=== PATIENT | female | born 1975 | race Asian ===

== ENCOUNTER 2022-02-13 07:11 | Outpatient (REF) | payer OTHER, SELFPAY ==
--- NOTE | ~2022-02-13 | MR_ITS ---
EXAMINATION: MR ANGIOGRAPHY BRAIN WITHOUT CONTRAST MRI BRAIN WITHOUT CONTRAST CLINICAL INFORMATION: Positive family history of brain aneurysm. Evaluate for possible aneurysm or mass. COMPARISON: None MR BRAIN: TECHNIQUE: Multiplanar multisequence MR imaging of the brain was done without IV contrast. FINDINGS: Brain Volume: Within normal limits within the limitations of qualitative assessment. Structural: No malformations. Brain and Meninges: DWI sequence demonstrates no restricted diffusion to suggest acute or subacute cerebral ischemia. A few punctate FLAIR/T2 signal hyperintensities are noted within the subcortical white matter of both frontal lobes, which are nonspecific findings. Otherwise the brain is normal in morphology and signal intensity. Gradient refocused imaging demonstrates no evidence for abnormal magnetic susceptibility artifact to suggest hemorrhage, hemosiderin staining or abnormal mineralization. No extra-axial fluid collections, space-occupying process or mass effect are identified. Coe-white matter differentiation is well maintained. Ventricles and Subarachnoid Spaces: The ventricular system and subarachnoid spaces are within normal limits without hydrocephalus. Orbital Structures: Mildly elongated shape of the orbits, right more than left, noted. Correlate for any associated myopia to explain this. Otherwise grossly unremarkable appearance to the orbits within the limitations of the exam. Vascular: Signal voids are noted in the visualized major intracranial vessels. Osseous Structures, Sinuses/Mastoids, Extracranial Soft Tissues: There is marked nasal septal deviation to the left with a keke bullosa in the right middle turbinate and minor mucosal thickening in the ethmoid complex. Osseous marrow signal intensity appears grossly within normal limits. The visualized extra cranial soft tissue structures appear within normal limits. MR/MR angio head wo con IMPRESSION: 1. A few scattered punctate white matter T2 hyperintensities noted in the frontal lobes bilaterally are nonspecific findings, but can be associated with migraine-associated vasculopathy in the appropriate clinical setting. 2. Sinonasal and orbital findings as discussed above. 3. Otherwise normal noncontrast MRI of the brain. MR ANGIOGRAPHY BRAIN: TECHNIQUE: 3-D [id number] MR angiography of the intracranial circulation was done with multiplanar reformatted reconstructions. FINDINGS: Anterior Circulation: The intracranial internal carotid arteries are patent and normal in caliber with tortuosity of both carotid siphons, right more than left. On image 109 of series 3 and image 128 of the reconstructed coronal series 304, there is a 2 mm sessile outpouching of flow-related enhancement along the lateral wall of the cavernous portion of the right ICA, suggesting a small aneurysm, likely extradural in location. The A1 and A2 segments are patent and normal in caliber. The anterior communicating artery is diminutive but otherwise unremarkable. The M1 segments are patent and normal in caliber with smooth contours with normal-appearing MCA bifurcations and M2 branches bilaterally. There is normal arborization of the visualized A2 and M2 branches. Posterior Circulation: The intradural vertebral arteries are patent and normal in caliber and appear codominant. The left posteroinferior cerebellar artery is visualized and appears normal with visualization of both anteroinferior cerebellar arteries. The basilar artery is patent and normal in caliber with smooth contours and the superior cerebellar and posterior cerebral arteries are patent and normal in caliber. The posterior communicating arteries are not clearly visualized. IMPRESSION: 1. As described above, findings are suggestive of a possible sessile, 2 mm aneurysm arising from the lateral wall of the cavernous right ICA, with considerable tortuosity of the right carotid siphon. Follow-up as per clinical indications. 2. Otherwise unremarkable intracranial MRA.
== END 2022-02-13 07:12 | disposition home or self-care (01) ==
LOC: HO.MRI 07:11
PROVIDERS: PCP Physician Assistant; Visit Provider Physician Assistant
DX: R51.9 Headache, unspecified (principal); Z82.49 Family history of ischemic heart disease and other diseases of the circulatory system
CPT/HCPCS: 70544; 70551

== ENCOUNTER 2022-02-21 15:19 | Outpatient (REF) | payer OTHER, SELFPAY ==
[2022-02-21 15:36] LABS: MANUAL DIFF FLAG NO
[2022-02-21 16:06] LABS: Basophils Absolute Auto 0.1 X10*3/uL (0.0-0.2); Basophils Percent Auto 0.3 % (0-2); Eosinophils Absolute Auto 0.3 X10*3/uL (0.0-0.4); Hematocrit 43.6 % (37.0-47.0); Hemoglobin 15.3 g/dl (12.0-16.0); Imm Gran Abs Auto 0.12 X10*3/uL (0.00-0.03); Imm Gran Pct Auto 0.7 % (0.0-0.4); Lymphocytes Absolute Auto 3.1 X10*3/uL (1.2-4.9); Lymphocytes Percent Auto 18.6 % (20-40); Mean Corpuscular HGB Conc 35.1 g/dl (31.0-35.0); Mean Corpuscular Hemoglobin 31.8 pg (27.0-33.0); Mean Corpuscular Volume 90.6 fL (80.0-98.0); Monocytes Absolute Auto 1.1 X10*3/uL (0.1-1.2); Monocytes Percent Auto 6.8 % (2-11); Neutrophils Absolute Auto 11.9 x10*3/uL (2.0-8.3); Neutrophils Percent Auto 71.6 % (45-73); Platelet Count 368 X10*3/uL (160-400); Red Blood Count 4.81 X10*6/uL (4.20-5.50); Red Cell Distribution Width 11.7 % (11.0-16.0); White Blood Count 16.6 X10*3/uL (4.8-10.8)
[2022-02-21 16:32] LABS: Alanine Aminotransferase 68 U/L (0-31); Albumin Level 4.6 g/dL (3.5-5.0); Alkaline Phosphatase 77 U/L (39-117); Anion Gap 18 (12-20); Aspartate Amino Transferase 42 U/L (5-31); Bilirubin Total 0.6 mg/dL (0.0-1.0); Blood Urea Nitrogen 19 mg/dL (9-16); Calcium 10.3 mg/dL (8.4-10.2); Carbon Dioxide 25 mmol/L (22-29); Chloride 99 mmol/L (96-108); Cholesterol 245 mg/dL; Estimated Glomerular Filt Rate > 60; Glucose Random 96 mg/dL (60-115); HDL Cholesterol 50 mg/dL; Potassium 4.1 mmol/L (3.3-5.1); Sodium 138 mmol/L (135-145); Total Protein 8.3 g/dL (6.5-8.0); Triglycerides 443 mg/dL
[2022-02-21 16:55] LABS: TSH reflex Free T4 1.03 uIU/mL (0.32-4.0); Vitamin D 25-OH Total 24.9 ng/mL (>30)
[2022-02-22 16:02] LABS: Follicle Stimulating Hormone 4.8 mIU/mL; Lutenizing Hormone 4.8 mIU/mL
[2022-03-03 03:37] LABS: Estradiol Free 4.58 pg/mL; Estradiol, Ultrasensitive 293 pg/mL
[2022-03-15 11:02] LABS: Progesterone 0.8
== END 2022-02-21 15:20 | disposition home or self-care (01) ==
LOC: HO.LAB 15:19
PROVIDERS: PCP Physician Assistant; Visit Provider Physician Assistant
DX: Z00.00 Encounter for general adult medical examination without abnormal findings (principal); E55.9 Vitamin D deficiency, unspecified; E51.9 Thiamine deficiency, unspecified
CPT/HCPCS: 36415; 80053; 80061; 82306; 82670; 82681; 83001; 83002; 84144; 84443; 85025

== ENCOUNTER → 2022-03-29 16:07 | Outpatient (REF) | payer OTHER, SELFPAY | LOC: HO.SL 16:07 | PROVIDERS: Visit Provider Psychiatry & Neurology Neurology | DX: R06.83 Snoring (principal) | CPT/HCPCS: 95806 ==

== ENCOUNTER 2022-04-19 08:26 | Outpatient (REF) | payer OTHER, SELFPAY ==
--- NOTE | ~2022-04-19 | US_ITS ---
EXAMINATION: US ABDOMEN COMPLETE CLINICAL INFORMATION: Abnormal levels of serum enzymes. COMPARISON: Ultrasound abdomen complete 10/19/2014. TECHNIQUE: Real-time imaging of the abdominal viscera. FINDINGS: PANCREAS: Normal. ABDOMINAL AORTA: The proximal, mid, and distal segments are normal in caliber. INFERIOR VENA CAVA: Visualized portions are normal. LIVER: The liver is normal in size. The liver contour is normal. There is increased liver echogenicity. No focal hepatic lesion. There is no intrahepatic biliary duct dilatation seen. GALLBLADDER: There is mild wall thickness measuring 0.17 cm. The gallbladder is physiologically distended without evidence of stones, sludge, polyps, or pericholecystic fluid. COMMON BILE DUCT: Normal in caliber measuring 0.34 cm in diameter. RIGHT KIDNEY: Normal. No hydronephrosis. No renal calculi or focal parenchymal lesions. The kidney measures 11.2 cm in maximum dimension. LEFT KIDNEY: Normal. No hydronephrosis. No renal calculi or focal parenchymal lesions. The kidney measures 11.7 cm in maximum dimension. SPLEEN: Normal. The spleen measures 8.9 cm in maximum dimension. FREE FLUID: None. US/US abdomen complete IMPRESSION: 1. Diffuse echogenic liver without focal lesion. 2. The rest of the abdominal ultrasound is unremarkable.
[2022-04-19 11:28] LABS: INTERNATIONAL NORM RATIO 0.9 (0.9-1.1); Prothrombin Time 10.4 SEC (10.0-13.1)
[2022-04-19 11:49] LABS: Cholesterol 244 mg/dL; Gamma Glutamyl Transpeptidase 69 U/L (7-33); HDL Cholesterol 48 mg/dL; LDL Cholesterol Calculated 147 mg/dl; Triglycerides 249 mg/dL
[2022-04-19 12:07] LABS: HBS Num1 54.53 mIU/mL (0-7.99); HBc Num1 0.18 S/CO (0.00-0.79); HBsAGNum1 0.25 S/CO (0.00-0.99); Hepatitis B Core Antibody Nonreactive (Nonreactive); Hepatitis B Surface Antigen Negative (Negative); ~Hepatitis B Surface Antibody REACTIVE (Nonreactive); ~Hepatitis C Antibody Nonreactive (Nonreactive)
[2022-04-19 12:10] LABS: Estimated Average Glucose 111 mg/dL; Hemoglobin A1c % 5.5 %
[2022-04-19 12:30] LABS: Hepatitis A Antibody IgG Nonreactive (Nonreactive)
[2022-04-20 19:49] LABS: Alanine Aminotransferase 79 U/L (0-31); Albumin Level 4.3 g/dL (3.5-5.0); Alkaline Phosphatase 65 U/L (39-117); Aspartate Amino Transferase 55 U/L (5-31); Bilirubin Direct 0.2 mg/dL (0.0-0.5); Bilirubin Total 0.8 mg/dL (0.0-1.0); Ferritin 268 ng/mL (10-250); Iron 132 mcg/dL (30-160); Percent Iron Saturation 44 % (15-50); Total Iron Binding Capacity 297 mcg/dL (228-428); Total Protein 7.3 g/dL (6.5-8.0); Unsaturated Iron Binding 165 ug/dL
[2022-04-23 22:58] LABS: Immunoglobulin G 1292 mg/dL (600-1640)
[2022-04-24 09:33] LABS: Anti Nuclear Antibody Pattern Nuclear, Homogeneous; Anti Nuclear Antibody Screen POSITIVE (NEGATIVE)
[2022-04-25 14:33] LABS: Liver Kidney Microsomal Ab <=20.0 U (<=20.0)
[2022-04-26 11:03] LABS: Smooth Muscle Antibody <20 U (<20)
== END 2022-04-19 08:27 | disposition home or self-care (01) ==
LOC: HO.HMGCX 08:26
PROVIDERS: PCP Physician Assistant; Visit Provider Internal Medicine
DX: R74.8 Abnormal levels of other serum enzymes (principal)
CPT/HCPCS: 36415; 76700; 80061; 80076; 82728; 82784; 82977; 83036; 83540; 85610; 86015; 86038; 86039; 86376; 86704; 86706; 86708; 86803; 87340

== ENCOUNTER 2022-04-20 12:23 | Outpatient (REF) | payer OTHER, SELFPAY | END 2022-04-20 12:24 | disposition home or self-care (01) | LOC: HO.LAB 12:23 | PROVIDERS: Visit Provider Internal Medicine | DX: Z13.89 Encounter for screening for other disorder (principal) ==

== ENCOUNTER 2022-05-03 07:02 | Day surgery (SDC) | payer OTHER, SELFPAY ==
[2022-04-27 13:22] VITALS: BMI 33.1
--- NOTE | 2022-05-02 10:19 | P.CONAN_ITS ---
Documented by User: Merna Lim NP 05/02/22 10:21 HPI - Anesthesia Eval Consult details Narrative: 47yo F for Colonoscopy PMFSH Active Problems Active Problems: All Active Problems (Updated 03/23/22 @ 17:08 by Veronica Contreras MD) Rectal bleeding (Acute) Elevated liver enzymes (Acute) Hypersomnia (Acute) Snoring (Acute) Migraine (Acute) Chronic headaches (Acute) TMJ (temporomandibular joint disorder) (Acute) Cervicalgia (Acute) Hyperlipemia (Acute) Anxiety (Acute) Depression (Acute) Sleep problem (Acute) Asthma (Acute) Past Medical History Medical History Anxiety Asthma Cervicalgia Chronic headaches Depression Hyperlipemia Hypersomnia Migraine Sleep problem Snoring TMJ (temporomandibular joint disorder) Family History Family History Mother Aneurysm Hyperlipidemia Father Hyperlipidemia Skin cancer Atrial fibrillation Daughter Hyperlipidemia Son SVT (supraventricular tachycardia) Cexpm-Fyqwmmpdo-Yetpl (WPW) syndrome Surgical History Surgical History H/O: hysterectomy [place] teeth extracted Social History Social History Are you a primary personal carer to a significant other at home: No Do you presently have visiting nurse or other home services: No Alcohol intake: never Patient Tobacco Use Status: Never used Tobacco Use of substances other than those prescribed or required for medical reasons: No Are you DNR?: No Advance Directives: No Advance Directives Information Provided: Yes Advance Directives on File: No Recently lost weight without trying: No Eating poorly because of decreased appetite: No Nutrition Risks: No Nutritional Risk Poor oral hygiene: No (Intact teeth) Meds Allergies Allergy/AdvReac Type Severity Reaction Status Date / Time shellfish derived Allergy Mild Gastrointestinal Verified 05/03/22 07:14 Upset tree nut Allergy Anaphylaxis Verified 05/03/22 07:14 enviromental Allergy Mild Itchy Uncoded 04/27/22 13:21 Eyes, sneezing, wheezing peanuts Allergy Mild Anaphylaxis Uncoded 04/27/22 13:21 eggs Allergy Unknown Gastrointestinal Uncoded 04/27/22 13:21 Upset Home Medications Medication Instructions Recorded Confirmed Last Taken Type cetirizine 10 mg tablet (Zyrtec) 10 mg PO DAILY 03/21/22 04/27/22 Unknown History cholecalciferol (vitamin D3) 50 50 mcg PO DAILY 03/21/22 04/27/22 Unknown History mcg (2,000 unit) capsule dextroamphetamine-amphetamine 5 mg 1 tab PO BID 03/21/22 04/27/22 Unknown History tablet epinephrine 0.3 mg/0.3 mL IM DAILY PRN Allergic Reaction 03/21/22 03/21/22 Unknown History injection, auto-injector multivitamin with minerals-folic 1 tab PO DAILY 03/21/22 04/27/22 Unknown History acid 200 mcg chewable tablet (Women's Multivitamin Gummies) progesterone micronized 100 mg 100 mg PO QPM 03/21/22 04/27/22 Unknown History capsule triamcinolone acetonide 0.1 % 1 appl topical TID 03/21/22 04/27/22 Unknown History topical cream albuterol sulfate 90 mcg/actuation 1 inh inhalation QID PRN Wheezing 03/23/22 04/27/22 Unknown History aerosol inhaler amitriptyline 10 mg tablet 10 mg PO DAILY 03/23/22 04/27/22 Unknown History fluticasone propionate 44 2 puff inhalation BID 03/23/22 04/27/22 05/03/22 06:00 History mcg/actuation HFA aerosol inhaler (Flovent HFA) Exam Exam Date and Time: May 02, 2022 1019 Height,Weight and Vital Signs: Height 5 ft 3.5 in Weight 86.183 kg Pertinent Lab Results Pertinent Lab Results: Laboratory Tests 02/21/22 02/21/22 15:34 15:34 WBC 16.6 H Hgb 15.3 Hct 43.6 Plt Count 368 Sodium 138 Potassium 4.1 Chloride 99 Carbon Dioxide 25 BUN 19 H Creatinine 0.85 Assessment and Plan Assessment Anesthesia Assessment: Chart Reviewed Documented by User: Keeley Sun MD 05/03/22 07:45 PMFSH Past Medical History Medical History Anxiety Asthma Cervicalgia Chronic headaches Depression Hyperlipemia Hypersomnia Migraine Sleep problem Snoring TMJ (temporomandibular joint disorder) Functional capacity: independent ambulation Patient : No Family History Family History Mother Aneurysm Hyperlipidemia Father Hyperlipidemia Skin cancer Atrial fibrillation Daughter Hyperlipidemia Son SVT (supraventricular tachycardia) Biswh-Bvgdgcviq-Nwowj (WPW) syndrome Family history of problems with anesthesia: No Surgical History Surgical History H/O: hysterectomy [place] teeth extracted History of Problems with Anesthesia: No Social History Social History Are you a primary personal carer to a significant other at home: No Do you presently have visiting nurse or other home services: No Alcohol intake: never Patient Tobacco Use Status: Never used Tobacco Use of substances other than those prescribed or required for medical reasons: No Are you DNR?: No Advance Directives: No Advance Directives Information Provided: Yes Advance Directives on File: No Recently lost weight without trying: No Eating poorly because of decreased appetite: No Nutrition Risks: No Nutritional Risk Poor oral hygiene: No (Intact teeth) Meds Allergies Allergy/AdvReac Type Severity Reaction Status Date / Time shellfish derived Allergy Mild Gastrointestinal Verified 05/03/22 07:14 Upset tree nut Allergy Anaphylaxis Verified 05/03/22 07:14 enviromental Allergy Mild Itchy Uncoded 04/27/22 13:21 Eyes, sneezing, wheezing peanuts Allergy Mild Anaphylaxis Uncoded 04/27/22 13:21 eggs Allergy Unknown Gastrointestinal Uncoded 04/27/22 13:21 Upset Home Medications Medication Instructions Recorded Confirmed Last Taken Type cetirizine 10 mg tablet (Zyrtec) 10 mg PO DAILY 03/21/22 04/27/22 Unknown History cholecalciferol (vitamin D3) 50 50 mcg PO DAILY 03/21/22 04/27/22 Unknown History mcg (2,000 unit) capsule dextroamphetamine-amphetamine 5 mg 1 tab PO BID 03/21/22 04/27/22 Unknown History tablet epinephrine 0.3 mg/0.3 mL IM DAILY PRN Allergic Reaction 03/21/22 03/21/22 Unknown History injection, auto-injector multivitamin with minerals-folic 1 tab PO DAILY 03/21/22 04/27/22 Unknown History acid 200 mcg chewable tablet (Women's Multivitamin Gummies) progesterone micronized 100 mg 100 mg PO QPM 03/21/22 04/27/22 Unknown History capsule triamcinolone acetonide 0.1 % 1 appl topical TID 03/21/22 04/27/22 Unknown History topical cream albuterol sulfate 90 mcg/actuation 1 inh inhalation QID PRN Wheezing 03/23/22 04/27/22 Unknown History aerosol inhaler amitriptyline 10 mg tablet 10 mg PO DAILY 03/23/22 04/27/22 Unknown History fluticasone propionate 44 2 puff inhalation BID 03/23/22 04/27/22 05/03/22 06:00 History mcg/actuation HFA aerosol inhaler (Flovent HFA) Exam Airway Mallampati Class: II TM Dist: >3cm Neck ROM: Full Heart: RRR Lungs: CTA Assessment and Plan Final Anesthetic Review Family History of Problems with Anesthesia: No History of Problems with Anesthesia: No NPO: Yes ASA Class: II Final Preanesthetic Review: No Changes in Pt Med Stat, Meds/Allgs Chart Reviewed, Consent Obtained/Reviewed and Anes Risks/Benef Reviewed Patient Risk: Low Procedure Risk: Low Anesthetic Plan Anesthetic Plan: MAC: Disposition: Standard PACU
[2022-05-03 07:19] VITALS: BP 121/74; PULSE 89; RESP 16; TEMP 36.1; O2SAT 99
--- NOTE | 2022-05-03 07:33 | MHC.SHP ---
Pre-Procedural Eval Section A Date of Service: 05/03/22 Section B Chief Complaint: BRBPR Details of Present Illness: 47 y.o F with hx of intermittent bleeding [place] here for a diagnostic colonoscopy. Father had hx of polyps. Relevant Social History: None Present Medications: see Short Stay Collaborative assessment Medical History: Significant History (Asthma, TMJ disorder, migraines, fatty liver ) History of Previous Operations: Relevant previous surgery/procedure and date(s) (Hysterectomy 2020) Allergies: Allergies Allergy/AdvReac Type Severity Reaction Status Date / Time shellfish derived Allergy Mild Gastrointestinal Verified 05/03/22 07:14 Upset tree nut Allergy Anaphylaxis Verified 05/03/22 07:14 enviromental Allergy Mild Itchy Uncoded 04/27/22 13:21 Eyes, sneezing, wheezing peanuts Allergy Mild Anaphylaxis Uncoded 04/27/22 13:21 eggs Allergy Unknown Gastrointestinal Uncoded 04/27/22 13:21 Upset Review of Systems Review of Systems Comment: 10 point ROS negative except as above Exam Exam Comment: Gen appear: No acute distress, well nourished HEENT: no icterus Chest: No overt resp distress Abd: soft, nontender, nondistended Psych: Stable affect, answering questions appropriately Neuro: A/Ox3 noted to move all extremities spontaneously Ext: no peripheral edema Plan Diagnosis/Plan: Unchanged I have reviewed the history and physical and performed a pertinent physical examination on my patient. No changes have occurred unless specified. Time Spent With Patient Time: Total time managing care of this patient today ____ minutes.
--- NOTE | 2022-05-03 07:35 | P.OP_ITS ---
Operative Note Operative Note Date of Service: 05/03/22 Narrative: Procedure: Colonoscopy Indication: Bright red bleeding per rectum Endoscopist: Veronica Contreras MD Anesthesia Provider: Meera Johnson CRNA Anesthesia type: MAC Instrument: Olympus [id number]-H190L Consent: Indication, risks vs benefits, and alternatives were discussed with the patient who gave written informed consent to proceed. EKG, pulse, pulse oximetry and blood pressure were monitored throughout the procedure. Please see anesthesia flowsheet. Procedure: The patient was brought to the procedure room and placed in the left lateral decubitus position. IV medications were administered by the anesthesia provider in attendance. A digital rectal exam was performed which was normal. The colonoscope was then inserted through the anus and advanced through the colon to the cecum at 85 cm,and terminal ileum. Mucosa was carefully examined under high definition white light as the instrument was slowly withdrawn in a retrograde panoramic fashion. Retroflexion was performed in ascending colon and rectum. The procedure was not difficult. There were no immediate obvious complications. The quality of the prep was BBPS: 3+2+3 = adequate Withdrawal time 13 minutes. Limitations: No limitations. Findings: Mucosa: Normal to cecum and terminal ileum. Protruding lesions: * 1 sessile polyp of size 6 mm in sigmoid colon. Cold snare polypectomy was performed. The polyp was completely removed and retrieved. * Large internal hemorrhoids without stigmata of recent bleeding. Impression: 1. Normal colon and terminal ileum mucosa 2. Total of 1 polyp removed from sigmoid colon. 3. Internal hemorrhoids Recommendations: - Follow path results. - Repeat colonoscopy in 7-10 years if polyp is adenoma.
[2022-05-03] MEDS: Lactated Ringers 1,000 ML 100 ML IVCONT (07:40)
[2022-05-03 09:04] VITALS: BP 108/60; PULSE 800; RESP 18; TEMP 36.4; O2SAT 100
--- NOTE | 2022-05-03 09:11 | HO.POSTANES ---
Post Anesthesia Evaluation Post Anesthesia Evaluation Vital Signs: Vital Signs Temp Pulse Resp BP Pulse Ox O2 Del Method O2 Flow Rate 05/03/22 09:04 97.6 F 800 H 18 108/60 100 Simple Mask 6 05/03/22 07:19 96.9 F 89 16 121/74 99 Room Air Anesthesia: Monitored Mental Status: Awake Pain Control: Satisfactory Nausea/Vomiting: None Hydration: Adequate Anesthesia-Related Issues: No Anes. Related Issues
[2022-05-03 09:19] VITALS: BP 127/73; PULSE 74; RESP 18; TEMP 36.4; O2SAT 99
== END 2022-05-03 11:15 | disposition home or self-care (01) ==
PROVIDERS: PCP Physician Assistant; Visit Provider Internal Medicine
PROC: 0DJD8ZZ Inspection of Lower Intestinal Tract, Via Natural or Artificial Opening Endoscopic (ICD-10-PCS; CPT 45378; principal; 2022-05-03 08:20)
DX: K62.5 Hemorrhage of anus and rectum (principal); R74.8 Abnormal levels of other serum enzymes; Z83.71 Family history of colonic polyps; K63.5 Polyp of colon; K64.8 Other hemorrhoids; K76.0 Fatty (change of) liver, not elsewhere classified; E78.5 Hyperlipidemia, unspecified; Z83.3 Family history of diabetes mellitus; J45.909 Unspecified asthma, uncomplicated; G47.10 Hypersomnia, unspecified; F51.9 Sleep disorder not due to a substance or known physiological condition, unspecified; R06.83 Snoring; G43.909 Migraine, unspecified, not intractable, without status migrainosus; Z79.51 Long term (current) use of inhaled steroids; Z79.899 Other long term (current) drug therapy
CPT/HCPCS: 45385; 88305

== ENCOUNTER → 2022-05-09 15:59 | Outpatient (BNVA) | payer OTHER, SELFPAY | PROVIDERS: PCP Physician Assistant; Visit Provider Internal Medicine | DX: R74.8 Abnormal levels of other serum enzymes (principal) ==

== ENCOUNTER 2022-07-12 07:38 | Outpatient (REF) | payer OTHER, SELFPAY ==
[2022-07-12 10:54] LABS: MANUAL DIFF FLAG NO
[2022-07-12 11:27] LABS: Basophils Absolute Auto 0.1 X10*3/uL (0.0-0.2); Basophils Percent Auto 0.5 % (0-2); Eosinophils Absolute Auto 0.4 X10*3/uL (0.0-0.4); Eosinophils Percent Auto 3.9 % (0-4); Hematocrit 42.9 % (37.0-47.0); Hemoglobin 14.6 g/dl (12.0-16.0); Imm Gran Abs Auto 0.04 X10*3/uL (0.00-0.03); Imm Gran Pct Auto 0.4 % (0.0-0.4); Lymphocytes Absolute Auto 2.3 X10*3/uL (1.2-4.9); Lymphocytes Percent Auto 21.1 % (20-40); Mean Corpuscular Hemoglobin 31.6 pg (27.0-33.0); Mean Corpuscular Volume 92.9 fL (80.0-98.0); Mean Platelet Volume 10.6 fL (9.4-12.3); Monocytes Absolute Auto 0.7 X10*3/uL (0.1-1.2); Monocytes Percent Auto 6.9 % (2-11); Neutrophils Absolute Auto 7.2 x10*3/uL (2.0-8.3); Neutrophils Percent Auto 67.2 % (45-73); Platelet Count 357 X10*3/uL (160-400); Red Blood Count 4.62 X10*6/uL (4.20-5.50); Red Cell Distribution Width 11.7 % (11.0-16.0); White Blood Count 10.7 X10*3/uL (4.8-10.8)
[2022-07-12 11:56] LABS: Alanine Aminotransferase 74 U/L (0-31); Alkaline Phosphatase 66 U/L (39-117); Anion Gap 15 (12-20); Aspartate Amino Transferase 42 U/L (5-31); Bilirubin Total 0.6 mg/dL (0.0-1.0); Blood Urea Nitrogen 18 mg/dL (9-16); Calcium 9.2 mg/dL (8.4-10.2); Carbon Dioxide 25 mmol/L (22-29); Chloride 105 mmol/L (96-108); Estimated Glomerular Filt Rate > 60; Glucose Fasting 101 mg/dL (60-99); Potassium 4.5 mmol/L (3.3-5.1); Sodium 140 mmol/L (135-145); Total Protein 6.9 g/dL (6.5-8.0)
[2022-07-13 18:53] LABS: Follicle Stimulating Hormone 4.2 mIU/mL; Lutenizing Hormone 6.4 mIU/mL
[2022-07-15 12:04] LABS: TS Negative Control Passed; TS Panel A 0; TS Panel B 0; TS Positive Control Passed; TSpotTB Negative (Negative)
[2022-07-18 15:18] LABS: Progesterone 0.1 ng/mL
[2022-07-19 23:13] LABS: Estradiol Ultra Sensitive 127 pg/mL
== END 2022-07-12 07:39 | disposition home or self-care (01) ==
LOC: HO.10HDL 07:38
PROVIDERS: Visit Provider Physician Assistant
DX: J45.998 Other asthma (principal); Z90.710 Acquired absence of both cervix and uterus
CPT/HCPCS: 36415; 80053; 82670; 83001; 83002; 84144; 85025; 86481

== ENCOUNTER 2022-07-12 07:56 | Outpatient (REF) | payer OTHER, SELFPAY ==
--- NOTE | ~2022-07-12 | MM_ITS ---
EXAMINATION: MM SCREENING DIGITAL BREAST TOMOSYNTHESIS, BILATERAL CLINICAL INFORMATION: Screening. Asymptomatic. The lifetime risk of breast cancer based on the Tyrer-Cuzick Model is 9%. COMPARISON: Outside mammography: 01/25/2021, 01/28/2018, 01/22/2017 ([facility]) TECHNIQUE: Digital breast tomosynthesis is performed in both the craniocaudal and mediolateral oblique views along with computer-aided detection (CAD). Synthesized 2D images are generated from the tomosynthesis. FINDINGS: There are scattered areas of fibroglandular density (ACR BI-RADS breast composition Category b). Breast tissue composition borders on heterogeneously dense. Parenchymal pattern is similar to prior outside exams and there is no developing density or architectural abnormality. There are no significant masses, abnormal calcifications, or other abnormalities. The axilla are unremarkable. No significant changes. MM/MM tomosynthesis screening BI IMPRESSION: No mammographic evidence of malignancy. ASSESSMENT: BI-RADS 1: Negative RECOMMENDATION: Routine annual mammography screening. This patient's information was entered into a reminder system with a target due date for their next mammogram.
== END 2022-07-12 07:57 | disposition home or self-care (01) ==
LOC: HO.MAMMO 07:56
PROVIDERS: PCP Physician Assistant; Visit Provider Physician Assistant
DX: Z12.31 Encounter for screening mammogram for malignant neoplasm of breast (principal)
CPT/HCPCS: 77063; 77067

== ENCOUNTER → 2022-08-31 15:59 | Outpatient (BNVA) | payer OTHER, SELFPAY | PROVIDERS: PCP Physician Assistant; Visit Provider Internal Medicine | DX: Z13.89 Encounter for screening for other disorder (principal) ==

== ENCOUNTER 2022-11-22 07:58 | Outpatient (REF) | payer OTHER, SELFPAY | END 2022-11-22 07:59 | disposition home or self-care (01) | LOC: HO.10HDL 07:58 | PROVIDERS: Visit Provider Internal Medicine | DX: R74.8 Abnormal levels of other serum enzymes (principal) | CPT/HCPCS: 36415; 80076; 85027 ==

== ENCOUNTER 2022-11-26 08:33 | Outpatient (REF) | payer OTHER, SELFPAY ==
--- NOTE | ~2022-11-26 | US_ITS ---
EXAMINATION: US COMPLETE ABDOMEN WITH LIVER ELASTOGRAPHY CLINICAL INFORMATION: Abnormal liver function tests. COMPARISON: None available. TECHNIQUE: Real-time imaging of the abdominal viscera. Noninvasive ultrasound liver fibrosis assessment is performed using Juma ElastPQ point quantification shear wave elastography (2D-SWE) with a C5-2 MHz transducer. Multiple elastography samples are obtained. FINDINGS: PANCREAS: Normal. The visualized pancreatic head and body are normal in appearance. The remainder of the pancreas is obscured from visualization by the overlying bowel gas. ABDOMINAL AORTA: The proximal, middle, and distal aortic segments are normal in caliber. INFERIOR VENA CAVA: Visualized portions are normal. LIVER: The liver demonstrates increased size, normal contour and increased echogenicity. No focal lesion or intrahepatic biliary duct dilatation. The right lobe measures 17.6 cm in length. The left lobe measures 13.9 cm in length. Portal flow is towards the liver (hepatopetal). Shear wave liver elastography median stiffness is 2.16 m/s (reference: normal median stiffness is 1.3 m/s or less). IQR/median stiffness to assess sampling precision is 0.03 (reference: good quality data set is IQR/median stiffness of 0.15 or less). GALLBLADDER: Normal. The gallbladder is physiologically distended without evidence of stones, sludge, polyps, wall thickening or pericholecystic fluid. COMMON BILE DUCT: Normal in caliber measuring 0.2 cm in diameter. RIGHT KIDNEY: Normal. No hydronephrosis. No renal calculi or focal parenchymal lesions. The kidney measures 10.9 cm in maximum dimension. LEFT KIDNEY: Normal. No hydronephrosis. No renal calculi or focal parenchymal lesions. The kidney measures 11.9 cm in maximum dimension. SPLEEN: Normal. The spleen measures 9.9 cm in maximum dimension. FREE FLUID: None. US/US abdomen comp w elastography IMPRESSION: 1. There is generalized increase in hepatic echotexture, consistent with fatty infiltration or hepatocellular disease. Please correlate clinically. No focal hepatic mass or intrahepatic biliary dilatation is seen. 2. Liver elastography: Measuremensts are consistent with compensated advanced chronic liver disease. 3. There is mild hepatomegaly. REFERENCE: Society of Radiologists in Ultrasound Liver Stiffness Thresholds (2020): LIVER STIFFNESS THRESHOLDS: *Liver Stiffness equal or less than 1.3 m/s: High probability of being normal. *Liver Stiffness less than 1.7 m/s: In the absence of other known clinical signs, rules out compensated advanced chronic liver disease. *Liver Stiffness 1.7-2.1 m/s: Suggestive of compensated advanced chronic liver disease but need further test for confirmation. *Liver Stiffness over 2.1 m/s: Rules in compensated advanced chronic liver disease. *Liver Stiffness over 2.4 m/s: Suggestive of clinically significant portal hypertension. QUALITY OF DATA SET: *IQR/Median value equal or less than 0.15 implies a quality data set. *IQR/Median value over 0.15 implies a poor quality data set. SIGNIFICANT CHANGE FROM PRIOR EXAM: Significant change if liver stiffness measurement is 10% or greater from prior exam. OTHER CONSIDERATIONS: The stage of liver fibrosis may be overestimated in the setting of acute hepatitis, liver inflammation, elevated liver function tests, hepatic vascular congestion, obstructive cholestasis, non-fasting state, and infiltrative diseases such as amyloidosis and lymphoma. In some patients with NAFLD, the liver stiffness thresholds for compensated advanced chronic liver disease may be lower. In causes other than viral hepatitis and NAFLD, liver stiffness thresholds are not well established.
== END 2022-11-26 08:34 | disposition home or self-care (01) ==
LOC: HO.US 08:33
PROVIDERS: PCP Physician Assistant; Visit Provider Internal Medicine
DX: R74.8 Abnormal levels of other serum enzymes (principal)
CPT/HCPCS: 76705; 76981

== ENCOUNTER 2022-11-28 16:02 | Outpatient (AMB) | payer OTHER, SELFPAY ==
[2022-11-28 16:04] VITALS: BP 135/74; PULSE 90; BMI 33.8
--- NOTE | 2022-11-28 16:04 | MHC.OFFVIS ---
Intake Vital Signs 11/28/22 16:04 Height 5 ft 3.5 in Weight 194 lb 0.108 oz BMI 33.8 BP 135/74 Blood Pressure Location Lt brachial Position Sitting Pulse 90 Intake Visit Reasons: 3 month follow up Intake Note: Kait presents in the office as a 3 month follow up. CC: US on Saturday - She states no concerns today. Allergies shellfish derived Allergy (Mild, Verified 11/28/22 16:06) Gastrointestinal Upset tree nut Allergy (Verified 11/28/22 16:06) Anaphylaxis enviromental Allergy (Mild, Uncoded 11/28/22 16:06) Itchy Eyes, sneezing, wheezing peanuts Allergy (Mild, Uncoded 11/28/22 16:06) Anaphylaxis eggs Allergy (Unknown, Uncoded 11/28/22 16:06) Gastrointestinal Upset HPI HPI Comments History of Present Illness Details This is a 47-year-old female presents to the office today for follow up for rectal bleeding and fatty liver. Initial visit 03/23/2022: Patient states that for the last few years, ordered of, she has noticed blood streaked on stool and on wiping. This is often associated with hard stool, although has sometimes seen and with the soft stool as well. Does not have any abdominal pain, nausea, vomiting, diarrhea, melena with this. Denies any unintentional weight loss. Family history is pertinent for polyps in father. Patient is unsure of his age of diagnosis. In addition, has been told she has fatty liver disease for the last few years. Most recent LFTs have significantly elevated transaminases with ALT to ALT ratio 2-1 consistent with R[place]ORD. Risk factors include obesity, hyperlipidemia, family history of diabetes. 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 Surgical history: Hysterectomy 2020 Colonoscopy 05/03/2022: 6 mm hyperplastic polyp in the sigmoid colon. Adequate preparation. Large internal hemorrhoids. 05/09/23: Patient reports that she continues to see intermittent red blood, but obviously is reassured that this is likely from hemorrhoids as initially expected. Results of recent workup for elevated transaminases also reviewed. Ultrasound consistent with fatty liver. In addition, labs show normal INR, mildly high ferritin with normal saturation, normal A1c, LARS positive but anti liver kidney and anti smooth muscle antibody negative. Patient is not immune to hepatitis-A 08/31/22: Continues with intermittent BRBPR even without straining. Occurs at least once a week. Otherwise no acute GI complaints. LFTs from Jun reviewed transaminases more or less unchanged. Pt has not been able to take Vit E regularly. 11/28/22: Continues with intermittent BRBPR despite taking anusol suppositories. However on further review pt did not complete 5-7 day course but instead took those sporadically PRN. Has been taking fiber. Took Vit E x 3 months. Labs reviewed and LFts continue to be elevated. However reassuringly Fib 4 is low. [facility] Medical History Anxiety Asthma Cervicalgia Chronic headaches Depression Hyperlipemia Hypersomnia Migraine Sleep problem Snoring TMJ (temporomandibular joint disorder) Surgical History H/O: hysterectomy Hx of colonoscopy [place] teeth extracted Family History Mother Aneurysm Hyperlipidemia Father Hyperlipidemia Skin cancer Atrial fibrillation Daughter Hyperlipidemia Son SVT (supraventricular tachycardia) Weqfe-Ujaxdvkvy-Ghopg (WPW) syndrome Social History Are you a primary cardiac care nurse to a significant other at home: No Do you presently have visiting nurse or other home services: No Alcohol intake: never Patient Tobacco Use Status: Never used Tobacco Review of Systems Const All systems reviewed & are unremarkable except as noted in HPI and below Physical Exam Vital Signs: Last Vital Signs Pulse 90 11/28/22 16:04 BP 135/74 11/28/22 16:04 BMI result Body Mass Index 33.8 Gen appear: No acute distress, well nourished HEENT: no icterus, no cervical lymphadenopathy Chest: No overt resp distress CVS: S1/S2, regular Abd: soft, nontender, nondistended Psych: Stable affect, answering questions appropriately Neuro: A/Ox3 noted to move all extremities spontaneously Ext: no peripheral edema Assessment & Plan Assessment & Plan (1) Elevated liver enzymes: Code(s): R74.8 - Abnormal levels of other serum enzymes Plan: Likely secondary to MAFLD/R[place]. Patient drinks rarely. No family history of liver diseases. Fib-4 0.66 (no advanced fibrosis). Counseled on weight loss of at least 10% body weight. Was also advised to discuss statin therapy with her PCP given hyperlipidemia to control metabolic factors. Since has low Fib 4, will see her in a year. (2) Rectal bleeding: Code(s): K62.5 - Hemorrhage of anus and rectum Plan: Likely secondary to hemorrhoidal bleeding based on colonoscopy results. Pt was counseled to use topical steroid rectally at least 5-7 days in a row for relief. Lidocaine-hydrocortisone cream Rxed as per her preference. Cont fiber, sitz bath Would like to hold off referral for surgical management at this time. Medications: New lidocaine HCl-hydrocortison ac 3 %-2.5 % (7 gram) 1 appl [place] BEDTIME 7 grams 0RF Coding Level of Care Code Est Pt Level 4 (64182) Diagnoses Elevated liver enzymes R74.8 Rectal bleeding K62.5
== END 2022-11-28 16:25 | disposition home or self-care (01) ==
PROVIDERS: PCP Physician Assistant; Visit Provider Internal Medicine
DX: R74.8 Abnormal levels of other serum enzymes (principal); K62.5 Hemorrhage of anus and rectum
CPT/HCPCS: 99214

== ENCOUNTER → 2022-11-28 16:02 | Outpatient (BNVA) | payer OTHER, SELFPAY | PROVIDERS: PCP Physician Assistant; Visit Provider Internal Medicine ==

== ENCOUNTER 2023-07-18 07:44 | Outpatient (REF) | payer OTHER, SELFPAY | END 2023-07-18 07:45 | disposition home or self-care (01) | LOC: HO.MAMMO 07:44 | PROVIDERS: PCP Physician Assistant; Visit Provider Physician Assistant | DX: Z12.31 Encounter for screening mammogram for malignant neoplasm of breast (principal) | CPT/HCPCS: 77063; 77067 ==

== ENCOUNTER → 2023-07-18 07:45 | Outpatient (BNV) | payer OTHER, SELFPAY | PROVIDERS: PCP Physician Assistant; Visit Provider Radiology Diagnostic Radiology | DX: Z12.31 Encounter for screening mammogram for malignant neoplasm of breast (principal) | CPT/HCPCS: 77063; 77067 ==

== ENCOUNTER 2023-07-23 09:18 | Outpatient (REF) | payer OTHER, SELFPAY ==
[2023-07-23 13:02] LABS: Hemoglobin 15.1 g/dl (12.0-16.0); Mean Corpuscular HGB Conc 34.3 g/dl (31.0-35.0); Mean Corpuscular Hemoglobin 31.8 pg (27.0-33.0); Mean Corpuscular Volume 92.6 fL (80.0-98.0); Mean Platelet Volume 10.3 fL (9.4-12.3); Platelet Count 395 X10*3/uL (160-400); Red Blood Count 4.75 X10*6/uL (4.20-5.50); Red Cell Distribution Width 11.9 % (11.0-16.0); White Blood Count 10.1 X10*3/uL (4.8-10.8)
[2023-07-23 14:17] LABS: Alanine Aminotransferase 62 U/L (0-31); Albumin Level 4.3 g/dL (3.5-5.0); Alkaline Phosphatase 68 U/L (39-117); Aspartate Amino Transferase 40 U/L (5-31); Bilirubin Direct 0.1 mg/dL (0.0-0.5); Bilirubin Total 0.5 mg/dL (0.0-1.0); Cholesterol 248 mg/dL (<200); HDL Cholesterol 50 mg/dL (>40); LDL Cholesterol Calculated 151 mg/dL (<100); Total Protein 7.8 g/dL (6.5-8.0); Triglycerides 239 mg/dL (<150)
[2023-07-23 14:33] LABS: Vitamin D 25-OH Total 21.9 ng/mL (>30)
== END 2023-07-23 09:19 | disposition home or self-care (01) ==
LOC: HO.HKASLDS 09:18
PROVIDERS: PCP Physician Assistant; Visit Provider Internal Medicine
DX: Z00.00 Encounter for general adult medical examination without abnormal findings (principal); E55.9 Vitamin D deficiency, unspecified; R53.83 Other fatigue; R74.8 Abnormal levels of other serum enzymes
CPT/HCPCS: 36415; 80061; 80076; 82306; 84443; 85027

== ENCOUNTER 2023-09-18 07:44 | Outpatient (REF) | payer OTHER, SELFPAY ==
--- NOTE | ~2023-09-18 | XR_ITS ---
EXAMINATION: XR FOOT, LEFT CLINICAL INFORMATION: Pain in left foot. COMPARISON: None available. TECHNIQUE: 4 views of the left foot. FINDINGS: Moderate degenerative changes in the first metatarsophalangeal joint with joint space narrowing and hypertrophic change. Small calcification along the dorsal aspect of the calcaneus. Calcifications overlying the medial aspect of the IP joint of the great toe, difficult to confirm intra-articular versus extratesticular location, but more likely extra-articular. XR/XR foot LT min 3V IMPRESSION: 1. Moderate degenerative changes first metatarsophalangeal joint. 2. Calcifications overlying the medial aspect of the IP joint of the great toe, difficult to confirm intra-articular versus extratesticular location, but more likely extra-articular.
== END 2023-09-18 07:45 | disposition home or self-care (01) ==
LOC: HO.XRAY 07:44
PROVIDERS: Visit Provider Nurse Practitioner Family
DX: M79.672 Pain in left foot (principal)
CPT/HCPCS: 73630

== ENCOUNTER 2023-11-25 15:01 | Outpatient (AMB) | payer OTHER, SELFPAY ==
--- NOTE | 2023-11-25 14:59 | MHC.OFFVIS ---
Vital Signs 11/25/23 15:00 Height 5 ft 3.5 in BP 140/84 H Blood Pressure Location Rt brachial Position Sitting Respiration 16 Pulse 108 H Pulse Source Pulse Oximeter Pulse Oximetry (%) 99 Oxygen Delivery Method Room Air Intake Visit Reasons: Follow Up Intake Note: Pt presents to the office for follow up for cervicalgia. 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 Allergies shellfish derived Allergy (Mild, Verified 11/25/23 14:59) Gastrointestinal Upset tree nut Allergy (Verified 11/25/23 14:59) Anaphylaxis enviromental Allergy (Mild, Uncoded 11/25/23 14:59) Itchy Eyes, sneezing, wheezing peanuts Allergy (Mild, Uncoded 11/25/23 14:59) Anaphylaxis eggs Allergy (Unknown, Uncoded 11/25/23 14:59) Gastrointestinal Upset Medication List - Last Reconciled 11/25/23 by Yoli Tapia MD albuterol sulfate 90 mcg/actuation 1 inh inhalation QID PRN cetirizine (Zyrtec) 10 mg PO DAILY cholecalciferol (vitamin D3) 1,250 mcg PO QWEEK 90 days dextroamphetamine-amphetamine 10 mg (Adderall) 10 mg PO DAILY epinephrine IM DAILY PRN fluticasone propion-salmeterol 250-50 mcg/dose (Advair Diskus) ea inhalation BID hydrocortisone acetate (Anusol-HC) 25 mg [place] BEDTIME lidocaine HCl-hydrocortison ac 3 %-2.5 % (7 gram) 1 appl [place] BEDTIME magnesium oxide 400 mg PO DAILY montelukast 10 mg PO DAILY multivit with min-folic acid 200 mcg (Women's Multivitamin Gummies) 1 tab PO DAILY triamcinolone acetonide 0.1% 1 appl topical TID HPI Comments Details: 48y/o female comes for follow up of headaches, neck pain and abnormal MRI.she saw a chiropractor for her neck and it has helped significantly. Her migraines are less frequent - 2-3 days a month- pressure , retroorbital , can be stabbing unilateral or bilateral , photophobia , phonophobia and occasional nausea .Excedrin helps. She had headaches as a teenager - usually with her menstrual cycle - well controlled with excedrin or advil .Since 2017 she was going through a divorce, which affected her sleep, headaches worsened in intensity and frequency .She also had Depression, anxiety- was tried on zoloft citalopram and did therapy. she is on topiramate 25 mg bid and adderall ( given by psychiatrist) In past 2 years started to notice neck pain and tightness and upper back pain. she stopped working nights in October 2021.Her headaches decreased in frequency she had hysterectomy September 2020 . She sleeps ok - wakes up twice a night to take the dog out but can fall asleep. No daytime fatigue or sleepiness. Her Vit D was 13 in the past and she had excessive fatigue at that time. She sometimes sleep 5 hrs a night or less. . SHe had MRA which showed a small sessile aneurysm . she also reports TMJ and has been a using a mouth guard but still wakes up with stiff neck. [facility] Medical History (Updated 11/25/23 @ 15:22 by Yoli Tapia MD) Aneurysm Migraine headache without aura Hypersomnia Snoring Migraine Chronic headaches TMJ (temporomandibular joint disorder) Cervicalgia Hyperlipemia Anxiety Depression Sleep problem Asthma Surgical History Hx of colonoscopy H/O: hysterectomy [place] teeth extracted Family History Mother Aneurysm Hyperlipidemia Father Hyperlipidemia Skin cancer Atrial fibrillation Daughter Hyperlipidemia Son SVT (supraventricular tachycardia) Bixiu-Hygpxzevj-Nyyeh (WPW) syndrome Social History Are you a primary child care coordinator to a significant other at home: No Do you presently have visiting nurse or other home services: No Alcohol intake: never Patient Tobacco Use Status: Never used Tobacco Physical Exam Const General: cooperative, healthy appearing and comfortable Nutritional Appearance: average body habitus Orientation/consciousness: patient oriented x3 Limitations: no limitations HEENT Head: Yes normal to inspection Eyes Pupils: Equal, round and reactive pupils present Neck Other: tightness in eliana trapezius Tightness in eliana TMJ Neck: Yes normal visual inspection Neuro General: patient oriented x3, tone normal, moves all extremities and no focal motor deficits Cranial nerves: Yes CN's II-XII intact bilaterally, Yes Equal, round and reactive pupils present, Yes Bilaterally intact EOM present, Yes Nystagmus not present, Yes Normal facial strength present, Yes Midline tongue present, Yes Symmetric palate elevation present and Yes Ability to bilaterally elevate shoulders present Cognition (Neuro): normal cognition Gait exam (Neuro): Normal gait present Motor exam (neuro): 5/5 motor strength present throughout and Normal motor muscle tone present throughout Coordination: [id number]-oche test normal Psych Affect: Anxious affect present Assessment & Plan Assessment & Plan (1) Migraine headache without aura: Code(s): G43.009 - Migraine without aura, not intractable, without status migrainosus Category: Medical (2) TMJ (temporomandibular joint disorder): Code(s): M26.609 - Unspecified temporomandibular joint disorder, unspecified side Category: Medical (3) Aneurysm: Code(s): I72.9 - Aneurysm of unspecified site Category: Medical Plan Continue topiramate 25mg bid Magnesium 400mg qhs Restart flexeril 5 mg qhs will consider botox. MRA to reevaluate aneurysm in right ICA Orders: Orders MR angio head wo con Today I72.9 - Aneurysm of unspecified site Medications: New cyclobenzaprine 5 mg PO BEDTIME 30 tabs 6RF Discontinued cyclobenzaprine Discontinued Reason: Entered in error 5 mg PO BEDTIME 30 tabs 6RF Coding Level of Care Code Est Pt Level 4 (95791) Diagnoses Migraine headache without aura G43.009 TMJ (temporomandibular joint disorder) M26.609 Aneurysm I72.9
[2023-11-25 15:00] VITALS: BP 140/84; PULSE 108; RESP 16; O2SAT 99
== END 2023-11-25 15:41 | disposition home or self-care (01) ==
LOC: HO.HSMS 15:01
PROVIDERS: PCP Physician Assistant; Visit Provider Psychiatry & Neurology Neurology
DX: G43.009 Migraine without aura, not intractable, without status migrainosus (principal); M26.609 Unspecified temporomandibular joint disorder, unspecified side; I72.9 Aneurysm of unspecified site
CPT/HCPCS: 99214

== ENCOUNTER → 2023-11-25 15:01 | Outpatient (BNVA) | payer OTHER, SELFPAY | PROVIDERS: PCP Physician Assistant; Visit Provider Psychiatry & Neurology Neurology ==

== ENCOUNTER 2023-12-27 07:14 | Outpatient (REF) | payer OTHER, SELFPAY ==
--- NOTE | ~2023-12-27 | MR_ITS ---
EXAMINATION: MR ANGIOGRAPHY BRAIN WITHOUT CONTRAST CLINICAL INFORMATION: Aneurysm follow-up COMPARISON: MRA of the head without contrast 02/13/2022 TECHNIQUE: Noncontrast bchc-co-nntsey MRA of the head was performed FINDINGS: Normal flow-related signal within the anterior circulation without evidence of focal stenosis or occlusion of the intradural internal carotid, middle cerebral, or anterior cerebral arteries. Normal flow-related signal within the posterior circulation without evidence of focal stenosis or occlusion of the intradural vertebral, basilar, superior cerebellar, or posterior cerebral arteries. No demonstrated intradural aneurysms. Stable 1 to 2 mm posterolaterally directed outpouching involving the distal cavernous right ICA (series 2 image 102), possibly representing an aneurysm. 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 No intradural aneurysm is identified. Electronically signed by: Mane Nelson MD 01/20/2024 03:53 PM EDT
== END 2023-12-27 07:15 | disposition home or self-care (01) ==
LOC: HO.MRI 07:14
PROVIDERS: Visit Provider Psychiatry & Neurology Neurology
DX: I72.9 Aneurysm of unspecified site (principal)
CPT/HCPCS: 70544

== ENCOUNTER 2023-12-30 15:28 | Outpatient (AMB) | payer OTHER, SELFPAY ==
--- NOTE | 2023-12-30 15:28 | MHC.OFFVIS ---
Intake Visit Reasons: 1 year follow up Intake Note: Kait presents as a telehealth today for a 1 year follow up. CC: Patient is not having any concerns at this time. Cyber Ops Planner Required: No Allergies shellfish derived Allergy (Mild, Verified 12/30/23 15:34) Gastrointestinal Upset tree nut Allergy (Verified 12/30/23 15:34) Anaphylaxis enviromental Allergy (Mild, Uncoded 12/30/23 15:34) Itchy Eyes, sneezing, wheezing peanuts Allergy (Mild, Uncoded 12/30/23 15:34) Anaphylaxis eggs Allergy (Unknown, Uncoded 12/30/23 15:34) Gastrointestinal Upset HPI Comments Details: This is a 47-year-old female presents to the office today for follow up for rectal bleeding and fatty liver. Initial visit 03/23/2022: Patient states that for the last few years, ordered of, she has noticed blood streaked on stool and on wiping. This is often associated with hard stool, although has sometimes seen and with the soft stool as well. Does not have any abdominal pain, nausea, vomiting, diarrhea, melena with this. Denies any unintentional weight loss. Family history is pertinent for polyps in father. Patient is unsure of his age of diagnosis. In addition, has been told she has fatty liver disease for the last few years. Most recent LFTs have significantly elevated transaminases with ALT to ALT ratio 2-1 consistent with [place]. Risk factors include obesity, hyperlipidemia, family history of diabetes. 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 Surgical history: Hysterectomy 2020 Colonoscopy 05/03/2022: 6 mm hyperplastic polyp in the sigmoid colon. Adequate preparation. Large internal hemorrhoids. 05/09/23: Patient reports that she continues to see intermittent red blood, but obviously is reassured that this is likely from hemorrhoids as initially expected. Results of recent workup for elevated transaminases also reviewed. Ultrasound consistent with fatty liver. In addition, labs show normal INR, mildly high ferritin with normal saturation, normal A1c, LARS positive but anti liver kidney and anti smooth muscle antibody negative. Patient is not immune to hepatitis-A 08/31/22: Continues with intermittent BRBPR even without straining. Occurs at least once a week. Otherwise no acute GI complaints. LFTs from Jun reviewed transaminases more or less unchanged. Pt has not been able to take Vit E regularly. 11/28/22: Continues with intermittent BRBPR despite taking anusol suppositories. However on further review pt did not complete 5-7 day course but instead took those sporadically PRN. Has been taking fiber. Took Vit E x 3 months. Labs reviewed and LFts continue to be elevated. However reassuringly Fib 4 is low. 12/30/23: Here for video televisit. No acute GI issues. Has been working on her weight and now weighs 185# Labs reviewed, persistent elevation of LFTs, as well as abnormal cholesterol. Has not been started on her statin yet. Vitamin-D remains exceedingly low despite high-dose supplementation. Patient says that she has always had issues with absorbing vitamin-D . Recently started on magnesium and B complex for headaches by Neurology. Previous magnesium supplement would give her diarrhea, but now switched to magnesium glycinate. [facility] Medical History Aneurysm Migraine headache without aura Hypersomnia Snoring Migraine Chronic headaches TMJ (temporomandibular joint disorder) Cervicalgia Hyperlipemia Anxiety Depression Sleep problem Asthma Surgical History Hx of colonoscopy H/O: hysterectomy [place] teeth extracted Family History Mother Aneurysm Hyperlipidemia Father Hyperlipidemia Skin cancer Atrial fibrillation Daughter Hyperlipidemia Son SVT (supraventricular tachycardia) Xavqq-Vqixozwjk-Cfixx (WPW) syndrome Social History Are you a primary disabilities caregiver to a significant other at home: No Do you presently have visiting nurse or other home services: No Alcohol intake: never Patient Tobacco Use Status: Never used Tobacco Physical Exam Vital Signs: Video tele No apparent distress Speaking in full sentences Does not appear short of breath No facial asymmetry Telehealth Telehealth [facility] Location of provider rendering services: practice address Location of patient: address on file Patient Identification confirmed using: Name, : Yes Telehealth method: video Patient verbally consented to treatment: Yes Patient verbally consented to billing insurance company: Yes Patient informed of any privacy concerns related to visit: Yes Minutes spent on Phone/Video with Pt.: 18 Assessment & Plan Assessment & Plan (1) Elevated liver enzymes: Code(s): R74.8 - Abnormal levels of other serum enzymes Category: Medical (2) Hyperlipemia: Code(s): E78.5 - Hyperlipidemia, unspecified Category: Medical (3) Low vitamin D level: Code(s): R7.89 - Other specified abnormal findings of blood chemistry Category: Medical (4) Low vitamin B12 level: Code(s): R7.89 - Other specified abnormal findings of blood chemistry Category: Medical Plan #Elevated LFTs likely secondary to fatty liver. Reviewed that control of metabolic factors is of paramount importance, strongly suggest starting statin. Patient also mentioned family history, so it even more important to start at least a moderate intensity statin. Plan: -start atorvastatin 20 mg once daily at bedtime -check LFTs and lipid panel in 3 months -also checking A1c to screen for diabetes #For low vitamin-D, will check celiac panel to ensure does not have underlying occult celiac disease, especially given her report of difficulty with getting her vitamin-D level up . Plan: -celiac serology ordered -vitamin-D, B12 and folate ordered, to be rechecked in 3 months Follow-up in a year unless has actionable labs Orders: Orders Hemoglobin A1c 3 Months R74.8 - Abnormal levels of other serum enzymes Immunoglobulin A 3 Months R7 - Other specified abnormal findings of blood chemistry Vitamin B12 and Folate 3 Months R789 - Other specified abnormal findings of blood chemistry Vitamin D 1,25 dihydroxy 3 Months R7.89 - Other specified abnormal findings of blood chemistry Liver Panel 3 Months R74.8 - Abnormal levels of other serum enzymes Lipid Panel 3 Months R74.8 - Abnormal levels of other serum enzymes Transglutaminase IgA 3 Months R7. - Other specified abnormal findings of blood chemistry Medications: New atorvastatin 20 mg PO BEDTIME 90 days 90 tabs 2RF Coding Level of Care Code Tele Est Pt Level 4 (67240) Diagnoses Elevated liver enzymes R74.8 Hyperlipemia E78.5 Low vitamin D level Low vitamin B12 level
== END 2023-12-30 16:27 | disposition home or self-care (01) ==
LOC: HO.HGI 15:28
PROVIDERS: Visit Provider Internal Medicine
DX: R74.8 Abnormal levels of other serum enzymes (principal); E78.5 Hyperlipidemia, unspecified; R79.89 Other specified abnormal findings of blood chemistry
CPT/HCPCS: 99214

== ENCOUNTER → 2023-12-30 15:28 | Outpatient (BNVA) | payer OTHER, SELFPAY | PROVIDERS: Visit Provider Internal Medicine ==

== ENCOUNTER 2024-06-17 08:35 | Outpatient (AMB) | payer OTHER, SELFPAY ==
[2024-06-17 08:53] VITALS: BP 118/78; PULSE 91; BMI 32.0
--- NOTE | 2024-06-17 08:53 | MHC.OFFVIS ---
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/ hypercholesterol/ triglycerides Intake Note: New patient dx hypercholesterolimia and triglycerides fx CAD feeling good Child Care Director Required: No Allergies shellfish derived Allergy (Mild, Verified 12/30/23 15:34) Gastrointestinal Upset tree nut Allergy (Verified 12/30/23 15:34) Anaphylaxis enviromental Allergy (Mild, Uncoded 12/30/23 15:34) Itchy Eyes, sneezing, wheezing peanuts Allergy (Mild, Uncoded 12/30/23 15:34) Anaphylaxis eggs Allergy (Unknown, Uncoded 12/30/23 15:34) Gastrointestinal Upset Medication List - Last Reconciled 06/17/24 by Jose L Burden MD albuterol sulfate 90 mcg/actuation 1 inh inhalation QID PRN atorvastatin 20 mg PO BEDTIME 90 days cetirizine (Zyrtec) 10 mg PO DAILY cholecalciferol (vitamin D3) 1,250 mcg PO QWEEK 90 days cyclobenzaprine 5 mg PO BEDTIME dextroamphetamine-amphetamine 10 mg (Adderall) 10 mg PO DAILY digital therapeutic,TIMOTHY device (Appsfire Digital Radha (migraine)) As directed epinephrine IM DAILY PRN fluticasone propion-salmeterol 250-50 mcg/dose (Advair Diskus) ea inhalation BID hydrocortisone acetate (Anusol-HC) 25 mg NM BEDTIME lidocaine HCl-hydrocortison ac 3 %-2.5 % (7 gram) 1 appl NM BEDTIME magnesium oxide 400 mg PO DAILY montelukast 10 mg PO DAILY multivit with min-folic acid 200 mcg (Women's Multivitamin Gummies) 1 tab PO DAILY phentermine 15 mg PO QAM triamcinolone acetonide 0.1% 1 appl topical TID HPI Comments Details: Thank you for referring Kait in cardiology 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 today for management of hyperlipidemia. 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 She denies any exertional chest pain but does have symptoms of exertional shortness of breath which she attributes to her asthma which is currently being managed through your office. Patient was noted to have significant mixed hyperlipidemia and she was worried because of her family history of cardiac disease for further evaluation. She was started on atorvastatin 20 mg but has not had any repeat blood work done on the same. She does have different noncardiac symptoms of migraine headaches, anxiety and depression. She also has sleep related issues. She denies any orthopnea, PND, leg edema. No prolonged palpitation irregular heartbeat. No lightheadedness, syncope. She does not participate in regular physical activity but is keen on starting the same. She is worried because of her father's history of needing aortic valve replacement in his 80s which led to a pacemaker placement. He also has history of coronary artery disease but no premature myocardial infarction or coronary revascularization as reported. She also has family history on the mother's side but no again family history of premature atherosclerotic events. [facility] Medical History Aneurysm Migraine headache without aura Hypersomnia Snoring Migraine Chronic headaches TMJ (temporomandibular joint disorder) Cervicalgia Hyperlipemia Anxiety Depression Sleep problem Asthma Surgical History Hx of colonoscopy H/O: hysterectomy [place] teeth extracted Family History Mother Aneurysm Hyperlipidemia Father Hyperlipidemia Skin cancer Atrial fibrillation Daughter Hyperlipidemia Son SVT (supraventricular tachycardia) Rncjv-Pdowsqyyv-Uzlom (WPW) syndrome Social History Are you a primary technical healthcare consultant to a significant other at home: No Do you presently have visiting nurse or other home services: No Alcohol intake: never Patient Tobacco Use Status: Never used Tobacco Review of Systems Const Denies chills, Denies daytime sleepiness, Denies fatigue, Denies fever(s), Denies frequent falls, Denies poor appetite, Denies snoring, Denies stops breathing during sleep, Denies weakness, Denies weight gain and Denies weight loss Eyes Denies loss of vision ENT Denies dizziness and Denies hearing loss Card Denies chest pain, Denies claudication, Denies leg edema, Denies lightheadedness, Denies palpitations, Denies dyspnea, Denies dyspnea on exertion and Denies orthopnea Resp Denies cough, Denies excessive phlegm production, Denies dyspnea, Denies dyspnea on exertion, Denies snoring and Denies wheezing GI Denies abdominal pain, Denies hematochezia, Denies change in bowel habits, Denies nausea and Denies vomiting Denies urinary frequency and Denies dysuria Musc Denies arthralgias, Denies muscle weakness, Denies numbness and Denies other (frequent falls) Skin/Breast Denies nail changes and Denies rash Neuro Denies Abnormal speech present, Denies dizziness, Denies frequent falls, Denies loss of vision, Denies memory loss, Denies numbness and Denies weakness Psych Denies depression and Denies memory loss Endo Denies fatigue and Denies palpitations Kam/Lymph Reports easy bruising and Reports other (anemia) Aller/Immun Denies wheezing Physical Exam Vital Signs: Last Vital Signs Pulse 91 06/17/24 08:53 BP 118/78 06/17/24 08:53 BMI result Body Mass Index 32.0 Const General: cooperative, comfortable, no acute distress, alert, awake and Physically active Nutritional Appearance: overweight Orientation/consciousness: patient oriented x3 Limitations: no limitations HEENT Head: Yes normocephalic and Yes atraumatic Neck Neck: Yes trachea midline, Yes supple and Yes no JVD Carotids: no bruits Resp Effort & Inspection: normal respiratory effort Auscultation: clear to auscultation bilaterally Cardio Jugular venous distension: no JVD Rate: regular rate Rhythm: regular rhythm Heart sounds: S1 normal heart sound present, S2 normal heart sound present, no click, no gallops, no murmurs and no rubs GI Auscultation: normal bowel sounds Skin General skin exam: no rashes or lesions noted Neuro General: patient oriented x3 and no focal motor deficits Speech: No Abnormal speech present Extrem General: Yes no clubbing, cyanosis or edema Office Procedures EKG Details: EKG shows normal sinus rhythm with normal EKG 40940-Ebeprvseqthwetkzd, Complete Assessment & Plan Assessment & Plan (1) Hyperlipemia: Code(s): E78.5 - Hyperlipidemia, unspecified Category: Medical Plan: Patient was mixed hyperlipidemia with family history for atherosclerotic although no premature atherosclerotic events noted. He was started on statin therapy already. We discussed about probably considering further evaluation for presence of atherosclerotic disease and I think coronary calcium score is well validated test to further assess for presence of atherosclerosis as that may intensify medical therapy. Discussed the risk stratification 2 with coronary calcium score and prognostication. She is willing to pursue the same. Will guide further treatment based on the findings of the coronary calcium score. Also suggest repeat lipid panel along with CRP as well as apolipoprotein B as well as lipoprotein a to guide further lipid therapy. She is agreeable. This will be performed in near future. I have encouraged her to participate in more aggressive lifestyle modification with regular physical activity and weight loss program. She understands and agrees. (2) SOB (shortness of breath): Code(s): R06.02 - Shortness of breath Plan: Shortness of breath exertion appears to be more likely pulmonary in nature related to her asthma and possibly restrictive pulmonary defect and deconditioning. Encouraged to increase activity level as above. Will obtain echocardiogram to rule out any structural heart issues including possibility of pulmonary hypertension. She understands agrees. Will follow up in the clinic in 1 year's time, sooner p.r.n.. Thank you for allowing me to partake in his care Orders: Orders Liver Panel Today E78.5 - Hyperlipidemia, unspecified CT Coronary Calcium Score 1 Week E78.5 - Hyperlipidemia, unspecified Lipid Panel Today E78.5 - Hyperlipidemia, unspecified CRP High Sensitivity Today E78.5 - Hyperlipidemia, unspecified Lipoprotein A Today E78.5 - Hyperlipidemia, unspecified Apolipoprotein B Today E78.5 - Hyperlipidemia, unspecified CA echo transthoracic complete Today R06.02 - Shortness of breath Coding Level of Care Code New Pt Level 4 (19782) Complex EM visit Add On G2211 Diagnoses Hyperlipemia E78.5 SOB (shortness of breath) R06.02 CPT Codes EKG - CPT: 01397-Izsdjaaktcoaupxyb, Complete ([id number])
--- OUTSIDE RECORDS SUMMARY | 2024-06-17 08:55 | XMS_ITS ---
Author Organization [facility] ame Address [address] [place] [address] Care Team Providers Care Carbon Grinder Name Role Phone Charity Cook Primary Care Provider Sweta Valle Unavailable [phone] REASON FOR VISIT CPE- CE, imms: due covid - MIIS checked, ST, ADHD:, PHQ9:, HCP:, PAP: s/p hysterectomy, MAMMO: LAst07/12/22- due, COLONOSCOPY: Last 05/03/22- rpt in 7- 10yrs, HEARING SCREEN:, MAITE: Medications Medication SIG (Take, Route, Frequency, Duration) Notes Start Date End Date Status Clobetasol Propionate 0.05 % 1 application Externally Twice a day for 30 days 02/26/2024 Active Phentermine HCl 15 MG 1 cap(s) orally once a day (in the morning) for 30 days 11/20/2023 Not-Taking Advair Diskus 250-50 MCG/ACT 1 INH inhaled 2 times a day for 30 days Active Phentermine HCl 15 MG 1 capsule Orally Once a day for 60 days 02/28/2024 Active Amphetamine-Dextroa mphetamine 10 MG 1 tab(s) orally 2 times a day for 60 days DX ADHD 02/28/2024 Active Clindamycin Phos-Benzoyl Perox 1.2-5 % 1 application after washing in the evening Externally Once a day for 30 days 02/05/2024 Active EpiPen 2-Kory 0.3 MG/0.3ML as directed intramuscularly once prn for 1 day 02/07/2022 Active Montelukast Sodium 10 MG 1 tab(s) orally once a day for 90 days 05/03/2023 Active Albuterol Sulfate HFA 2 PUFFS INHALED QID PRN for 30 DAYS Active Triamcinolone Acetonide 0.1 % 1 ulisses applied topically 3 times a day for 30 day(s) 02/07/2022 Active Atorvastatin Calcium 20 MG 1 tablet Orally Once a day Active Zoo Friends Multi Gummies 1 QD GUMMI MULTI and SANDER PMS GUMMI *Please review and pick correct strength-formula tion from Medispan options. If intended option is not shown, discontinue and re-order from Quick Search* Active ZyrTEC Allergy 10 MG 1 tab(s) orally once a day at night- Active Vitamin D (Cholecalciferol) 25 MCG (1000 UT) 1 tablet QD Active Magnesium 1 PO QD Active Encounters Encounter Location Date Provider Diagnosis [facility] [address] [place] [address] 05/08/2024 Sweta Valle No Show or Late Cancel NS.LTCX Assessments Encounter Date Diagnosis (ICD Code) Assessment Notes Treatment Notes Treatment Clinical Notes Section Notes 05/08/2024 No Show or Late Cancel (ICD-10 - NS.LTCX) 05/08/2024 Other Plan Of Treatment Next Appt Details Provider Name:Sweta Valle, 07/02/2024 04:00:00 PM, [address] [place], [address], Procedure Notes * Category Sub-Category Detail Notes Hearing Screen Deferred * Vision Screening Deferred * Progress Notes * LASHONDA ARREGUINDOB: [birth year] (49 yo F)Acc No.[id number]:05/08/2024 Progress Notes Patient:?LASHONDA ARREGUIN Provider:?Sweta Valle MD :1975???Age:49 Y???Sex:Female D ate:05/08/2024 Address:[address] [place] [address] [id number] Pcp:Charity Cook Subjective: * Chief Complaints: * ???CPE- CEimms: due covid - MIIS checked, STADHD:PHQ9:HCP:PAP: s/p hysterectomyMAMMO: LAst 07/12/22- dueCOLONOSCOPY: Last 05/03/22- rpt in 7-10yrsHEARING SCREEN:MAITE: * Medical History:? * Surgical History:? * Hospitalization/Major Diagno stic Procedure:? * Medications:?TakingAtorvasta tin Calcium 20 MG Tablet 1 tablet Orally Once a day Vitamin D (Cholecalciferol) 25 MCG (1000 UT) Tablet 1 tablet QD Magnesium TABLET 1 PO QD Zoo Friends Multi Gummies 1 QD , Notes to Pharmacist: GUMMI MULTI and SANDER PMS GUMMI *Please review and pick correct strength-formulation from Swypean options. If intended option is not shown, discontinue and re-order from Quick Search*ZyrTEC Allergy 10 MG Tablet 1 tab(s) orally once a day , Notes to Pharmacist: at night-Albuterol Sulfate HFA 2 PUFFS INHALED QID PRN Triamcinolone Acetonide 0.1 % Cream 1 ulisses applied topically 3 times a day EpiPen 2-Kory 0.3 MG/0.3ML Solution Auto-injector as directed intramuscularly once prn Montelukast Sodium 10 MG Tablet 1 tab(s) orally once a day Clindamycin Phos-Benzoyl Perox 1.2-5 % Gel 1 application after washing in the evening Externally Once a day Clobetasol Propionate 0.05 % Ointment 1 application Externally Twice a day Phentermine HCl 15 MG Capsule 1 capsule Orally Once a day Amphetamine-Dextroamphetamine 10 MG Tablet 1 tab(s) orally 2 times a day , Notes to Pharmacist: DX ADHDAdvair Diskus 250-50 MCG/ACT Aerosol Powder Breath Activated 1 INH inhaled 2 times a day Taking Atorvastatin Calcium 20 MG Tablet 1 tablet Orally Once a day Taking Vitamin D (Cholecalciferol) 25 MCG (1000 UT) Tablet 1 tablet QD Taking Magnesium TABLET 1 PO QD Taking Zoo Friends Multi Gummies 1 QD , Notes to Pharmacist: GUMMI MULTI and SANDER PMS GUMMI *Please review and pick correct strength-formulation from Mind [employer] options. If intended option is not shown, discontinue and re-order from Quick Search*Taking ZyrTEC Allergy 10 MG Tablet 1 tab(s) orally once a day , Notes to Pharmacist: at night-Taking Albuterol Sulfate HFA 2 PUFFS INHALED QID PRN Taking Triamcinolone Acetonide 0.1 % Cream 1 ulisses applied topically 3 times a day Taking EpiPen 2-Kory 0.3 MG/0.3ML Solution Auto-injector as directed intramuscularly once prn Taking Montelukast Sodium 10 MG Tablet 1 tab(s) orally once a day Taking Clindamycin Phos-Benzoyl Perox 1.2-5 % Gel 1 application after washing in the evening Externally Once a day Taking Clobetasol Propionate 0.05 % Ointment 1 application Externally Twice a day Taking Phentermine HCl 15 MG Capsule 1 capsule Orally Once a day Taking Amphetamine-Dextroamphetamine 10 MG Tablet 1 tab(s) orally 2 times a day , Notes to Pharmacist: DX ADHDTaking Advair Diskus 250-50 MCG/ACT Aerosol Powder Breath Activated 1 INH inhaled 2 times a day Not-Taking/PRNPhentermine HCl 15 MG Capsule 1 cap(s) orally once a day (in the morning) Not-Taking/PRN Phentermine HCl 15 MG Capsule 1 cap(s) orally once a day (in the morning) Objective: * Vitals:? Assessment: * Assessment: 1.?No Show or Late Cancel - NS.LTCX (Primary)??? Plan: * Treatment: * Procedures:?Hearing Screen:?Deferred?*.?Vision Screening:?Deferred?*.? * Procedure Codes:? * Preventive Medicine:? ??Counseling:?Diet?.?Injury prevention?.?Exercise?.?Sexual practices?.?Domestic violence?.?Sunscreen?.?Health?discuss perimenopausal signs and symptoms.?Smoking?.?Living will?.?Seatbelts?. Bike helmet?.?Guns in home?.?Alcohol use?.?Vaping?.?Cancer Screening?.?Texting while Driving?.?Alcohol and drugs?.?Calcium supplementation?.?Breast self exam after periods?.?no risk factors identified. * Images: Billing Information: * Visit Code:? * Procedure Codes:? Care Plan Details* * Sign off status: Completed true * Provider:?Sweta Valle MD Date:?05/08/20 24 Generated for Jazmine zhou/Sunshine/Edgaritting on:?06/17/2024 08:55 AM EST
--- OUTSIDE RECORDS SUMMARY | 2024-06-17 08:56 | XMS_ITS ---
Author Organization [facility] ame Address [address] [place] [address] Care Team Providers Care Benzene Operator Name Role Phone Charity Cook Primary Care Provider [phone] Sweta Valle Unavailable [phone] REASON FOR VISIT rx wjiwvme-Mbxrokgcvrz-Jvmkpviysfmfitnat 10 MG Tablet Medications Medication SIG (Take, Route, Frequency, Duration) Notes Start Date End Date Status Amphetamine-Dextroampheta mine 10 MG 1 tab(s) orally 2 times a day for 90 days DX ADHD 05/08/2024 Active Encounters Encounter Location Date Provider Diagnosis [facility] [address] [place] [address] 05/08/2024 Charity Cook ADHD, unspecified type F90.9 Assessments Encounter Date Diagnosis (ICD Code) Assessment Notes Treatment Notes Treatment Clinical Notes Section Notes 05/08/2024 ADHD, unspecified type (ICD-10 - F90.9) Plan Of Treatment Medication Medication Name Sig Start Date Stop Date Notes Amphetamine-Dextroamphetamin e 10 MG 1 tab(s) orally 2 times a day for 90 days 05/08/2024 DX ADHD Next Appt Details Provider Name:Sweta Valle, 07/02/2024 04:00:00 PM, [address] [place], [address], Progress Notes * LASHONDA ARREGUINDOB: [birth year] (49 yo F)Acc No.[id number]:05/08/2024 Patient:?LASHONDA ARREGUIN :1975???Age:49 Y???Sex:Female Address:[address] [place] [address], [place], [address] * Refills? Refill Amphetamine-Dextroamphetamine Tablet, 10 MG, orally, 180 Tablet, 1 tab(s), 2 times a day, 90 days, Refills=0 * true * Date:? Generated for Jazmine zhou/Sunshine/Edgaritting on:?06/17/2024 08:55 AM EST
--- OUTSIDE RECORDS SUMMARY | 2024-06-17 08:56 | XMS_ITS ---
Author Organization [facility] ame Address [address] [place] [address] Care Team Providers Care Mold Making Supervisor Name Role Phone Charity Cook Primary Care Provider Sweta Valle Unavailable [phone] Yelena Longo Unavailable [phone] REASON FOR VISIT CPE Encounters Encounter Location Date Provider Diagnosis [facility] [address] [place] [address] 05/08/2024 Yelena Longo Plan Of Treatment Next Appt Details Provider Name:Sweta Valle, 07/02/2024 04:00:00 PM, [address] [place], [address], Progress Notes * LASHONDA ARREGUINDOB: [birth year] (49 yo F)Acc No.[id number]:05/08/2024 Progress Notes Patient:?LASHONDA ARREGUIN Appointment Provider:?Jesús Zavala :1975???Age:49 Y???Sex:Female S upervising Provider:Charity Cook MD Date:05/08/2024 ?CHN#:[id number] Address:[facility] [address] [place] Pcp:Charity Cook Subjective: * Chief Complaints: * ???1. CPE. * Medical History:? Objective: * Vitals:? Assessment: Plan: * Treatment: * Images: Billing Information: * Visit Code:? * Procedure Codes:? Care Plan Details* * Electronic signature of Suad Cook MD on 06/17/2024 at 08:56 AM EST Sign off status: Pending * Appointment Provider:?Jesús Zavala Date:?05/08/2024 Generated for Printing/Faxing/eTransmitting on:?06/17/2024 08:56 AM EST
== END 2024-06-17 09:31 | disposition home or self-care (01) ==
PROVIDERS: Visit Provider Internal Medicine Cardiovascular Disease
DX: E78.5 Hyperlipidemia, unspecified (principal); R06.02 Shortness of breath
CPT/HCPCS: 93010; 99204

== ENCOUNTER → 2024-06-17 08:35 | Outpatient (BNVA) | payer OTHER, SELFPAY | PROVIDERS: Visit Provider Internal Medicine Cardiovascular Disease | DX: E78.5 Hyperlipidemia, unspecified (principal); R06.02 Shortness of breath | CPT/HCPCS: 93005 ==

== ENCOUNTER → 2024-06-30 07:59 | Outpatient (BNV) | payer OTHER, SELFPAY | PROVIDERS: Visit Provider Internal Medicine Cardiovascular Disease | DX: I51.89 Other ill-defined heart diseases (principal) | CPT/HCPCS: 93306 ==

== ENCOUNTER 2024-07-08 08:55 | Outpatient (REF) | payer OTHER, SELFPAY ==
--- OUTSIDE RECORDS SUMMARY | 2024-07-08 09:05 | XMS_ITS ---
Author Organization [facility] ame Address [address] [place] [address] Care Team Providers Care Harnessmaker Apprentice Name Role Phone Charity Cook Primary Care Provider Sweta Valle Unavailable [phone] REASON FOR VISIT Derm ref Encounters Encounter Location Date Provider Diagnosis [facility] [address] [place] [address] 07/03/2024 Sweta Valle Plan Of Treatment Next Appt Details Provider Name:Sweta Valle, 09/30/2024 05:45:00 PM, [address] [place], [address], Progress Notes * LASHONDA ARREGUINDOB: [birth year] (49 yo F)Acc No.[id number]:07/03/2024 Patient:?LASHONDA ARREGUIN :1975???Age:49 Y???Sex:Female Address:[address], [address] * true * Date:? Generated for Printi winnie/Sunshine/eTransmitting on:?07/08/2024 09:05 AM EST
[2024-07-08 18:33] LABS: Alanine Aminotransferase 45 U/L (0-31); Albumin Level 4.3 g/dL (3.5-5.0); Alkaline Phosphatase 70 U/L (39-117); Aspartate Amino Transferase 38 U/L (5-31); Bilirubin Direct 0.3 mg/dL (0.0-0.5); Bilirubin Total 0.8 mg/dL (0.0-1.0); Cholesterol 143 mg/dL (<200); HDL Cholesterol 56 mg/dL (>40); LDL Cholesterol Calculated 62 mg/dL (<100); Triglycerides 126 mg/dL (<150)
[2024-07-08 18:37] LABS: Alanine Aminotransferase 44 U/L (0-31); Albumin Level 4.3 g/dL (3.5-5.0); Alkaline Phosphatase 70 U/L (39-117); Anion Gap 12 (12-20); Aspartate Amino Transferase 37 U/L (5-31); Bilirubin Total 0.8 mg/dL (0.0-1.0); Blood Urea Nitrogen 18 mg/dL (9-16); Calcium 9.2 mg/dL (8.4-10.2); Carbon Dioxide 24 mmol/L (22-29); Chloride 105 mmol/L (96-108); Estimated Glomerular Filt Rate > 60; Glucose Random 86 mg/dL (60-115); Phosphorus 3.7 mg/dL (2.7-4.5); Sodium 137 mmol/L (135-145)
[2024-07-08 18:53] LABS: Vitamin D 25-OH Total 48.6 ng/mL (>30)
[2024-07-08 19:01] LABS: Parathyroid Hormone Intact 68.1 pg/mL (8.7-77.1)
[2024-07-08 19:17] LABS: Cortisol Random 7.8 ug/dL
[2024-07-08 19:30] LABS: Folate 13.5 ng/mL (> or = 4.0); Vitamin B12 676 pg/mL (200-900)
[2024-07-09 07:15] LABS: Estimated Average Glucose 111 mg/dL; Hemoglobin A1C 136.2892 umol/L; Hemoglobin A1c % 5.5 % (<6.0); Total Hemoglobin (HGBA1C) 3711.5693 umol/L
[2024-07-09 22:03] LABS: Transglutaminase IgA <1.0 U/mL
[2024-07-11 22:43] LABS: Immunoglobulin A 320 mg/dL (47-310)
[2024-07-13 09:08] LABS: CRP High Sensitivity 2.4 mg/L
[2024-07-13 22:53] LABS: VITAMIN D (1,25 OH) D3 23 pg/mL; Vit D (1,25-Dihydroxy) Total 23 pg/mL (18-72); Vitamin D (1,25 OH) D2 <8 pg/mL
[2024-07-14 13:47] LABS: Lipoprotein A 36 nmol/L (<75)
[2024-07-15 05:43] LABS: Apolipoprotein B 63 mg/dL (<90)
== END 2024-07-08 08:56 | disposition home or self-care (01) ==
LOC: HO.HKASLDS 08:55
PROVIDERS: Internal Medicine; PCP Family Medicine; Visit Provider Internal Medicine Cardiovascular Disease
DX: Z00.00 Encounter for general adult medical examination without abnormal findings (principal); E78.5 Hyperlipidemia, unspecified; R79.89 Other specified abnormal findings of blood chemistry; R74.8 Abnormal levels of other serum enzymes; E27.49 Other adrenocortical insufficiency; E55.9 Vitamin D deficiency, unspecified
CPT/HCPCS: 36415; 80053; 80061; 80076; 82172; 82248; 82306; 82533; 82607; 82652; 82746; 82784; 83036; 83695; 83970; 84100; 86141; 86364

== ENCOUNTER 2024-07-30 07:39 | Outpatient (REF) | payer OTHER, SELFPAY ==
--- NOTE | ~2024-07-30 | MM_ITS ---
EXAMINATION: MM SCREENING DIGITAL BREAST TOMOSYNTHESIS, BILATERAL CLINICAL INFORMATION: Screening. Asymptomatic. COMPARISON: Mammography: Comparison is made with available priors TECHNIQUE: Digital breast mammography with tomosynthesis is performed in both the craniocaudal and mediolateral oblique views along with computer-aided detection (CAD). FINDINGS: The breasts are heterogeneously dense, which may obscure small masses (ACR BI-RADS breast composition Category c). There are no significant masses, abnormal calcifications, or other abnormalities. MM/MM tomosynthesis screening BI IMPRESSION: No mammographic evidence of malignancy. ASSESSMENT: BI-RADS BI-RADS 1 - Negative RECOMMENDATION: Routine annual mammography screening. 1 year F/U This examination should not preclude the clinical evaluation of a suspicious palpable abnormality. This patient's information was entered into a reminder system with a target due date for their next mammogram. Electronically signed by: Alejandrina Nation DO 07/30/2024 10:13 AM EDT
--- NOTE | ~2024-07-30 | MM_ITS ---
EXAMINATION: DXA BONE DENSITY AXIAL HISTORY: Estrogen deficiency TECHNIQUE: [employer] Dual energy absorptiometry (DEXA) of the lumbar spine, total left hip, and femoral neck was performed. COMPARISON: There are no prior studies for comparison. FINDINGS: The bone mineral density of the lumbar spine is 1.102 with a T-score of -0.7, and a Z-score of -0.9. The bone mineral density of the left total hip is 1.021 with a T-score of 0.1, and a Z-score of 0.1. The bone mineral density of the left femoral neck is 0.889 with a T-score of -1.1, and a Z-score of -0.7. FRACTURE RISK: The FRAX index suggests a risk of major osteoporotic fracture of 2.1%, and of hip fracture 0.1%. MM/XR DEXA axial skeleton IMPRESSION: Based on bone mineral density, and according to World Health Organization (WHO) criteria, the diagnosis is consistent with osteopenia. All bone density values are in grams per centimeter squared (g/cm2). Statistically, 68% of repeat scans fall within 1 SD (+/- 0.010 g/cm2 for AP spine L1-L4) and 1 SD (+/- 0.012 g/cm2 for femur total) FRAX is a trademark of the [employer] [facility] Metabolic Bone Disease, a World Health Organization (WHO) Collaborating Center. Electronically signed by: John Arreola MD 07/30/2024 08:46 AM EDT
--- OUTSIDE RECORDS SUMMARY | 2024-07-30 07:43 | XMS_ITS ---
Author Organization [facility] ame Address [address] [place] [address] Care Team Providers Care Zinc Furnace Charger Name Role Phone Charity Cook Primary Care Provider Sweta Valle Unavailable [phone] REASON FOR VISIT Notes Encounters Encounter Location Date Provider Diagnosis [facility] [address] [place] [address] 07/02/2024 Sewta Valle Plan Of Treatment Next Appt Details Provider Name:Swtea Valle, 09/30/2024 05:45:00 PM, [address] [place], [address], Progress Notes * LASHONDA ARREGUINDOB: [birth year] (49 yo F)Acc No.[id number]:07/02/2024 Patient:?LASHONDA ARREGUIN :1975???Age:49 Y???Sex:Female Address:[address], [address] * true * Date:? Generated for Printi ng/Faxing/eTransmitting on:?07/30/2024 07:43 AM EDT
--- OUTSIDE RECORDS SUMMARY | 2024-07-30 07:44 | XMS_ITS ---
[facility] Address [address] [place] [address] Care Team Providers Care Rn Plasma Center Name Role Phone Charity Cook Primary Care Provider [phone] Sweta Valle Unavailable [phone] REASON FOR VISIT clinda+benzoyl refill request Medications Medication SIG (Take, Route, Frequency, Duration) Notes Start Date End Date Status Clindamycin Phos-Benzoyl Perox 1.2-5 % 1 application after washing in the evening Externally Once a day for 90 days 02/05/2024 Active Encounters Encounter Location Date Provider Diagnosis [facility] [address] [place] [address] 07/17/2024 Sweta Valle Acne unspecified L70 .9 Assessments Encounter Date Diagnosis (ICD Code) Assessment Notes Treatment Notes Treatment Clinical Notes Section Notes 07/17/2024 Acne unspecified (ICD-10 - L70.9) Plan Of Treatment Medication Medication Name Sig Start Date Stop Date Notes Clindamycin Phos-Benzoyl Perox 1.2-5 % 1 application after washing in the evening Externally Once a day for 90 days 02/05/2024 Next Appt Details Provider Name:Sweta Valle, 09/30/2024 05:45:00 PM, [address] [place], [address], Progress Notes * LASHONDA ARREGUINDOB: [birth year] (49 yo F)Acc No.[id number]:07/17/2024 Patient:?LASHONDA ARREGUIN :1975???Age:49 Y???Sex:Female Address:[address] [place] [address], [place], [address] * Refills? Refill Clindamycin Phos-Benzoyl Perox Gel, 1.2-5 %, Externally, 90, 1 application after washing in the evening, Once a day, 90 days, Refills=1 * true * Date:? Generated for Jazmine zhou/Sunshine/eTransmitting on:?07/30/2024 07:43 AM EDT
--- OUTSIDE RECORDS SUMMARY | 2024-07-30 07:44 | XMS_ITS ---
Author Organization [facility] ame Address [address] [place] [address] Care Team Providers Care Automotive Parts Advisor Name Role Phone Charity Cook Primary Care Provider Sweta Valle Unavailable [phone] REASON FOR VISIT Derm ref Encounters Encounter Location Date Provider Diagnosis [facility] [address] [place] [address] 07/03/2024 Sweta Valle Plan Of Treatment Next Appt Details Provider Name:Sweta Valle, 09/30/2024 05:45:00 PM, [address] [place], [address], Progress Notes * LASHONDA ARREGUINDOB: [birth year] (49 yo F)Acc No.[id number]:07/03/2024 Patient:?LASHONDA ARREGUIN :1975???Age:49 Y???Sex:Female Address:[address], [address] * true * Date:? Generated for Printi ng/Faedwardg/eTransmitting on:?07/30/2024 07:43 AM EDT
== END 2024-07-30 07:40 | disposition home or self-care (01) ==
LOC: HO.MAMMO 07:39
PROVIDERS: PCP Family Medicine; Visit Provider Family Medicine
DX: Z12.31 Encounter for screening mammogram for malignant neoplasm of breast (principal); Z13.820 Encounter for screening for osteoporosis; Z78.0 Asymptomatic menopausal state
CPT/HCPCS: 77063; 77067; 77080

== ENCOUNTER → 2024-07-30 08:00 | Outpatient (BNV) | payer OTHER, SELFPAY | PROVIDERS: PCP Family Medicine; Visit Provider Radiology Diagnostic Radiology | DX: E28.39 Other primary ovarian failure (principal); Z12.31 Encounter for screening mammogram for malignant neoplasm of breast | CPT/HCPCS: 77063; 77067; 77080 ==

== ENCOUNTER 2024-12-30 12:47 | Outpatient (AMB) | payer OTHER, SELFPAY ==
[2024-12-30 12:56] VITALS: BP 123/70; PULSE 94; BMI 31.7
--- NOTE | 2024-12-30 12:56 | MHC.OFFVIS ---
Vital Signs 12/30/24 12:56 Height 5 ft 3.75 in Weight 182 lb 15.739 oz BMI 31.7 BP 123/70 Blood Pressure Location Lt brachial Position Sitting Pulse 94 Intake Visit Reasons: 1 year follow up ARIAN Intake Note: Kait presents in the office as a 1 year follow up. CC: Bouts of nausea here and there and constipation. States that constipation is not a new issue. International Account Manager Required: No Allergies shellfish derived Allergy (Mild, Verified 12/30/24 12:58) Gastrointestinal Upset tree nut Allergy (Verified 12/30/24 12:58) Anaphylaxis enviromental Allergy (Mild, Uncoded 12/30/24 12:58) Itchy Eyes, sneezing, wheezing peanuts Allergy (Mild, Uncoded 12/30/24 12:58) Anaphylaxis eggs Allergy (Unknown, Uncoded 12/30/24 12:58) Gastrointestinal Upset HPI Comments Details: This is a 47-year-old female presents to the office today for follow up for rectal bleeding and fatty liver. Initial visit 03/23/2022: Patient states that for the last few years, ordered of, she has noticed blood streaked on stool and on wiping. This is often associated with hard stool, although has sometimes seen and with the soft stool as well. Does not have any abdominal pain, nausea, vomiting, diarrhea, melena with this. Denies any unintentional weight loss. Family history is pertinent for polyps in father. Patient is unsure of his age of diagnosis. In addition, has been told she has fatty liver disease for the last few years. Most recent LFTs have significantly elevated transaminases with ALT to ALT ratio 2-1 consistent with [place]. Risk factors include obesity, hyperlipidemia, family history of diabetes. 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 Surgical history: Hysterectomy 2020 Colonoscopy 05/03/2022: 6 mm hyperplastic polyp in the sigmoid colon. Adequate preparation. Large internal hemorrhoids. 05/09/23: Patient reports that she continues to see intermittent red blood, but obviously is reassured that this is likely from hemorrhoids as initially expected. Results of recent workup for elevated transaminases also reviewed. Ultrasound consistent with fatty liver. In addition, labs show normal INR, mildly high ferritin with normal saturation, normal A1c, LARS positive but anti liver kidney and anti smooth muscle antibody negative. Patient is not immune to hepatitis-A 08/31/22: Continues with intermittent BRBPR even without straining. Occurs at least once a week. Otherwise no acute GI complaints. LFTs from Jun reviewed transaminases more or less unchanged. Pt has not been able to take Vit E regularly. 11/28/22: Continues with intermittent BRBPR despite taking anusol suppositories. However on further review pt did not complete 5-7 day course but instead took those sporadically PRN. Has been taking fiber. Took Vit E x 3 months. Labs reviewed and LFts continue to be elevated. However reassuringly Fib 4 is low. 12/30/23: Here for video televisit. No acute GI issues. Has been working on her weight and now weighs 185# Labs reviewed, persistent elevation of LFTs, as well as abnormal cholesterol. Has not been started on her statin yet. Vitamin-D remains exceedingly low despite high-dose supplementation. Patient says that she has always had issues with absorbing vitamin-D . Recently started on magnesium and B complex for headaches by Neurology. Previous magnesium supplement would give her diarrhea, but now switched to magnesium glycinate. 12/30/24: Here for 1 year follow up. Reports increased nausea rosa at night which goes away with tums and occ omeprazole. Assoc with abd discomfort. Sometimes has loose stools. Unsure if post prandial since meal times are variable. Also taking a new multivitamin unsure of Herminio and Mg content. [facility] Medical History Aneurysm Migraine headache without aura Hypersomnia Snoring Migraine Chronic headaches TMJ (temporomandibular joint disorder) Cervicalgia Hyperlipemia Anxiety Depression Sleep problem Asthma Surgical History Hx of colonoscopy H/O: hysterectomy [place] teeth extracted Family History Mother Aneurysm Hyperlipidemia Father Hyperlipidemia Skin cancer Atrial fibrillation Daughter Hyperlipidemia Son SVT (supraventricular tachycardia) Kvanp-Wpvznaowo-Cbvcz (WPW) syndrome Social History Are you a primary plant care worker to a significant other at home: No Do you presently have visiting nurse or other home services: No Alcohol intake: never Patient Tobacco Use Status: Never used Tobacco Review of Systems Const All systems reviewed & are unremarkable except as noted in HPI and below Physical Exam Exam Exam: No apparent distress Nonicteric Abdomen soft, nondistended, mild tenderness in RUQ and epigastrium Alert and oriented x3, normal gait Vital Signs: Last Vital Signs Pulse 94 12/30/24 12:56 BP 123/70 12/30/24 12:56 BMI result Body Mass Index 31.7 Assessment & Plan Assessment & Plan (1) Dyspepsia: Code(s): R10.13 - Epigastric pain Category: Medical (2) Nausea & vomiting: Code(s): R11.2 - Nausea with vomiting, unspecified Category: Medical (3) Elevated liver enzymes: Code(s): R74.8 - Abnormal levels of other serum enzymes Category: Medical Plan Ddx includes symptomatic gallstones, PUD, gastritis, esophagitis, reflux, med side effect. Plan: - LFTs - US abd and barium swallow - trial of omeprazole 20 x 4-8 weeks - follow up 2 months Orders: Orders Liver Panel Today R11.2 - Nausea with vomiting, unspecified FL barium swallow Today R11.2 - Nausea with vomiting, unspecified US abdomen complete Today R10.13 - Epigastric pain, R11.2 - Nausea with vomiting, unspecified Complete Blood Count no Diff Today R11.2 - Nausea with vomiting, unspecified Medications: New omeprazole 20 mg PO DAILY 90 caps 0RF Coding Level of Care Code Est Pt Level 4 (11940) Diagnoses Dyspepsia R10.13 Nausea & vomiting R11.2 Elevated liver enzymes R74.8
--- OUTSIDE RECORDS SUMMARY | 2024-12-30 13:17 | XMS_ITS | Encounter Summary ---
Author Organization [facility] Address [address] [facility] [address] [place] [phone] Phone Care Team Providers Care Color Printer Operator Name Role Phone Isabel Chan Gordo MENESES Unavailable Susie Kirk MD Unavailable [phone] Charity Cook MD Primary Care Provider + Charity Cook MD Unavailable [phone] Encounter Details Date Type Department Care Team (Late st Contact Info) Description 09/04/2020 Prep for Surgery [facility] Obstetrics - Virtual Department [address] [place] [address] Ashleigh Holland MD [address] [facility] [address] [place] [address] [email or web address] Menorrhagia with irregular cycle (Primary Dx); Pre-operative exam Social History Tobacco Use Types Packs/Day Years Used Date Smoking Tobacco: Never Smokeless Tobacco: Never Alcohol Use Standard Drinks/Week Comments Yes 0 (1 standard drink = 0.6 oz pur e alcohol) rare Comments No Sex and Gender Information Value Date Recorded Sex Assigned at Not on file Legal Sex Female 9:30 PM EDT Gender Identity Not on file Sexual Orientation Not on file Occupation Industry Job Start Date Job End Date Working Not on file Not on file Not on file documented as of this encounter Plan of Treatment Not on file documented as of this encounter Results * CBC (09/26/2020 12:11 PM EDT) WBC 10.89 4.00 - 11.00 K/uL [facility] RBC 4.63 3.72 - 5.30 M/uL [facility] HGB 14.7 10.6 - 15.5 g/dL [facility] HCT 43.1 32.0 - 45.0 % [facility] PLT 336 140 - 430 K/uL [facility] MCV 93.1 78.0 - 97.0 fL [facility] MCH 31.7 25.0 - 33.0 pg [facility] MCHC 34.1 32.0 - 36.0 g/dL [facility] RDW 11.9 11.0 - 16.0 % [facility] MPV 10.8 8.4 - 12.8 fl [facility] NRBC 0.00 0 /100 WBCs [facility] ABSOLUTE NRBC 0.00 0 K/uL [facility] Blood 09/26/2020 12:1 1 PM EDT 09/26/2020 12:20 PM EDT Ashleigh Holland MD LAB BLOOD ORDERABLES Final Result [address] [id number] * Type and Screen (ABO,Rh,Antibody Screen) (09/26/2020 12:11 PM EDT) ABO/Rh AB Positive [facility] Antibody Screen Negative [facility] Expiration Date of Sample 09/29/2020,2 359 [facility] Resulting Agency [facility] Blood 09/26/2020 12:1 1 PM EDT 09/26/2020 12:19 PM EDT us Ashleigh Holland MD BLOOD BANK TEST ORDERABLES Final Result [address] [address] documented in this encounter Visit Diagnoses Diagnosis Menorrhagia with irregular cycle- Primary Pre-operative exam Unspecified pre-operative examination documented in this encounter Additional Health Concerns Infection Onset Date Last Indicated Resolved Time CoV-Exposed Comment:From [facility] 04/20/2021 04/20/2021 05/05/2021 1:23 A M EST CoV-Exposed Comment:From [facility] 06/16/2021 06/16/2021 06/27/2021 1:22 A M EST CoV-Risk 06/20/2021 06/20/2021 06/30/2021 1:22 AM EST CoV-Exposed Comment:From [facility] 06/28/2021 06/28/2021 07/09/2021 1:22 A M EST CoV-Risk 09/28/2021 09/28/2021 09/28/2021 7:05 PM EDT COVID-19 09/28/2021 09/28/2021 10/19/2021 1:22 AM EDT documented as of this encounter Care Teams Color Printer Operator Relationship Specialty Start Date End Date Charity Cook MD [address] [place] [id number] [email or web address] PCP - General Family Medicine 01/28/18 Isabel Chan CNM [address] [place] [id number] Historical LMR Provider 03/07/17 2 Susie Kirk MD [address] [place] [address], [address] [place] [address] [email or web address] Historical LMR Provider 03/07/17 05/27/21 Charity Cook MD [address] [place] [id number] [email or web address] Insurance Assigned Provider 09/20/18 05/27/21 documented as of this encounter Additional Source Comments The information contained in this document represents components of the legal health record. It is not the complete legal health record.[facility]
--- OUTSIDE RECORDS SUMMARY | 2024-12-30 13:18 | XMS_ITS | Patient Health Record ---
Author Organization [facility] ame Address [address] [place] [address] Care Team Providers Care Clinical Trials Nurse Name Role Phone Charity Cook Primary Care Provider [phone] Sweta Valle Unavailable [phone] Yelena Longo Unavailable [phone] Basilio Suarez Unavailable [phone] Allergies Allergen (clinical drug ingredient) Drug/Non Drug Allergy documented on EMR Reaction Allergy Type Onset Date Status Tree Nuts Unknown Allergy Active Latex Latex Unknown Allergy Active Shellfish (FN) SHELLFISH (uncoded) Unknown Allergy Active Cantaloupe CANTALOUPE (uncoded) Unknown Allergy Active GREEN BEANS (uncoded) Unknown Allergy Active Fish derivative (substance) TUNA (uncoded) Unknown Allergy Active Crab CRAB (uncoded) Unknown Allergy Activ e EGG WHITES (uncoded) Unknown Allergy Active PEANUT (uncoded) Anaphylactic shock Allergy Active Reason For Referral Reason HLD, FMH heart disea se Diagnosis 1 Hypertriglyceridemia , essential (E78.1) Diagnosis 2 Hyperlipidemia, unsp ecified (E78.5) Referral Organization [facility] Referring Provider First Name Yelena Referring Provider Last Name Qing Referring Provider Speciality Family Pra ctice Referred Provider Kyle Archer Cardiol ogjayy Referred Provider Specialty Cardiology General Notes Sweta Roblero 01/19 08:24:01 AM > NO AUTH REQUIRED FOR BBA, Referral faxed to: [phone] Clinical Notes Provider Name: Jose Archer, Cardiology, Address1: [address], [facility], [facility], Zip: [place], [address], , Referral Priority Routine Reason atopic dermatitis [facility] Diagnosis 1 Atopic dermatitis, u nspecified (L20.9) Referral Organization [facility] Referring Provider First Name Sweta Referring Provider Last Name Valle Referring Provider Speciality Family Pra ctice Referred Provider Jonathan Russell(CLOSED L OCATION), Dermatology General Notes Sweta Roblero 06/20 01:19:51 PM > referral faxed to: [phone], Sweta Roblero 07/07/2024 08:17:41 AM >refaxed to: [phone] Clinical Notes Provider Name: Marci Looney, Provider ID Number: , Provider UPIN: , Provider NPI: , Provider Facility: , Provider Speciality: , Address1: [address] [place] [address], Address2: [facility], Zip: [place], [address], , Appt. Date/Time: , Referral Priority Routine Reason Allergy management Diagnosis 1 Allergic rhinitis, O ther (J30.89) Referral [facility] Referring Provider First Name Sweta Referring Provider Last Name Leonard Referring Provider [facility] ctice Referred Provider LESLEY MARTIN Referred Provider Specialty Allergy/Immu nology General Notes Sweta Roblero 10/18 10:13:28 AM > referral faxed to: [phone] Clinical Notes Provider Name: LESLEY GUZMAN, Provider UPIN: grp npi [id number], Provider , Provider Speciality: Allergy/Immunology, Address1: [address] [place] [address], Address2: [facility], Zip: [place], [address], , Referral Priority Routine Reason [facility] Chiropractor f or neck pain Diagnosis 1 Pain Neck (M54.2) Referral Organization [facility] Referring Provider First Name Sweta Referring Provider Last Name Leonard Referring Provider Speciality Family Pra ctice Referred Provider Specialty Chiropractor General Notes [address] [place] [address], phone: [phone], fax: [phone] Referral Priority Routine Medications Medication SIG (Take, Route, Frequency, Duration) Notes Start Date End Date Status Zepbound 2.5 MG/0.5ML 0.5 mL Subcutaneou s once a week for 90 days not started 10/14/2024 Active Nystatin-Triamcinolone 183942-3.1 UNIT/GM 1 application Externally Twice a day for 30 days 08/04/2024 Active Estradiol 0.0375 MG/24HR 1 patch to skin Transdermal Two times a Week for 90 days 08/04/2024 Active Albuterol Sulfate HFA 108 (90 Base) MCG/ACT 2 PUFFS INHALED every 4 hour prn for 90 days Active Phentermine HCl 37.5 MG 1 capsule Orally Once a day for 90 days 10/29/2024 Active Wixela Inhub 250-50 MCG/ACT 1 puff Inhalation Twice a day for 30 days Active Phentermine HCl 15 MG 1 capsule Orally O nce a day for 90 days 07/02/2024 Active Zepbound 2.5 MG/0.5ML 0.5 mL Subcutaneou s once a week for 90 days 10/29/2024 Active Clindamycin Phos-Benzoyl Perox 1.2-5 % 1 application after washing in the evening Externally Once a day for 90 days 02/05/2024 Active Atorvastatin Calcium 20 MG 1 tablet Orally Once a day Active Vitamin D (Cholecalciferol) 25 MCG (1000 UT) 1 tablet QD Active EpiPen 2-Kory 0.3 MG/0.3ML as directed intramuscularly once prn for 1 days 02/07/2022 Active Montelukast Sodium 10 MG 1 tab(s) orally once a day for 90 days 05/03/2023 Active Aida Allergy 180 MG 1 tablet Swallow whole with water; do not take with fruit juices. Orally Once a day As needed Active Amphetamine-Dextroamph etamine 10 MG 1 tab(s) orally 2 times a day for 90 days 09/30/2024 Active ZyrTEC Allergy 10 MG 1 tab(s) orally onc e a day Active Magnesium 400 MG 1 tab PO once a day As needed Active Zoo Friends Multi Gummies 1 QD Active Immunizations Vaccine Route Administration Date Status Comme nts FLUBLOK PURCHASED IM Intramuscular 03/13/2018 Administered TDAP history Unknown 07/12/2014 Administered COVID-19 Vaccine (Moderna), History Unknown 06/22/2020 Administered COVID-19 Vaccine (Moderna), History Unknown 07/20/2020 Administered FLULAVAL PURCHASED IM Intramuscular 02/16/2021 Administere d COVID Vacc BIVALENT 12+ Pfizer IM Intramuscular 02/07/2022 Administered COVID Vacc 12+ Pfizer IM Intramuscular 05/26/2021 Administered lot# [id number] PER MIIS- IE FLUBLOK PURCHASED IM Intramuscular 03/08/2022 Administered FLUBLOK PURCHASED IM Intramuscular 02/26/2024 Administered PREVNAR 20 PURCHASED IM Intramuscular 07/02/2024 Administered TDAP >7 PURCHASED (ADACEL) IM Intramuscular 07/02/2024 Administered Problems Problem Type SNOMED Code ICD Code Onset Dates Problem Status W/U Status Risk Notes Problem Anxiety state (643661810) Anxiety (unspecified) (F41.9) Active confirmed Problem Constipation (62504812) Constipation, unspecified (K59.00) Active confirmed Problem Neck pain (81330721) Pain Neck (M54.2) Active confirmed Problem Adrenocortical insufficiency, other (E27.49) Active confirmed Problem Vitamin D deficiency (39066836) Vitamin D deficiency, unspecified (E55.9) Active confirmed Problem Obesity (042231719) Other obesity (E66.8) Active confirmed Problem Psychologic dyspareunia (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) Dyspareunia not due to a substance or known physiological condition (F52.6) Active confirmed Problem Tension-type headache (892564630) Tension-type headache, unspecified, not intractable (G44.209) Active confirmed Problem Headache disorder (385911418) Headache syndrome, other (G44.89) Active confirmed Problem Insomnia (131865987) Insomnia due to medical condition (G47.01) Active confirmed Problem Conductive hearing loss (12184451) Hearing loss, Conductive, unspecified (H90.2) Active confirmed Problem Nonruptured cerebral aneurysm (88155029) Cerebral aneurysm, nonruptured (I67.1) Active confirmed Problem Allergic rhinitis (46134601) Allergic rhinitis, Other (J30.89) Active confirmed Problem Mild intermittent asthma (756394949) Asthma Mild intermittent, uncomplicated (J45.20) Active confirmed Problem Hemorrhoids (10796726) Hemorrhoids other (K64.8) Active confirmed Problem Atopic dermatitis (27326810) Atopic dermatitis, unspecified (L20.9) Active confirmed Problem Solitary sacroiliitis (708105934) Sacroiliitis, not elsewhere classified (M46.1) Active confirmed Problem Menopause (453420543) Menopausal and female climacteric states (N95.1) Active confirmed Problem Hysterectomy (299746451) Acquired absence of both cervix and uterus (Z90.710) Active confirmed Problem Acquired absence of uterus (882526214) Acquired absence of uterus with remaining cervical stump (Z90.711) Active confirmed Problem Food allergy (006586496) Allergy to other foods (Z91.018) Active confirmed Problem Attention deficit hyperactivity disorder (398961947) ADHD, unspecified type (F90.9) Active confirmed Problem Gastro-esophageal reflux disease without esophagitis (079997619) Gastro-esophageal reflux disease without esophagitis (K21.9) Active confirmed Problem 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, 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 confirmed Problem Premenstrual dysphoric disorder (030508) Premenstrual dysphoric disorder (F32.81) Active confirmed Problem 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) MTHFR Deficiency (E72.12) Active confirmed Problem Fatty liver (894162696) Fatty Liver (K76.0) Active confirmed Vital Signs Temperature 98.4 degrees Fahrenheit 10/14/2024 Oximetry 98 10/14/2024 Blood pressure diastolic 86 mm Hg 10/14/2024 Height 63.5 in 10/29/2024 Blood pressure systolic 130 mm Hg 10/14/2024 Weight 185 lbs 10/29/2024 BMI 32.25 kg/m2 10/29/2024 Procedures Procedure Date Ordered Date Performed Result Body Sit e Spirometry 07/02/2024 N/A Encounters Encounter Location Date Provider Diagnosis [place] [address] [place] [address] 09/30/2024 Sweta Valle Asthma Mild intermittent, uncomplicated J45.20 ; ADHD, unspecified type F90.9 ; BMI 32.0-32.9, adult Z68.32 and Osteopenia NOS M85.80 [place] [address] [place] [address] 10/14/2024 Sweta Valle BMI 31.0-31.9, adult Z68.31 and Fatty Liver K76.0 [place] [address] [place] [address] 10/29/2024 Sweta Valle BMI 32.0-32.9, adult Z68.32 ; Menopausal and female climacteric states N95.1 ; Fatty Liver K76.0 ; Allergic rhinitis, Other J30.89 and Pain Neck M54.2 [place] [address] [place] [address] 02/05/2024 Yelena Longo Acne unspecified L70 .9 ; Asthma Mild intermittent, uncomplicated J45.20 and Hyperlipidemia, unspecified E78.5 [place] [address] [place] [address] 02/26/2024 Yelena Longo ADHD, unspecified ty pe F90.9 ; Pain back, unspecified M54.9 ; Eczema NOS L25.9 ; BMI 34.0-34.9, adult Z68.34 and Encounter for immunization Z23 [place] [address] [place] [address] 05/08/2024 Swtea Valle No Show or Late Canc el NS.LTCX [place] [address] [place] [address] 07/02/2024 Sweta Valle Asthma Mild intermittent, uncomplicated J45.20 ; CPE Z00.00 ; Nonalcoholic steatohepatitis ([place]) K75.81 ; Adrenocortical insufficiency, other E27.49 ; MTHFR Deficiency E72.12 ; Encounter for immunization Z23 ; Vitamin D deficiency, unspecified E55.9 ; ADHD, unspecified type F90.9 ; Cerebral aneurysm, nonruptured I67.1 ; BMI 32.0-32.9, adult Z68.32 ; Hemorrhoids other K64.8 ; Atopic dermatitis, unspecified L20.9 and Menopausal and female climacteric states N95.1 [place] [address] [place] [address] 08/04/2024 Charity Cook Osteopenia NOS M85.8 0 ; Menopausal and female climacteric states N95.1 and Eczema NOS L25.9 [place] [address] [place] [address] 12/30/2024 Sweta Valle Asthma Mild intermittent, uncomplicated J45.20 [place] [address] [place] [address] 02/05/2024 Charity Cook [place] [address] [place] [address] 02/05/2024 Yelena Longo [place] [address] [place] [address] 02/06/2024 Yelena Longo [place] [address] [place] [address] 02/27/2024 Yelena Longo BMI 34.0-34.9, adult Z68.34 [place] [address] [place] [address] 02/28/2024 Yelena Longo ADHD, unspecified ty pe F90.9 [place] [address] [place] [address] 04/27/2024 Sweta Valle Asthma Mild intermittent, uncomplicated J45.20 [place] [address] [place] [address] 05/08/2024 Charity Cook ADHD, unspecified ty pe F90.9 [place] [address] [place] [address] 07/02/2024 Sweta Valle [place] [address] [place] [address] 07/03/2024 Sweta Valle [place] [address] [place] [address] 07/17/2024 Sweta Valle Acne unspecified L70 .[address] [place] [address] [place] [address] 07/30/2024 Charity Cook [place] [address] [place] [address] 08/03/2024 Sweta Valle [place] [address] [place] [address] 08/04/2024 Charity Cook [place] [address] [place] [address] 08/25/2024 Sweta Valle Asthma Mild intermittent, uncomplicated J45.20 [place] [address] [place] [address] 09/30/2024 Sweta Valle BMI 31.0-31.9, adult Z68.31 [place] [address] [place] [address] 10/29/2024 Sweta Valle [place] [address] [place] [address] 11/01/2024 Sweta Valle Assessments Encounter Date Diagnosis (ICD Code) Assessment [...] even 10 a day, rosa in AM. 10/14/2024 BMI 31.0-31.9, adult (ICD-10 - Z68.31) She will look into the Nutrition [place] ulisses to track her food intake. Protein [...] fried or fatty or greasy foods. 10/29/2024 BMI 32.0-32.9, adult (ICD-10 - Z68.32) We will increase phentermine as above. She will let us know if she can get zepbound with savings card and if it isn't we will try wegovy 10/29/2024 Menopausal and female climacteric states (ICD-10 - N95.1) 02/05/2024 Acne unspecified (ICD-10 - L70.9) Discussed topical treatment options. Rx sent 02/05/2024 Asthma Mild intermittent, uncomplicated (ICD-10 - J45.20) Stable 02/26/2024 ADHD, unspecified type (ICD-10 - F90.9) Stable 02/26/2024 Pain back, unspecified (ICD-10 - M54.9) Can book with [facility] for chiro. Instructed on how to get ppw and book with retail center receptionist 05/08/2024 No Show or Late Cancel (ICD-10 - NS.LTCX) 07/02/2024 Asthma Mild intermittent, uncomplicated (ICD-10 - J45.20) 1. In the last 4 week, how often did your asthma symptoms (such as wheezing, coughing, chest tightness, or shortness of breath) prevent you from getting as much done at work, school, or home? 2. During the last 4 week, how often did you have shortness of breath? 3. During the last 4 week, how often did you wake up at night because of your asthma? 4. During the last 4 week, how often did you use your rescue inhaler or nebulizer (quick-relief medication)? 5. How would you rate your asthma control during the past week? ACT score: 24 Spirometry normal. Asthma has improved. Stopped wixela,doing singulair only 07/02/2024 CPE (ICD-10 - Z00.00) Please allow us to partner with you to help you achieve your health goals. We advise having an annual exam and visit to address age appropriate screening tests including screening for ASCVD, cancers, mood disorders, STIs, domestic violence, and other appropriate conditions based upon age and personal risk factors. Please ask us for assistance with tobacco, alcohol, or substance use if indicated. We enourage exercise as advised by the USPSTF/AAFP: Try to engage in 150 to 300 minutes of moderate physical activity each week. Any increase in activity is beneficial for health, especially for those under the target range. Adding/increasing strength training or incorporating HIIT workouts is important for bone health. Lifestyle Goals 1. Eat 3 vegetables and 2 fruits each day. 2. Be in the sunshine at least 30 minutes per day. 3. Adults: The U.S. National Academies of Sciences, Engineering, and Medicine recommends that men drink about 15.5 cups (3.7 liters) of fluids per day, and women drink about 11.5 cups (2.7 liters). and women: women should drink 10 cups of water per day, and women should drink 12 cups. Children and teens: Children and teens should drink 6 to 8 cups of water per day. 4. Do strengthening activities that work all the major muscle groups (legs, hips, back, abdomen, chest, shoulders and arms) on at least 2 days a week Do at least 150 minutes of moderate intensity activity a week or 75 minutes of vigorous intensity activity a week Spread exercise evenly over 4 to 5 days a week, or every day Reduce time spent sitting or lying down and break up long periods of not moving with some activity 5. Eat fatty fish at least 2x per week. Fatty fish include: [place], [place], [place], Sardines, Tuna, [place], Hallibut. 6. Make sure you are getting enough protein each day. You need 0.8 to 1.5 mg/kg depending on your activity level and health. 7. Use this USDA calculator for finding calories needed per day to support current weight, as well as finding other personalized nutrient needs, like protein and vitamins. https://www.nal.u sda.gov/human-nut syjhke-ckr-hlcs-s afety/dri-calcula tor 8. Limit processed foods and sweetened drinks. 9. If you smoke, ask for help to quit. 10. Limit alcohol to no more than 1 serving per day for women and 2 servings per day for men. 11. Get plenty of sleep. 12, Get outside each day. You need 30 minutes of sunshine each day without sunscreen. 13. Find ways to manage stress. Resources: https://www.[facility] .[place].edu/olivia moise/staying-hea lthy https://diabetes. org/food-nutritio n https://nutrition source.[facility]/wp-content /uploads// LLYshnl0601-8431. pdf My Plate https://www.mypla te.gov/whatsonmyp late?utm_source=G oogleSEM&utm_medi um=[facility]&utm_campai gn=uplevel-mypl.. . On line Exercise https://TraveDoc/The Filter formerly vidant duplin hospitalQu Biolog[employer] Inc.[place]/exe rcise-wellness/?c mp=ZKX-VWQ-UNQ-Ex erciseWellness-.. . https://www.[employer] /blog/free-home-w orkouts/ https://www.nhs.u k/conditions/nhs- fitness-studio/ 08/04/2024 Osteopenia NOS (ICD-10 - M85.80) Patient instructed on indications for use of new medications, proper administration, and potential side effects. I am recommending MHT for hormonal therapy perimenopausal Discussed the WHI study and the current understanding of low cardiac risk as long as hormones started within 10 years of menopause. we also discussed We did review FAMHX for ovarian cancer, breast cancer, bleeding or clotting disorders, heart disease. She is regular with her mammograms and plans to continue regularly. no hx clotting or bleeding abnormalities, is active, not a smoker. Discussed the patch which would eliminate the first-pass effect and progesterone to prevent endometrial hyperplasia. review possible side effects and to call for irregular bleeding or any new symptoms Rx sent for MHT with instructions s 08/04/2024 Menopausal and female climacteric states (ICD-10 - N95.1) s 12/30/2024 Asthma Mild intermittent, uncomplicated (ICD-10 - J45.20) 02/27/2024 BMI 34.0-34.9, adult (ICD-10 - Z68.34) 02/28/2024 ADHD, unspecified type (ICD-10 - F90.9) 04/27/2024 Asthma Mild intermittent, uncomplicated (ICD-10 - J45.20) 05/08/2024 ADHD, unspecified type (ICD-10 - F90.9) 07/17/2024 Acne unspecified (ICD-10 - L70.9) 08/25/2024 Asthma Mild intermittent, uncomplicated (ICD-10 - J45.20) 09/30/2024 BMI 31.0-31.9, adult (ICD-10 - Z68.31) 09/30/2024 BMI 32.0-32.9, adult (ICD-10 - Z68.32) PRescriber to reach out to pharm rep for help. It has already been approved but having difficulty at the pharmacy. 10/29/2024 Fatty Liver (ICD-10 - K76.0) Fatty [...] Avoid fried or fatty or greasy foods. 02/05/2024 Hyperlipidemia, unspecified (ICD-10 - E78.5) Discussed statin. Advised she start 02/26/2024 Eczema NOS (ICD-10 - L25.9) Moderate/severe dyshidrotic eczema. Will switch to clobetasol ointment. Can consider kenalog injection if no resolution 07/02/2024 Nonalcoholic steatohepatitis ([place]) (ICD-10 - K75.81) Continue to work with GI. Avoid alcohol, fried, fatty or greasy foods 08/04/2024 Eczema NOS (ICD-10 - L25.9) s 09/30/2024 Osteopenia NOS (ICD-10 - M85.80) make sure to eat calcium rich foods 2-3x per day. weight bearing exercise. Please increase your vitamin d to 2000 units per day. Increase your exposure to sunlight by 15-30 minutes a day and increase your intake of vitamin d rich foods. https://nutrition source.[facility]/vitamin-d/ 10/29/2024 Allergic rhinitis, Other (ICD-10 - J30.89) Stop taking aida with zyrtec. Rec xyzal instead. Continue flonase and add pattaday drops. Will send to Dr. Martin in [place] for referral 02/26/2024 BMI 34.0-34.9, adult (ICD-10 - Z68.34) Will renew phentermine rx for now 07/02/2024 Adrenocortical insufficiency, other (ICD-10 - E27.49) 10/29/2024 Pain Neck (ICD-10 - M54.2) Pt is requesting referral to [facility] for her neck 02/26/2024 Encounter for immunization (ICD-10 - Z23) 07/02/2024 MTHFR Deficiency (ICD-10 - E72.12) Food Sources A wide variety of foods naturally contain folate, but the form that is added to foods and supplements, folic acid, is better absorbed. In May 1997, the U.S. Food and Drug Administration required food manufacturers to add folic acid to foods commonly eaten, including breads, cereals, pasta, rice, and other grain products, to reduce the risk of neural tube defects. This program has helped to increase the average folic acid intake by about 100 mcg/day. [38,39] Good sources of folate include: Dark green leafy vegetables (turnip greens, spinach, amari lettuce, asparagus, [place] sprouts, broccoli) Beans Peanuts [place] seeds Fresh fruits, fruit juices Whole grains Liver Aquatic foods Eggs Fortified foods and supplements Signs of Deficiency and Toxicity Deficiency A folate deficiency is rare because it is found in a wide range of foods. However, the following conditions may put people at increased risk: Alcoholism. Alcohol interferes with the absorption of folate and speeds the rate that folate breaks down and is excreted from the body. People with alcoholism also tend to eat poor-quality diets low in folate-containing foods. . The need for folate increases during as it plays a role in the development of cells in the fetus. Intestinal surgeries or digestive disorders that cause malabsorption. Celiac disease and inflammatory bowel disease can decrease the absorption of folate. Surgeries involving the digestive organs or that reduce the normal level of stomach acid may also interfere with absorption. Genetic variants. People carrying a variant of the gene MTHFR cannot convert folate to its active form to be used by the body. Signs of deficiency can include: megaloblastic anemia (a condition arising from a lack of folate in the diet or poor absorption that produces less red blood cells, and larger in size than normal); weakness, fatigue; irregular heartbeat; shortness of breath; difficulty concentrating; hair loss; pale skin; mouth sores. (Source: https://nutrition source.[facility]/folic-acid /) 07/02/2024 Encounter for immunization (ICD-10 - Z23) 07/02/2024 Vitamin D deficiency, unspecified (ICD-10 - E55.9) Advised to take vitamin d3 supplementation, she is joleen 1000 units. Your goal is 50 to 80. A decrease in vitamin d is associated with fatigue, dry skin and hair, depression, heart inflammation, poor wound healing, bone pain/weakness, and muscle aches/cramps. Vitamin D may decrease tumor invasiveness and propensity to metastasize, leading to reduced cancer mortality. Higher serum 25-hydroxyvitamin D (25[OH]D) levels at diagnosis have been linked to longer survival in cancer patients. Advised to get more sunshine. Advised to eat more vitamin d rich foods. Few foods are naturally rich in vitamin D3. The best sources are the flesh of fatty fish and fish liver oils. Smaller amounts are found in egg yolks, cheese, and beef liver. Certain mushrooms contain some vitamin D2; in addition some commercially sold mushrooms contain higher amounts of D2 due to intentionally being exposed to high amounts of ultraviolet light. Many foods and supplements are fortified with vitamin D like dairy products and cereals. Cod liver oil [place] Swordfish Tuna fish Steele juice fortified with vitamin D Dairy and plant milks fortified with vitamin D Sardines Beef liver Egg yolk Fortified cereals (Source: https://nutrition source.[facility]/vitamin-d/ ) 07/02/2024 ADHD, unspecified type (ICD-10 - F90.9) She is on dextroamphetamine -amphetamine BID. Pt is going to put a timer on her phone to take her afternoon dose 07/02/2024 Cerebral aneurysm, nonruptured (ICD-10 - I67.1) Message sent to obtain the MRA of the brain 07/02/2024 BMI 32.0-32.9, adult (ICD-10 - Z68.32) Unable to afford GLPs so we will start phentermine and work on lifestyle changes. New medication started today. Reviewed side effect profile. Don't drive/use machinery/make big decisions until you know how you will react 07/02/2024 Hemorrhoids other (ICD-10 - K64.8) Has blood in stool from internal hemorrhoids, followed by GI. Stools have to be sopft and not have to be pushed out. Inc fiber, fluids and movement 07/02/2024 Atopic dermatitis, unspecified (ICD-10 - L20.9) We sent pt to dermatology. She will call us in to let us know who she wants to see 07/02/2024 Menopausal and female climacteric states (ICD-10 - N95.1) 05/08/2024 Other Plan Of Treatment Pending Test Test Name Order Date X ray : Spines, lumbosacral 06/22/2021 X ray : Knee, right 01/18/2020 Mammogram 02/07/2022 Mammogram 01/18/2021 Spirometry 05/03/2023 Spirometry 05/29/2023 Spirometry 07/24/2023 X ray : Spines, thoracic spine Colonoscopy 03/08/2022 Colonoscopy 01/18/2021 Colonoscopy 02/07/2022 GGTP 01/01/2020 Ultrasound : Trans Vaginal 04/22/2020 PAP, cervical; HPV Hybrid Capture High R isk DNA Probe any Dx 12/31/2016 Mammogram, routine annual screening 12/19 -ANTINUCLEAR ANTIBODIES TITER AND PATTER N 01/29/2020 FREE T3 01/01/2020 VITAMIN B12 01/18/2020 HSCRP 01/01/2020 COMPREHENSIVE METABOLIC PANL 07/05/2022 COMPREHENSIVE METABOLIC PANL 05/03/2023 COMPREHENSIVE METABOLIC PANL 01/06/2018 COMPREHENSIVE METABOLIC PANL 01/18/2021 COMPREHENSIVE METABOLIC PANL 11/11/2018 COMPREHENSIVE METABOLIC PANL 01/18/2020 COMPREHENSIVE METABOLIC PANL 01/12/2019 COMPREHENSIVE METABOLIC PANL 02/07/2022 COMPREHENSIVE METABOLIC PANL 10/28/2018 LIPID PANEL 02/07/2022 LIPID PANEL 01/18/2021 LIPID PANEL 01/18/2020 LIPID PANEL 01/12/2019 LIPID PANEL 05/03/2023 TSH WITH REFLEX TO T4 01/12/2019 TSH WITH REFLEX TO T4 02/07/2022 TSH WITH REFLEX TO T4 01/06/2018 ESTRADIOL 07/05/2022 ESTRADIOL 02/07/2022 FSH 07/05/2022 FSH 02/07/2022 LH 07/05/2022 LH 02/07/2022 PROGESTERONE 02/07/2022 PROGESTERONE 07/05/2022 TSH 01/18/2020 Vitamin D25 OH 05/03/2023 Vitamin D25 OH 02/07/2022 Vitamin D25 OH 01/12/2019 Vitamin D25 OH 01/18/2020 FREE T4 01/01/2020 CBC AUTO DIFF 01/18/2020 CBC AUTO DIFF 01/12/2019 CBC AUTO DIFF 07/05/2022 CBC AUTO DIFF 02/07/2022 CBC AUTO DIFF 05/03/2023 CBC AUTO DIFF 01/18/2021 MRI Brain W/O Contrast 02/07/2022 GGTP 11/11/2018 GGTP 10/28/2018 HOMOCYSTEINE, PLASMA 01/01/2020 MRA : Head without contrast 02/07/2022 DHEA SULFATE 01/01/2020 COMP MET PANEL 07/02/2024 Hemoglobin A1c 07/02/2024 LIPID PANEL 07/02/2024 Cortisol AM 07/02/2024 Phosphorus 07/02/2024 Alb,Hmeanth,DHEAS,E2,FSH,LH,PTH,Prog,SHBG,T est-F,Test-T 02/26/2019 Clinical Information (AOE) 02/26/2019 PREGNENOLONE, LC/MS/MS 01/01/2020 Covid-19 PCR (use this one) 05/18/2021 Rapid Covid 19 05/18/2021 QUANTIFERON TB GOLD PLUS (4 TUBES) 07/05 DEXA Bone density 07/02/2024 TSH WITH REFLEX TO FT4 05/03/2023 Vitamin D 07/02/2024 PTH 07/02/2024 Insurance Providers Payer Name Payer Address Payer Phone Subscriber Number Group Number Insured Name Patient Relationship to Insured Coverage Start Date Coverage End Date [employer] [place] (H[place]) [address] [address] [place] [address] [id number] LASHONDA ARREGUIN Self - patient is the insured Medical (General) History Medical History History ICD Code Seasonal allergies Fatty liver Vitamin D deficiency Raynaud's phenomenon - hx po s LARS low titer, saw rheum, was told no f/up necessary Tennis elbow (R) - improved with myofasc ial release GERD 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
== END 2024-12-30 13:22 | disposition home or self-care (01) ==
LOC: HO.HGI 12:48
PROVIDERS: Visit Provider Internal Medicine
DX: R10.13 Epigastric pain (principal); R11.2 Nausea with vomiting, unspecified; R74.8 Abnormal levels of other serum enzymes
CPT/HCPCS: 99214

== ENCOUNTER 2024-12-31 09:42 | Outpatient (REF) | payer OTHER, SELFPAY ==
--- OUTSIDE RECORDS SUMMARY | 2024-12-31 10:24 | XMS_ITS | Encounter Summary ---
Author Organization [facility] Address [address] [facility] [address] [place] [address] Phone Care Team Providers Care Director Of Accounts Payable Name Role Phone Isabel Chan Gordo MENESES Unavailable Susie Kirk MD Unavailable [phone] Charity Cook MD Primary Care Provider + Charity Cook MD Unavailable [phone] Encounter Details Date Type Department Care Team (Late st Contact Info) Description 09/04/2020 Prep for Surgery [facility] Obstetrics - Virtual Department [address] [place] [address] Ashleigh Holland MD [address] [facility] [address] [place] [address] [email or web address] Menorrhagia with irregular cycle (Primary Dx); Pre-operative [...] EDT) WBC 10.89 4.00 - 11.00 K/uL [facility] RBC 4.63 3.72 - 5.30 M/uL [facility] HGB 14.7 10.6 - 15.5 g/dL [facility] HCT 43.1 32.0 - 45.0 % [facility] PLT 336 140 - 430 K/uL [facility] MCV 93.1 78.0 - 97.0 fL [facility] MCH 31.7 25.0 - 33.0 pg [facility] MCHC 34.1 32.0 - 36.0 g/dL [facility] RDW 11.9 11.0 - 16.0 % [facility] MPV 10.8 8.4 - 12.8 fl [facility] NRBC 0.00 0 /100 WBCs [facility] ABSOLUTE NRBC 0.00 0 K/uL [facility] Blood 09/26/2020 12:1 1 PM EDT 09/26/2020 12:20 PM EDT Ashleigh Holland MD LAB BLOOD ORDERABLES Final Result [address] [address] * Type and Screen (ABO,Rh,Antibody Screen) (09/26/2020 12:11 PM EDT) ABO/Rh AB Positive [facility] Antibody Screen Negative [facility] Expiration Date of Sample 09/29/2020,2 359 [facility] Resulting Agency [facility] Blood 09/26/2020 12:1 1 PM EDT 09/26/2020 12:19 PM EDT us Ashleigh Holland MD BLOOD BANK TEST ORDERABLES Final Result [address] [address] documented in this encounter Visit Diagnoses Diagnosis [...] documented as of this encounter Care Teams Director Of Accounts Payable Relationship Specialty Start Date End Date Charity Cook MD [address] [place] [address] [email or web address] PCP - General Family Medicine 01/28/18 Isabel Chan CNM [address] [place] [address] Historical LMR Provider 03/07/17 2 Susie Kirk MD [address] [place] [address], [address] [place] [address] [email or web address] Historical LMR Provider 03/07/17 05/27/21 Charity Cook MD [address] [place] [address] [email or web address] Insurance Assigned Provider 09/20/18 05/27/21 documented as of this encounter Additional Source Comments The information contained in this document represents components of the legal health record. It is not the complete legal health record.[facility]
--- OUTSIDE RECORDS SUMMARY | 2024-12-31 12:45 | XMS_ITS ---
Author Organization [facility] Address [address] [place] [address] Care Team Providers Care Psychology Lecturer Name Role Phone Charity Cook Primary Care Provider Sweta Valle Unavailable [phone] REASON FOR VISIT f/u ADHD (IH), FU zepbound Encounters Encounter Location Date Provider Diagnosis [facility] [address] [place] [address] 12/31/2024 Sweta Valle Plan Of Treatment Next Appt Details Provider Name:Sweta Valle, 01/06/2025 05:15:00 PM, [address] [place], [address], Progress Notes * LASHONDA ARREGUINDOB: [birth year] (49 yo F)Acc No.[id number]:12/31/2024 Progress Note Patient: Robinson VIRK LASHONDA Provider: Cleo Valle MD :1975 A ge:49 Y S ex:Female Date:12/31/2024 Address:[address] [place] [address] [place] Pcp:Charity Cook Subjective: * Chief Complaints: * 1 . f/u ADHD (IH). 2. FU zepbound. * Medical History: Objective: * Vitals: Assessment: Plan: * Treatment: * Images: Billing Information: * Visit Code: * Procedure Codes: Care Plan Details* * Electronic signature of Lucrecia Valle MD on 12/31/2024 at 10:24 AM EDT Sign off status: Pending * Provider: Cleo Valle MD Date: 0 12/31/2024 Generated for Jazmine zhou/Sunshine/Nataly on: 0 12/31/2024 10:24 AM EDT
[2024-12-31 13:27] LABS: Hematocrit 42.1 % (37.0-47.0); Hemoglobin 14.5 g/dl (12.0-16.0); Mean Corpuscular HGB Conc 34.4 g/dl (31.0-35.0); Mean Corpuscular Hemoglobin 31.6 pg (27.0-33.0); Mean Corpuscular Volume 91.7 fL (80.0-98.0); NRBC Abs Auto 0.000 X10*3/uL (0.0-0.012); NRBC Pct Auto 0.0 /100WBC (0.0-0.2); Platelet Count 345 X10*3/uL (160-400); Red Blood Count 4.59 X10*6/uL (4.20-5.50); White Blood Count 11.4 X10*3/uL (4.8-10.8)
[2024-12-31 14:07] LABS: Alanine Aminotransferase 43 U/L (0-31); Albumin Level 4.5 g/dL (3.5-5.0); Alkaline Phosphatase 75 U/L (39-117); Aspartate Amino Transferase 33 U/L (5-31); Cholesterol 138 mg/dL (<200); HDL Cholesterol 53 mg/dL (>40); Total Protein 7.6 g/dL (6.5-8.0); Triglycerides 123 mg/dL (<150)
== END 2024-12-31 09:43 | disposition home or self-care (01) ==
LOC: HO.HKASLDS 09:42
PROVIDERS: Visit Provider Internal Medicine
DX: R74.8 Abnormal levels of other serum enzymes (principal); R11.2 Nausea with vomiting, unspecified
CPT/HCPCS: 36415; 80061; 80076; 85027

== ENCOUNTER 2025-01-14 09:44 | Outpatient (REF) | payer OTHER, SELFPAY ==
--- OUTSIDE RECORDS SUMMARY | 2024-10-29 10:15 | XMS_ITS ---
Author Organization [facility] ame Address [address] [place] [address] Care Team Providers Care Supervisor Matrix Name Role Phone Charity Cook Primary Care Provider Sweta Valle Unavailable [phone] Allergies Allergen (clinical drug ingredient) Drug/Non Drug [...] 10/18 10:13:28 AM > referral faxed to: [phone] Clinical Notes Provider Name: LESLEY GUZMAN, Provider UPIN: grp npi [id number], Provider , Provider Speciality: Allergy/Immunology, Address1: [address] [place] [address], Address2: [facility], [facility], [facility], Zip: [place], [address], , Referral Priority Routine REASON FOR VISIT discuss Zepbound (doxy)- CE, Zepbound not covered by insurance, having a bit of allergy flare sincemid September -lots of eye irritation, needs new rx for estradiol- if possible supply, needs referral to chiro- [facility] of [facility] chiropractic, no access to vitals Medications Medication [...] 90 days not started 10/14/2024 Active Nystatin-Triamcinolone 071054-9.1 UNIT/GM Ointment 1 application Externally Twice a [...] Category Social Info Options Details Social History 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, 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, 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 Exercise: not much, was do ing yoga Caffeine: one large cup a day Marital Status: Children: Daughter - Meghan blackburn 20 years old in college at [employer], 2 sons - Shelton age 17 and Jorge 12 Pets: Dogs:1 Anabaptist: presybeterian lives in [facility] live with her in the summer Ed: BA Section Notes: diet: vegetarian- lots of da iry Problems Problem Type SNOMED Code ICD Code Onset Dates Problem Status W/U Status Risk Notes Problem Pain Neck (M54.2) Active confirmed Vital Signs Height 63.5 in 10/29/2024 Weight 185 lbs 10/29/2024 BMI 32.25 kg/m2 10/29/2024 Encounters Encounter Location Date Provider Diagnosis [facility] [address] [place] [address] 10/29/2024 Sweta Valle BMI 32.0-32.9, adult Z68.32 [...] drops. Will send to Dr. Martin in [place] for referral 10/29/2024 Pain Neck (ICD-10 - M54.2) Pt is requesting referral to [facility] Chiropractor for her neck Plan Of Treatment [...] drops. Will send to Dr. Martin in [place] for referral Pain Neck Pt is requesting ref erral to [facility] for her neck Referrals Referral Date Details 10/29/2024 10/29/2024, Allergy management, LESLEY MARTIN Next Appt Details Follow Up: 3 months fu bmi, phenteramine, +/- glp1, Reason: Provider Name:Sweta Valle, 04/09/2025 04:00:00 PM, [address], [place], [address], History and Physical Notes * HPI (History [...] Referral Date Referring Provider Referred Provider Not kirit 10/29/2024 Sweta Valle DAVID Allergy man agement Progress Notes * KAIT ARREGUINDOB: [birth year] (49 yo F)Acc No.[id number]:10/29/2024 Patient: KAIT FISH Provider: Cleo Valle MD :1975 A ge:49 Y S ex:Female Date:10/29/2024 Address:[address] [place] [id number] Pcp:Charity Cook Subjective: * Chief Complaints: * d iscuss Zepbound (doxy)- CEZepbound not covered by insurancehaving a bit of allergy flare since mid September -lots of eye irritationNeeds new rx for estradiol- if possible supplyneeds [facility] * HPI: I nterim [...] syndrome COVID 09/2021 Medical History Verified * 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 * Surgical History: wisdom teeth 1992 hysterectomy 09/2020 Surgical History verified. * Hospitalization/Major Diagno stic Procedure: No Hospitalization Documented. Hospitalization Verified. * Family History: F ather: alive 76 yrs, high cholesterolCongestive Heart failure. M other: alive 79 yrs, high cholesterol, diagnosed with DM II CONTROLLED. M aternal Grand Father: Prostate cancer, diagnosed with Eaton-Lambert syndrome. M aternal Grand Mother: bladder cancer, diagnosed with Eaton-Lambert syndrome. P aternal Grand Mother: diagnosed with Eaton-Lambert syndrome. 1 brother(s) - healthy. 2 son(s) , 1 daughter(s) - healthy. . F amily History Verified.. Maternal 1st cousin with stage 4 breast ca in 30s paternal aunt schizophrenia, 1st cousin bipolar, other cousin might be bpd Mother: anyeursm Father: Afib, pacemaker. * Social History: Tabitha graff: in [place], parents live with her in the summer. Ed: BA. Smoking: no . M arital Status: . Children: Daughter - Bonnie 20 years old in college at [employer], 2 sons - Shelton age 17 and Jorge 12. 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 Anabaptist: presybeterian. Exercise: not much, was doing yoga. Caffeine: [...] evening Externally Once a day Nystatin- Triamcinolone 371451-9.1 UNIT/GM Ointment 1 application Externally Twice a [...] evening Externally Once a day Taking Nystatin-Triamcinolone 593086-7.1 UNIT/GM Ointment 1 application Externally Twice a [...] contact appropriate.? Assessment: * Assessment: 1. B ME 32.0-32.9, adult - Z68.32 (Primary) 2 . [...] drops. Will send to Dr. Martin in [place] for referral ? Referral To:LESLEY MARTIN Allergy/Immunology Reason:Allergy management 5. P ain Neck Notes: Pt is requesting referral to [facility] Chiropractor for her neck * Procedure Codes: 9 9214 Office Visit 30-39 [id number] Complex e/m visit add on * Follow Up: 3 months fu bmi, phenteramine, +/- glp1 Billing Information: * Procedure Codes: 20807 Office Visit 30-39 Mins. G2211 Complex e/m visit add on. * Electronic signature of Lucrecia Valle MD on 01/14/2025 at 10:53 AM EDT Sign off status: Pending * Provider: Cleo [place] MD Date: 0 10/29/2024 Generated for Jazmine zhou/Sunshine/Edgaritting on: 0 01/14/2025 10:53 AM EDT
--- OUTSIDE RECORDS SUMMARY | 2024-12-31 12:45 | XMS_ITS ---
Author Organization [facility] Address [address] [place] [address] Care Team Providers Care Tooling Specialist Name Role Phone Charity Cook Primary Care Provider [phone] Sweta Valle Unavailable [phone] REASON FOR VISIT f/u ADHD (IH), FU zepbound Encounters Encounter Location Date Provider Diagnosis [facility] [address] [place] [address] 12/31/2024 Sweta Valle Plan Of Treatment Next Appt Details Provider Name:Sweta Valle, 04/09/2025 04:00:00 PM, [address] [place], [address], Progress Notes * LASHONDA ARREGUINDOB: [birth year] (49 yo F)Acc No.[id number]:12/31/2024 Progress Note Patient: Robinson VIRK LASHONDA Provider: Cleo Valle MD :1975 A ge:49 Y S ex:Female Date:12/31/2024 Address:[facility] [place] Pcp:Charity Cook Subjective: * Chief Complaints: * f /u ADHD (IH)FU zepbound Billing Information: * Procedure Codes: Care Plan Details* * Electronic signature of Lucrecia Valle MD on 01/14/2025 at 10:53 AM EDT Sign off status: Pending * Provider: Cleo Valle MD Date: 0 12/31/2024 Generated for Jazmine zhou/Sunshine/Nataly on: 0 01/14/2025 10:53 AM PHONG
--- OUTSIDE RECORDS SUMMARY | 2025-01-06 13:15 | XMS_ITS ---
Author Organization [facility] Address [address] [place] [address] Care Team Providers Care Produce Inspector Name Role Phone Charity Cook Primary Care Provider Sweta Valle Unavailable [phone] Allergies Allergen (clinical drug ingredient) Drug/Non Drug [...] Unknown Allergy Active REASON FOR VISIT f/u adhd (IH), ADHD= 40 Medications Medication SIG (Take, Route, Frequency, Duration) Notes Start Date End Date Status Nystatin-Triamcinolone 595918-0.1 UNIT/GM Ointment 1 application Externally Twice a day; Duration: 30 days 08/04/2024 Active Albuterol Sulfate HFA 108 (90 Base) MCG/ACT Aerosol Solution 2 PUFFS INHALED every 4 hour prn; Duration: 90 days Acti ve Montelukast Sodium 10 MG Tablet 1 tab(s) orally once a day; Duration: 90 days 05/03/2023 Active EpiPen 2-Kory 0.3 MG/0.3ML Solution Auto-injector as directed intramuscularly once prn; Duration: 1 days 02/07/2022 Activ e Magnesium 400 MG Tablet 1 tab PO once a day As needed Active Zoo Friends Multi Gummies 1 QD Active Clindamycin Phos-Benzoyl Perox 1.2-5 % Gel 1 application after washing in the evening Externally Once a day; Duration: 90 days 02/05/2024 Active Vitamin D (Cholecalciferol) 25 MCG (1000 UT) Tablet 1 tablet QD Active hydrOXYzine HCl 25 MG Tablet 1 tablet as needed Orally Once a day; Duration: 30 days 01/06/2025 Active Vyvanse 10 MG Capsule 1 capsule in the m orning Orally Once a day; Duration: 30 days 01/06/2025 Active Dupixent 200 MG/1.14ML Solution Prefilled Syringe as directed Subcutaneous Act jaya Xyzal Allergy 24HR 5 MG Tablet 1 tablet in the evening Orally Once a day Active Atorvastatin Calcium 20 MG Tablet 1 tablet Orally Once a day A ctive Wixela Inhub 250-50 MCG/ACT Aerosol Powder Breath Activated 1 puff Inhalation Twice a day; Duration: 30 days needs to schedule an appointment Active Phentermine HCl 37.5 MG Capsule 1 capsule Orally Once a day; Duration: 90 days 10/29/2024 Active Estradiol 0.0375 MG/24HR Patch Twice Weekly 1 patch to skin Transdermal Two times a Week; Duration: 90 days 08/04/2024 Active Social History Social History Additional Details Category Social Info Options Details Social History 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, 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, 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 Exercise: not much, was do ing yoga Caffeine: one large cup a day Marital Status: Children: Daughter - Meghan blackburn 20 years old in college at [employer], 2 sons - Gabrielle age 17 and Jorge 12 Pets: Dogs:1 Zoroastrianism: religious lives in [facility] [place] live with her in the summer Ed: BA Section Notes: diet: vegetarian- lots of da iry Problems Problem Type SNOMED Code ICD Code Onset Dates Problem Status W/U Status Risk Notes Problem BMI 32.0-32.9, adult (Z68.32) Active confirmed Vital Signs Temperature 96.8 degrees Fahrenheit 01/07/20 25 Blood pressure systolic 128 mm Hg 01/07/20 25 Blood pressure diastolic 80 mm Hg 025 Height 63.5 in 01/06/2025 Weight 185.2 lbs 01/06/2025 BMI 32.29 kg/m2 01/06/2025 Oximetry 97 01/06/2025 Encounters Encounter Location Date Provider Diagnosis [place] [address] [place], [place] [address] 01/06/2025 Sweta Herringey ADHD, unspecified ty pe F90.9 ; Anxiety (unspecified) F41.9 ; 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.01 ; Fatty Liver K76.0 and BMI 32.0-32.9, adult Z68.32 Assessments Encounter Date Diagnosis (ICD Code) Assessment Notes Treatment Notes Treatment Clinical Notes Section Notes 01/06/2025 ADHD, unspecified type (ICD-10 - F90.9) Amphetamine-Dext roamphetamine 10 MG Tablet twice a day - Discontinue Adderall 10mg - Start Vyvanse 10mg in the morning - Follow up in 3 months to assess efficacy 01/06/2025 Anxiety (unspecified) (ICD-10 - F41.9) 01/06/2025 Insomnia due to medical condition (ICD-10 - G47.01) - Start Hydroxyzine 25mg at night as needed - Advised to journal thoughts before bed 01/06/2025 Fatty Liver (ICD-10 - K76.0) - Continue monitoring liver function - Advised to avoid fried, fatty, greasy foods - Recommended to try GABRIELLE-E supplement if available - Follow up with GI doctor for ultrasound results and barium swallow 01/06/2025 BMI 32.0-32.9, adult (ICD-10 - Z68.32) - Continue Phentermine 37mg in the morning - Combined follow-up for ADHD and weight management in 3 months 01/06/2025 Other - Resend chiropractic referral to [facility] in [place], [place] Plan Of Treatment Medication Medication Name Sig Start Date Stop Date Notes hydrOXYzine HCl 25 MG Tablet 1 tablet as needed Orally Once a day; Duration: 30 days 01/06/2025 Vyvanse 10 MG Capsule 1 capsule in the m orning Orally Once a day; Duration: 30 days 01/06/2025 Treatment Notes Assessment Notes ADHD, unspecified type Amphetamine-Dextroamphetamine 10 MG Tablet twice a day - Discontinue Adderall 10mg - Start Vyvanse 10mg in the morning - Follow up in 3 months to assess efficacy Insomnia due to medical condition - Start Hydroxyzine 25mg at night as needed - Advised to journal thoughts before bed Fatty Liver - Continue monitoring liver function - Advised to avoid fried, fatty, greasy foods - Recommended to try GABRIELLE-E supplement if available - Follow up with GI doctor for ultrasound results and barium swallow BMI 32.0-32.9, adult - Continue Phentermine 37mg in the morning - Combined follow-up for ADHD and weight management in 3 months Other - Resend chiropracti c referral to [facility] in [place], [place] Next Appt Details Follow Up: 3 Months adhd, fu phenteramine, insomnia, Reason: Provider Name:Sweta Valle, 04/09/2025 04:00:00 PM, [address], [place], [address], History and Physical Notes * Examination Category [...] ion Progress Notes * KAIT ARREGUINDOB: [birth year] (49 yo F)Acc No.[id number]:01/06/2025 Progress Note Patient: KAIT FISH Provider: Cleo Valle MD :1975 A ge:49 Y S ex:Female Date:01/06/2025 Address:[address] [place] [address] [place] Pcp:Charity Cook Subjective: * Chief Complaints: * f /u adhd (IH)ADHD= 40 * HPI: I nterim History: Kait, a 49-year-old presents today for f/u adhd Patient reports abdominal pain. She is scheduled for a barium swallow next in [place]. Patient complains of difficulty concentrating and poor sleep, getting only 4-5 hours of sleep per night and sometimes staying up until midnight. She reports eating less with the current medication regimen. * ROS: S ee HPI. Other systems reviewed and noncontributory except for as noted above. 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 * Social History: Tabitha graff: in [place], parents live with her in the summer. Ed: BA. Smoking: no . M arital Status: . Children: Daughter - Bonnie 20 years old in college at [employer], 2 sons - Gabrielle age 17 and Jorge 12. 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 Zoroastrianism: religious. Exercise: not much, was doing yoga. Caffeine: one large cup a day. Pets: Dogs:1. Social History Verified. diet: vegetarian- lots of dairy. * Medications: T akingDupixent 200 MG/1.14ML Solution Prefilled Syringe as directed Subcutaneous Xyzal Allergy 24HR 5 MG Tablet 1 tablet in the evening Orally Once a day Atorvastatin Calcium 20 MG Tablet 1 tablet Orally Once a day Vitamin D (Cholecalciferol) 25 MCG (1000 UT) Tablet 1 tablet QD Magnesium 400 MG Tablet 1 tab PO once a day As neededZoo Friends Multi Gummies 1 QD Clindamycin Phos-Benzoyl Perox 1.2-5 % Gel 1 application after washing in the evening Externally Once a day Nystatin-Triamcinolone 618799-3.1 UNIT/GM Ointment 1 application Externally Twice a day Albuterol Sulfate HFA 108 (90 Base) MCG/ACT Aerosol Solution 2 PUFFS INHALED every 4 hour prn Montelukast Sodium 10 MG Tablet 1 tab(s) orally once a day EpiPen 2-Kory 0.3 MG/0.3ML Solution Auto- injector as directed intramuscularly once prn Phentermine HCl 37.5 MG Capsule 1 capsule Orally Once a day Estradiol 0.0375 MG/24HR Patch Twice Weekly 1 patch to skin Transdermal Two times a Week Wixela Inhub 250-50 MCG/ACT Aerosol Powder Breath Activated 1 puff Inhalation Twice a day needs to schedule an appointmentTaking Dupixent 200 MG/1.14ML Solution Prefilled Syringe as directed Subcutaneous Taking Xyzal Allergy 24HR 5 MG Tablet 1 tablet in the evening Orally Once a day Taking Atorvastatin Calcium 20 MG Tablet 1 tablet Orally Once a day Taking Vitamin D (Cholecalciferol) 25 MCG (1000 UT) Tablet 1 tablet QD Taking Magnesium 400 MG Tablet 1 tab PO once a day As neededTaking Zoo Friends Multi Gummies 1 QD Taking Clindamycin Phos-Benzoyl Perox 1.2-5 % Gel 1 application after washing in the evening Externally Once a day Taking Nystatin-Triamcinolone 493780-3.1 UNIT/GM Ointment 1 application Externally Twice a day Taking Albuterol Sulfate HFA 108 (90 Base) MCG/ACT Aerosol Solution 2 PUFFS INHALED every 4 hour prn Taking Montelukast Sodium 10 MG Tablet 1 tab(s) orally once a day Taking EpiPen 2-Kory 0.3 MG/0.3ML Solution Auto-injector as directed intramuscularly once prn Taking Phentermine HCl 37.5 MG Capsule 1 capsule Orally Once a day Taking Estradiol 0.0375 MG/24HR Patch Twice Weekly 1 patch to skin Transdermal Two times a Week Taking Wixela Inhub 250-50 MCG/ACT Aerosol Powder Breath Activated 1 puff Inhalation Twice a day needs to schedule an appointmentDiscontinuedPhentermine HCl 37.5 MG Capsule 1 capsule Orally Once a day Amphetamine-Dextroamphetamine 10 MG Tablet 1 tab(s) orally 2 times a day Aida Allergy 180 MG Tablet 1 tablet Swallow whole with water; do not take with fruit juices. Orally Once a day As neededZyrTEC Allergy 10 MG Tablet 1 tab(s) orally once a day Zepbound 2.5 MG/0.5ML Solution Auto-injector 0.5 mL Subcutaneous once a week , Notes to Pharmacist: not startedZepbound 2.5 MG/0.5ML Solution Auto-injector 0.5 mL Subcutaneous once a week Medication List reviewed and reconciled with the patientDiscontinued Phentermine HCl 37.5 MG Capsule 1 capsule Orally Once a day Discontinued Amphetamine-Dextroamphetamine 10 MG Tablet 1 tab(s) orally 2 times a day Discontinued Aida Allergy 180 MG Tablet 1 tablet Swallow whole with water; do not take with fruit juices. Orally Once a day As neededDiscontinued ZyrTEC Allergy 10 MG Tablet 1 tab(s) orally once a day Discontinued Zepbound 2.5 MG/0.5ML Solution Auto- injector 0.5 mL Subcutaneous once a week , Notes to Pharmacist: not startedDiscontinued Zepbound 2.5 MG/0.5ML Solution Auto-injector 0.5 mL Subcutaneous once a week Medication List reviewed and reconciled with the patient * Allergies: P EANUT: Anaphylactic shockTree NutsEGG WHITESCRABTUNAGREEN BEANSCANTALOUPELatexSHELLFISHyesAllergies Verified. Objective: * Vitals: I nitials:db, Ht: 63.5 in, Wt: 185.2 lbs, BMI: 32.29 Index, Temp: 96.8 F, Temp Route: T, HR: 54 /min, PulseOx: 97, BP: 128/80 mm Hg, ADHD/ADD: 40. * Examination: G eneral Examination: General Appearance: W ell appearing and in no acute distress. S kin L ips and nail beds pink. H EENT: H ead - NC/AT, clear conjunctiva. N liss, Thyroid : s upple. L ungs: N o use of accessory muscles, no audible wheezes, no stridor. E xtremities: n o clubbing, no edema. N eurologic Exam: n on-focal exam. M usculoskeletal N ormal gait and station. Assessment: * Assessment: 1. A DHD, unspecified type - F90.9 (Primary) 2 . A nxiety (unspecified) - F41.9 3 . I nsomnia due to medical condition - G47.01 4 . F atty Liver - K76.0 5 . B KS 32.0-32.9, adult - Z68.32 Plan: * Treatment: 2. I nsomnia due to medical condition Start hydrOXYzine HCl Tablet, 25 MG, 1 tablet as needed, Orally, Once a day, 30 days, 30, Refills 0. Notes: - Start Hydroxyzine 25mg at night as needed - Advised to journal thoughts before bed 3. F atty Liver Notes: - Continue monitoring liver function - Advised to avoid fried, fatty, greasy foods - Recommended to try GABRIELLE-E supplement if available - Follow up with GI doctor for ultrasound results and barium swallow 4. B KS 32.0-32.9, adult Notes: - Continue Phentermine 37mg in the morning - Combined follow-up for ADHD and weight management in 3 months 5. O thers Notes: - Resend chiropractic referral to [facility] in [place], [place] * Procedure Codes: 9 6127 PHQ9 or ADHD scale * Follow Up: 3 Months adhd, fu phenteramine, insomnia Billing Information: * Procedure Codes: 47963 PHQ9 or ADHD scale. Care Plan Details* * Electronic signature of Lucrecia Valle MD on 01/14/2025 at 10:54 AM EDT Sign off status: Pending * Provider: Cleo Valle MD Date: 01/06/2025 Generated for Jazmine zhou/Sunshine/Edgaritting on: 01/14/2025 10:54 AM EDT
--- NOTE | ~2025-01-14 | FL_ITS ---
EXAMINATION: Barium swallow with air. CLINICAL INDICATION: Nausea with vomiting. COMPARISON: Ultrasound abdomen 11/26/2022 TECHNIQUE: Routine barium swallow was performed with thick barium and effervescent granules and upright view followed by patient lying supine and prone positions. FINDINGS: Oral administration of thick barium and air-fluid granules is normal propagation of bolus from the oral cavity through the pharynx, esophagus into stomach without any evidence of obstruction, narrowing or stricture. No laryngeal penetration or aspiration seen. No intraluminal luminal filling defect or extrinsic compression seen. On supine lying position there is no gastroesophageal reflux or hiatal hernia. FL/FL barium swallow with air IMPRESSION: Unremarkable barium swallow exam. Fluoroscopy time: 2 minutes and 23 seconds. Dose area product: 2413. Electronically signed by: Haider Marino MD 01/14/2025 02:25 PM EDT
--- OUTSIDE RECORDS SUMMARY | 2025-01-14 10:53 | XMS_ITS | Encounter Summary ---
Author Organization [facility] Address [address] [place] [address] [place] [address] Phone Care Team Providers Care Body Builder Apprentice Name Role Phone Dustin Isabel Gordo MENESES Unavailable [phone] Susie Kirk A Unavailable [phone] Susie Kirk MD Primary Care Provider [phone] Charity Cook MD Primary Care Provider + Charity Cook MD Unavailable [phone] Encounter Details Date Type Department Care Team (Late st Contact Info) Description 01/07/2018 Ancillary Orders Virtual Department [address] [place] [address] Amanda Pop PA-C [address] [place] [address] [email or web address] Breast screening Social History Tobacco Use Types Packs/Day Years Used Date Smoking Tobacco: Never Assessed Comments Unknown Sex and Gender Information Value Date Recorded Sex Assigned at Not on file Legal Sex Female 9:30 PM EDT Gender Identity Not on file Sexual Orientation Not on file documented as of this encounter Plan of Treatment Not on file documented as of this encounter Results * BI MAMMOGRAM SCREENING WITH TOMOSYNTHESIS WITH CAD (BILATERAL) (01/28/2018 4:43 PM EDT) Anatomical Region Laterality Modality Breast Left, Breast Right, Breast Bilateral Bila teral Mammography 01/29/2018 9:51 AM EDT Impressions 01/29/2018 9:52 AM EDT No mammographic evidence of malignancy. RECOMMENDED FOLLOWUP: Routine screening mammography is recommended, as clinically appropriate. The results will be sent to the patient. BI-RADS CATEGORY: 1 - Negative. BREAST DENSITY: The breast tissue is heterogeneously dense, an appearance which lowers the sensitivity of mammography. POS - CDHMAMA Narrative 01/29/2018 9:52 AM EDT BI MAMMOGRAM SCREENING WITH TOMOSYNTHESIS WITH CAD (BILATERAL), HISTORY: Screening. COMPARISON: Prior studies dating back to 2011, most recently 01/22/2017. TECHNIQUE: Digital breast tomosynthesis was performed in craniocaudal and mediolateral oblique projections. Reconstructed screening 2-D views were generated from the tomosynthesis images. Images were interpreted in conjunction with R-2 Image Zinc Miner computer-aided detection. FINDINGS: Breast density: The breast parenchyma is heterogeneously dense, which may lower the sensitivity of mammography. There are no suspicious masses, suspicious areas of architectural distortion or suspicious clusters of microcalcifications. Procedure Note Karol Stapleton MD - 01/29/2018 BI MAMMOGRAM SCREENING WITH TOMOSYNTHESIS WITH CAD (BILATERAL), HISTORY: Screening. COMPARISON: Prior studies dating back to 2011, most recently 01/22/2017. TECHNIQUE: Digital breast tomosynthesis was performed in craniocaudal andmediolateral oblique projections. Reconstructed screening 2-D views weregenerated from the tomosynthesis images. Images were interpreted inconjunction with R-2 Image Zinc Miner computer-aided detection. FINDINGS: Breast density: The breast parenchyma is heterogeneously dense, which maylower the sensitivity of mammography. There are no suspicious masses, suspicious areas of architecturaldistortion or suspicious clusters of microcalcifications. IMPRESSION: No mammographic evidence of malignancy. RECOMMENDED FOLLOWUP: Routine screening mammography is recommended, asclinically appropriate. The results will be sent to the patient. BI-RADS CATEGORY: 1 - Negative. BREAST DENSITY: The breast tissue is heterogeneously dense, an appearancewhich lowers the sensitivity of mammography. POS - CDHMAMA Amanda Pop PA-C IMG MG EXAMS Final Result documented in this encounter Visit Diagnoses Diagnosis Breast screening Breast screening, unspecified Breast screening Breast screening, unspecified documented in this encounter Additional Health Concerns [...] documented as of this encounter Care Teams Body Builder Apprentice Relationship Specialty Start Date End Date Susie Kirk MD [address] [place] [address], [address] [place] [address] PCP - General 05/23/17 01/27/18 Charity Cook MD [address] [place] [address] PCP - General Family Medicine 01/28/18 Isabel Chan CNM [address] [place] [address] Historical LMR Provider 03/07/17 2 Susie Kirk MD [address] [place] [address], [address] [place] [address] [email or web address] Historical LMR Provider 03/07/17 05/27/21 Charity Cook MD [address] [place] [address] [email or web address] Insurance Assigned Provider 09/20/18 05/27/21 documented as of this encounter Additional Source Comments The information contained in this document represents components of the legal health record. It is not the complete legal health record.[facility]
--- OUTSIDE RECORDS SUMMARY | 2025-01-14 10:53 | XMS_ITS | Encounter Summary ---
Author Organization [facility] Address [facility] [address] [place] [address] Phone Care Team Providers Care Kit Assembler Name Role Phone Isabel Chan Gordo MENESES Unavailable [phone] Susie Kirk MD Unavailable [phone] Charity Cook MD Primary Care Provider + Charity Cook MD Unavailable [phone] Encounter Details Date Type Department Care Team (Latest Contact Info) Description 05/18/2021 Transcribe Orders Virtual Department [address] [place] [address] Rafa De Leon MD, MPH [address] [place] [address] [email or web address] Exposure to COVID-19 virus (Primary Dx) Social History Tobacco Use Types Packs/Day Years Used Date Smoking Tobacco: Never Smokeless Tobacco: Never Alcohol Use Standard Drinks/Week Comments Not Currently 0 (1 standard drink = 0.6 oz [...] documented as of this encounter Results * COVID-19 PCR Order (05/18/2021 2:47 PM EST) COVID Testing Status In-house testing being performed [facility] Symptomatic? NO [facility] Other 05/18/2021 2:47 PM EST 05/18/2021 9:22 PM EST us Rafagaetano De Leon MD, MPH BODY FLUIDS AND STOOLS ORDERABLES Final Result [address] [address] documented in this encounter Visit Diagnoses Diagnosis Exposure to COVID-19 virus- Primary documented in this encounter Additional Health Concerns Infection Onset Date Last Indicated Resolved Time CoV-Exposed Comment:From COVIDPass 06/16/2021 06/16/2021 06/27/2021 1:22 A M EST CoV-Risk 06/20/2021 06/20/2021 06/30/2021 1:22 AM EST CoV-Exposed Comment:From COVIDPass 06/28/2021 06/28/2021 07/09/2021 1:22 A M EST CoV-Risk 09/28/2021 09/28/2021 09/28/2021 7:05 PM EDT COVID-19 09/28/2021 09/28/2021 10/19/2021 1:22 AM EDT documented as of this encounter Care Teams Kit Assembler Relationship Specialty Start Date End Date Charity Cook MD [address] [place] [address] [email or web address] PCP - General Family Medicine 01/28/18 Isabel Chan CNM [address] [place] [address] Historical LMR Provider 03/07/17 2 Susie Kirk MD [address] [place] [address], [address] [place] [address] [email or web address] Historical LMR Provider 03/07/17 05/27/21 Charity Cook MD [address] [place], [place] [id number] [email or web address] Insurance Assigned Provider 09/20/18 05/27/21 documented as of this encounter Additional Source Comments The information contained in this document represents components of the legal health record. It is not the complete legal health record.[facility]
--- OUTSIDE RECORDS SUMMARY | 2025-01-14 10:53 | XMS_ITS | Encounter Summary ---
Author Organization [facility] Address [address] [facility] [address] [place] [address] Phone Care Team Providers Care Transfer Machine Operator Name Role Phone Isabel Chan Gordo MENESES Unavailable Susie Kirk MD Unavailable [phone] Charity Cook MD Primary Care Provider + Charity Cook MD Unavailable [phone] Encounter Details Date Type Department Care Team (Late st Contact Info) Description 09/04/2020 Prep for Surgery [facility] Obstetrics - Virtual Department [address] [place] [address] Ashleigh Holland MD [address] [facility] [address] [place] [address] Menorrhagia with irregular cycle (Primary Dx); Pre-operative [...] EDT) WBC 10.89 4.00 - 11.00 K/uL [facility] RBC 4.63 3.72 - 5.30 M/uL [facility] HGB 14.7 10.6 - 15.5 g/dL [facility] HCT 43.1 32.0 - 45.0 % [facility] PLT 336 140 - 430 K/uL [facility] MCV 93.1 78.0 - 97.0 fL [facility] MCH 31.7 25.0 - 33.0 pg [facility] MCHC 34.1 32.0 - 36.0 g/dL [facility] RDW 11.9 11.0 - 16.0 % [facility] MPV 10.8 8.4 - 12.8 fl [facility] NRBC 0.00 0 /100 WBCs [facility] ABSOLUTE NRBC 0.00 0 K/uL [facility] Blood 09/26/2020 12:1 1 PM EDT 09/26/2020 12:20 PM EDT Ashleigh Holland MD LAB BLOOD ORDERABLES Final Result [address] [address] * Type and Screen (ABO,Rh,Antibody Screen) (09/26/2020 12:11 PM EDT) ABO/Rh AB Positive [facility] Antibody Screen Negative [facility] Expiration Date of Sample 09/29/2020,2 359 [facility] Resulting Agency [facility] Blood 09/26/2020 12:1 1 PM EDT 09/26/2020 12:19 PM EDT us Ashleigh Holland MD BLOOD BANK TEST ORDERABLES Final Result [address] [address] documented in this encounter Visit Diagnoses Diagnosis [...] documented as of this encounter Care Teams Transfer Machine Operator Relationship Specialty Start Date End Date Charity Cook MD [address] [place] [address] PCP - General Family Medicine 01/28/18 Isabel Chan CNM [address] [place] [address] Historical LMR Provider 03/07/17 2 Susie Kirk MD [address] [place] [address], [address] [place] [address] Historical LMR Provider 03/07/17 05/27/21 Charity Cook MD [address] [place] [address] Insurance Assigned Provider 09/20/18 05/27/21 documented as of this encounter Additional Source Comments The information contained in this document represents components of the legal health record. It is not the complete legal health record.[facility]
--- OUTSIDE RECORDS SUMMARY | 2025-01-14 10:53 | XMS_ITS | Encounter Summary ---
Author Organization [facility] Address [facility] [address] [place] [address] Phone Care Team Providers Care Brand Sales Consultant Name Role Phone Isabel Chan ZAIRA Unavailable [phone] Susie Kirk MD Unavailable [phone] Charity Cook MD Primary Care Provider + Charity Cook MD Unavailable [phone] Encounter Details Date Type Department Care Team (Late st Contact Info) Description 09/27/2020 Procedure Pass [place] Admitting Dept - Virtual Department [address] [place] [address] [id number] Social History Tobacco Use Types Packs/Day Years [...] on file documented as of this encounter Functional Status * Calculated C-SSRS Risk Score (Lifetime/Recent) Answer Date of Assessment Author No Risk Indicated 09/27/2020 10:33 PM EDT Aleyda Shaffer, ANTON * Wilson Suicide Severity Rating Scale (Screener/Recent Self-Report) Question Answer Date of Assessment Author 1. Wish to be (Past 1 Month) No 09/27/2020 10:33 PM EDT Aleyda Galdamez RN 2. Non-Specific Active Suicidal Thoughts (Past 1 Month) No 09/27/2020 10:33 PM EDT Aleyda Galdamez RN 6. Suicidal Behavior (Lifetime) No 09/27/2020 10:33 PM EDT Aleyda Galdamez RN documented as of this encounter Plan of Treatment Not on file documented as of this encounter Visit Diagnoses Not on filedocumented in this encounter Additional Health Concerns Infection [...] documented as of this encounter Care Teams Brand Sales Consultant Relationship Specialty Start Date End Date Charity Cook MD [address] [place] [address] PCP - General Family Medicine 01/28/18 Isabel Chan CNM [address] [place] [address] Historical LMR Provider 03/07/17 2 Susie Kirk MD [address] [place] [address], [address] [place], [place] Historical LMR Provider 03/07/17 05/27/21 Charity Cook MD [address] [place], [place] [phone] [email or web address] Insurance Assigned Provider 09/20/18 05/27/21 documented as of this encounter Additional Source Comments The information contained in this document represents components of the legal health record. It is not the complete legal health record.[facility]
--- OUTSIDE RECORDS SUMMARY | 2025-01-14 10:53 | XMS_ITS | Encounter Summary ---
Author Organization [facility] Address [address] [facility] [address] [place] [address] Phone Care Team Providers Care Salvager Helper Name Role Phone Isabel Chan Gordo MENESES Unavailable [phone] Susie Kirk MD Unavailable [phone] Charity Cook MD Primary Care Provider + Charity Cook MD Unavailable [phone] Encounter Details Date Type Department Care Team (Late st Contact Info) Description 04/25/2020 Transcribe Orders Virtual Department [address] [place] [address] Joann La PA [address] [place] [address] Menorrhagia with irregular cycle (Primary Dx) Social History Tobacco Use Types [...] documented as of this encounter Results * US PELVIS TRANSABDOMINAL PLUS TRANSVAGINAL (05/04/2020 2:54 PM EST) Anatomical Region Laterality Modality Pelvis, Uterus/Adnexa Ultrasound 05/04/2020 3:33 PM EST Impressions 05/04/2020 3:41 PM EST 1. IUD appears adequately positioned within the endometrial canal. 2. Findings consistent with 2 subserosal uterine fibroids, both measuring 1.6 cm in maximal diameter. 3. No other significant abnormalities. Narrative 05/04/2020 3:41 PM EST HISTORY: Irregular menses, menometrorrhagia, status-post IUD placement. EXAM: Transabdominal and transvaginal pelvic ultrasounds. COMPARISON: None. FINDINGS: Uterus: Uterus is anteverted. It measures 10.4 cm x 6.5 cm x 5.0 cm. Endometrial stripe is normal measuring 6 mm in diameter. The IUD is present within the endometrial canal appears adequately positioned. 2. Subserosal mildly hypoechoic masses are demonstrated within the uterus consistent with fibroids, both measure 1.9 cm in maximal diameter. Ovaries: Both ovaries are normal in size and echogenicity. Right ovary measures 2.9 cm x 2.2 cm x 2.2 cm. Left ovary measures 2.3 cm x 1.3 cm x 1.2 cm. 2.3 cm x 1.7 cm x 1.5 cm cyst or dominant follicle within the right ovary. Bilateral blood flow demonstrated to both ovaries. Other: No evidence of free fluid. Procedure Note Vincent De Los Santos MD - 05/04/2020 HISTORY: Irregular menses, menometrorrhagia, status-post IUD placement. EXAM: Transabdominal and transvaginal pelvic ultrasounds. COMPARISON: None. FINDINGS: Uterus: Uterus is anteverted. It measures 10.4 cm x 6.5 cm x 5.0 cm.Endometrial stripe is normal measuring 6 mm in diameter. The IUD ispresent within the endometrial canal appears adequately positioned. 2. Subserosal mildly hypoechoic masses are demonstrated within the uterusconsistent with fibroids, both measure 1.9 cm in maximal diameter. Ovaries: Both ovaries are normal in size and echogenicity. Right ovarymeasures 2.9 cm x 2.2 cm x 2.2 cm. Left ovary measures 2.3 cm x 1.3 cm x1.2 cm. 2.3 cm x 1.7 cm x 1.5 cm cyst or dominant follicle within theright ovary. Bilateral blood flow demonstrated to both ovaries. Other: No evidence of free fluid. IMPRESSION: 1. IUD appears adequately positioned within the endometrial canal. 2. Findings consistent with 2 subserosal uterine fibroids, both measuring1.6 cm in maximal diameter. 3. No other significant abnormalities. us Joann PASTRANA IMG US PELVIS Final Result documented in this encounter Visit Diagnoses Diagnosis Menorrhagia with irregular cycle- Primary Menorrhagia with irregular cycle documented in this encounter Additional Health Concerns [...] documented as of this encounter Care Teams Salvager Helper Relationship Specialty Start Date End Date Charity Cook MD [address] [place] [address] PCP - General Family Medicine 01/28/18 Isabel Chan CNM [address] [place] [address] Historical LMR Provider 03/07/17 2 Susie Kirk MD [address] [place] [address], [address] [place] [address] [email or web address] Historical LMR Provider 03/07/17 05/27/21 Charity Cook MD [address] [place] [address] [email or web address] Insurance Assigned Provider 09/20/18 05/27/21 documented as of this encounter Additional Source Comments The information contained in this document represents components of the legal health record. It is not the complete legal health record.[facility]
--- OUTSIDE RECORDS SUMMARY | 2025-01-14 10:54 | XMS_ITS | Clinical Summary ---
Author Organization [facility] Address [address] [place] [id number] Phone Care Team Providers Care Meterman Name Role Phone Charity Cook MD Primary Care Provider + Allergies Active Allergy Reactions Criticality Noted Date Comments Egg Nausea and/or Vomiting 06/29/2019 Latex High 09/27/2020 contact Tree Nut GI Upset 06/29/2019 Peanut Anaphylaxis High 07/06/2019 Shellfish Containing Products 2019 Medications EPINEPHrine (EPIPEN 2-TOBI) 0.3 mg/0.3 mL auto-injector as directed Injection prn for allergy 4 Active ALBUTEROL INHL 2 puffs prn Act jaya cetirizine (ZYRTEC) 10 MG tablet Take 1 tablet by mouth daily. Active Medication-Free Text Vitamin D with K 2000 UNIT Tablet, Sig: Orally Active multivitamins Chew Orally Active dextroamphetami ne/amphetamine (ADDERALL ORAL) Take by mouth. Active fluticasone propionate (FLOVENT HFA) 110 mcg/actuation inhaler Inhale 1 puff into the lungs 2 (two) times a day. Active acetylcysteine (NAC ORAL) Take by mouth. Acti ve omega-3 fatty acids-fish oil 340-1,000 mg Cap Take by mouth daily. Active triamcinolone acetonide 0.025 % ointment Apply topically 2 (two) times a day. Active fluticasone propionate (FLONASE) 50 mcg/actuation nasal spray 1 spray by Nasal route daily. Active LORazepam (ATIVAN) 0.5 MG tablet Take 0.5 mg by mouth every 6 (six) hours as needed for anxiety. Active ibuprofen (ADVIL,MOTRIN) 600 MG tablet Take 1 tablet (600 mg total) by mouth every 6 (six) hours as needed for pain (specific location in comments). 40 tablet 1 Active senna-docusate (PERICOLACE) 8.6-50 mg Take 1 tablet by mouth 2 (two) times a day. To prevent constipation 30 tablet 1 Active Active Problems Problem Noted Date Diagnosed Date Fatty liver 06/17/2020 High cholesterol 06/17/2020 Overview (06/17/2020): familial Resolved Problems Problem Noted Date Diagnosed Date Resolved Date Post-operative state 09/27/2020 021 Assessment & Plan (09/28/2020 8:01 AM EDT): Uncomplicated postoperative course overnight. Plan discharge home this morning. Instructions for discharge discussed. Pain management plan; ibuprofen, acetaminophen, as needed oxycodone for moderate-severe pain. Irregular menstrual cycle 07/08/2019 Assessment & Plan (07/08/2019 8:17 PM EST): Check labs, use the norethindrone cyclically at least Q 2 months prn no menses Encounter for preoperative s creening laboratory testing for COVID-19 virus Immunizations Immunization Administration Dates Next Due COVID-19 (Pre-03/11) Moderna Vaccine, mRNA, PF 07/20/2020,06/22/2020 COVID-19 (Pre-03/11) Pfizer Vaccine, mRNA, PF 05/26/2021 Hepatitis B Adult 10/30/1996,06/05/1996,05/01/19 96 Influenza Quadrivalent MDCK Preservative Free IM 02/07/2020 Influenza, Unspecified Formulation 02/16/2021 MMR 05/10/1999,02/27/1975 PPD Test 12/09/2015,12/07/2015 Tdap 07/12/2014,07/12/2014 Family History Medical History Relation Comments CV disease Father Heart disease Father Hyperlipidemia Father Hypertension Father Kidney disease Father Breast cancer Maternal Cousin Prostate cancer Maternal Grandfather Cancer Maternal Grandmother exact type unknown Aneurysm Mother Diabetes Mother Diabetes mellitus Mother Hyperlipidemia Mother Cancer Paternal Grandmother exact type unknown Throat cancer Unspecified Relation Status Comments Brother Alive Father Alive Maternal Cousin Maternal Grandfather Maternal Grandmother Mother Alive Paternal Grandfather Paternal Grandmother Unspecified Social History Tobacco Use Types Packs/Day Years Used Date Smoking Tobacco: Never Smokeless Tobacco: Never Alcohol Use Standard Drinks/Week Comments Not Currently 0 (1 standard drink = 0.6 oz pur e alcohol) rare Education Answer Date Recorded Are you interested in more education? Not on payton e 09/14/2022 Are you concerned about learning? Not on file 09/14/2022 No 09/14/2022 No 09/14/2022 Digital Access Answer Date Recorded No 10/15/2022 No 10/15/2022 Reliable internet access at home? Not on file 10/15/2022 Device with a working camera? Not on file Comments No Sex and Gender Information Value Date Recorded Sex Assigned at Not on file Legal Sex Female 9:30 PM EDT Gender Identity Not on file Sexual Orientation Not on file Occupation Industry Job Start Date Job End Date Working Not on file Not on file Not on file Last Filed Vital Signs Vital Sign Reading Time Taken Comments Blood Pressure 116/70 10/21/2020 10:02 AM EDT Pulse 97 09/28/2020 8:00 AM EDT Temperature 37.2 C (99 F) 09/28/2020 8:00 AM EDT Respiratory Rate 16 09/28/2020 8:00 AM EDT 1 6 Oxygen Saturation 98% 09/28/2020 8:00 AM EDT Inhaled Oxygen Concentration - - Weight 83.5 kg (184 lb) 10/21/2020 10:02 AM EDT Height 161.9 cm (5' 3.75 ) 10/21/2020 10:02 AM E DT Body Mass Index 31.83 10/21/2020 10:02 AM EDT Plan of Treatment Health Maintenance Due Date Last Done Comments DEPRESSION SCREENING 1986 HEPATITIS C SCREENING 01/17/1992 HIV ONE-TIME SCREENING (18-6 5 YEARS) 01/17/1992 COLOGUARD 2019 COLONOSCOPY 2019 COLORECTAL CANCER SCREENING 2019 FIT TEST 2019 FOBT 2019 SIGMOIDOSCOPY 2019 VIRTUAL COLONOSCOPY 2019 PAP SMEAR 12/22/2022 12/23/2019, 12/23/2019 MAMMOGRAM 01/25/2023 01/25/2021, 01/28/2018 PNEUMOCOCCAL VACCINES (50+ years) (1 of 1 - PCV) 01/17/2024 ZOSTER VACCINES (1 of 2) 01/17/2024 COVID-19 VACCINE (4 - 2023-2 5 season) 2024 05/26/2021, 07/20/2020, 06/22/2020 Adult Td,Tdap Booster 07/12/2024 07/12/2014 , 07/12/2014 LIPID PANEL 01/21/2025 01/22/2020, 09/22/2015 SMOKING STATUS SCREENING (On ce After 26 Yrs) Completed 10/21/2020 HEPATITIS A VACCINES Aged Out No long er eligible based on patient's age to complete this topic HIB VACCINES Aged Out No longer eligi ble based on patient's age to complete this topic MENINGOCOCCAL VACCINES (ACWY) Aged Out No longer eligible based on patient's age to complete this topic MENINGOCOCCAL VACCINES (B) Aged Out N o longer eligible based on patient's age to complete this topic Medical Devices Implanted Type Area Tray Drier Device Identifier Shelf Expiration Date Model / Serial / Lot Intrauterine Device Intrauterine Device Procedures Procedure Name Priority Date/Time Associated Diagnosis Comments BI MAMMOGRAM SCREENING WITH TOMOSYNTHESIS WITH CAD (BILATERAL) Routine 01/25/2021 1:08 PM EDT Breast screening PAP TEST Routine 12/23/2019 12:00 AM EDT OUTSIDE LDL Routine 09/22/2015 from Last 3 Months or Most Recently Relevant to Health Maintenance Results * BI MAMMOGRAM SCREENING WITH TOMOSYNTHESIS WITH CAD (BILATERAL) (01/25/2021 1:08 PM EDT) Anatomical Region Laterality Modality Breast Left, Breast Right, Breast Bilateral Bila teral Mammography 01/25/2021 1:31 PM EDT Impressions 01/25/2021 1:32 PM EDT No mammographic evidence of malignancy. Recommend routine annual surveillance. BI-RADS CATEGORY: 1 - Negative. DENSITY: The breast tissue is heterogeneously dense, which could obscure a lesion on mammography. Narrative 01/25/2021 1:32 PM EDT 46-year-old female with no current breast symptoms. Comparison made to previous on 01/28/2018 and as far back as 07/20/2014. Interpretation made in conjunction with computer-aided detection and tomosynthesis. The breasts are heterogeneously dense, which may obscure small masses. There are no suspicious masses, areas of architectural distortion, or suspicious clusters of microcalcifications. Procedure Note Jasbir Hutchinson MD - 01/25/2021 46-year-old female with no current breast symptoms. Comparison made toprevious on 01/28/2018 and as far back as 07/20/2014. Interpretation made inconjunction with computer-aided detection and tomosynthesis. The breasts are heterogeneously dense, which may obscure small masses. There are no suspicious masses, areas of architectural distortion, orsuspicious clusters of microcalcifications. IMPRESSION: No mammographic evidence of malignancy. Recommend routine annualsurveillance. BI-RADS CATEGORY: 1 - Negative. DENSITY: The breast tissue is heterogeneously dense, which could obscurea lesion on mammography. Yelena PASTRANA IMG MG EXAMS Final Resul t * Pap Smear (12/23/2019 12:00 AM EDT) 12/23/2019 12/24/2019 1:5 2 PM EDT Narrative SEE NARRATIVE - 12/29/2019 2:25 PM EDT [address] [id number] Mri Assistant: Kelley Dickinson MD MANAGER [place] Cytology Report FINAL DIAGNOSIS A. PAP SMEAR (SUREPATH) CE: SPECIMEN ADEQUACY: Satisfactory for evaluation; transformation zone absent/insufficient. Evaluation limited by thickness of cellular specimen. Limited by mucus/lubricant INTERPRETATION: NEGATIVE FOR INTRAEPITHELIAL LESION OR MALIGNANCY. Electronically Signed Out By: ELIZABET Dunlap(ASCP) The Pap test is a screening test primarily for squamous cancers and precursors and has associated false-negative and false-positive results. New technologies such as liquid-based preparations may decrease but will not eliminate all false-negative results. Regular sampling and follow-up of unexplained clinical signs and symptoms are recommended to minimize false negative results. PROCEDURES/ADDENDA HPV Testing (Requested) Ordered Date: 12/24/2019 A. PAP SMEAR (SUREPATH) CE: Human Papilloma Virus Test Negative for high-risk human papillomavirus types 16, 18, 45 and the Other high risk probe set (Includes 31, 33, 35, 39, 51, 52, 56, 58, 59, 66, 68) by [employer] Onclarity HR-HPV analysis. Clinical correlation is advised. This HPV test was performed at [facility], [address] [place] [address]. This test has been FDA approved for [facility] cervical cytology specimens. The accuracy and precision of this test for all other specimen sources has been verified in the Cytopathology Laboratory of the [facility] and has not been cleared or approved by the U.S. Food and Drug Administration. Clinical correlation is advised. CLINICAL HISTORY Date of Last Menstrual Period: N/A Contraceptive History: Hormonal Progesterone: oral Other Clinical Conditions: Screening Pap SPECIMEN SOURCE A: PAP SMEAR (SUREPATH) CE Patient Name: KAIT RAMIREZ : 1975 (Age: 44) Sex: F Institution: [facility] Location: [facility] Date of Collection: 12/23/2019 Date of Reported: 12/28/2019 16:20 Results to: Ashleigh Holland MD Ashleigh Holland MD CYTOLOGY ORDERABLES Edited Result - Final SEE NARRATIVE * Outside LDL (09/22/2015) LDL - External 103 50 - 250 mg/ml Historical Provider LAB BLOOD ORDERABLES Reina l Result from Last 3 Months or Most Recently Relevant to Health Maintenance Insurance [employer] [address] [place] [address] ADMINISTRATORS [employer] [facility] ADMINISTRATORS [employer] ADMINISTRATORS [employer] ADMINISTRATORS Advance Directives For more information, please contact: [phone] (9AM - 5PM [facility], Saturday-Saturday) Documents on File Type Date Recorded 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 It is not the complete legal health record.[facility]
--- OUTSIDE RECORDS SUMMARY | 2025-01-14 10:54 | XMS_ITS | Encounter Summary ---
Author Organization [facility] Address [address] [place] [address] Phone Care Team Providers Care Wellness Rn Name Role Phone Charity Cook MD Primary Care Provider + Encounter Details Date Type Department Care Team (Late st Contact Info) Description 10/30/2021 Transcribe Orders Virtual Department [address] [place] [address] Yelena Leung PA [address] [facility] [place] [address] [email or web address] Breast screening (Primary Dx) Social History Tobacco Use Types [...] documented as of this encounter Visit Diagnoses Diagnosis Breast screening- Primary Breast screening, unspecified documented in this encounter Care Teams Wellness Rn Relationship Specialty Start Date End Date Charity Cook MD [address] [place] [id number] PCP - General Family Medicine 01/28/18 documented as of this encounter Additional Source Comments The information contained in this document represents components of the legal health record. It is not the complete legal health record.[facility]
--- OUTSIDE RECORDS SUMMARY | 2025-01-14 10:54 | XMS_ITS | Patient Health Record ---
Author Organization [facility] Address [address] [place] [address] Care Team Providers Care Diamond Sizer And Sorter Name Role Phone Charity Cook Primary Care Provider Sweta aVlle Unavailable [phone] Yelena Longo Unavailable [phone] Basilio Suarez Unavailable [phone] Allergies Allergen (clinical drug ingredient) Drug/Non Drug [...] Unknown Allergy Active Reason For Referral Reason HLD, FMH heart disea se Diagnosis 1 Hypertriglyceridemia , essential (E78.1) Diagnosis 2 Hyperlipidemia, unsp ecified (E78.5) Referral Organization [facility] Referring Provider First Name Yelena Referring Provider Last Name Qing Referring Provider Speciality Family Pra ctice Referred Provider Kyle Archer Cardiol ogy Referred Provider Specialty Cardiology General Notes Sweta Roblero 01/19 08:24:01 AM > NO AUTH REQUIRED FOR BBA, Referral faxed to: [phone] Clinical Notes Provider Name: Jose Archer, Cardiology, Address1: [address] [facility], Zip: [place], [address], , Referral Priority Routine Reason atopic dermatitis [place] Location Diagnosis 1 Atopic dermatitis, u nspecified (L20.9) Referral Organization [facility] Referring Provider First Name Sweta Referring Provider Last Name Valle [facility]erred Provider Jonathan Russell(CLOSED L OCATION), Dermatology General Notes Sweta Roblero 06/20 01:19:51 PM > referral faxed to: [phone], Sweta Roblero 07/07/2024 08:17:41 AM >refaxed to: [phone] Clinical Notes Provider Name: Jonathan tomas Dermatology, Provider ID Number: , Provider UPIN: , Provider NPI: , Provider Facility: , Provider Speciality: , Address1: [address] [place] [address], Address2: [facility], Zip: [place], [address], , Appt. Date/Time: , Referral Priority Routine Reason Allergy management Diagnosis 1 Allergic rhinitis, O ther (J30.89) Referral Organization [facility] Referring Provider First Name Sweta Referring Provider Last Name Leonard Referring Provider [facility] ctice Referred Provider LESLEY MARTIN Referred Provider Specialty Allergy/Immu nology General Notes Sweta Roblero 10/18 10:13:28 AM > referral faxed to: [phone] Clinical Notes Provider Name: LESLEY GUZMAN, Provider UPIN: grp npi [id number], Provider , Provider Speciality: Allergy/Immunology, Address1: [address] [place] [address], Address2: [facility] All[facility], [facility], Zip: [place], [address], , Referral Priority Routine Reason [facility] Chiropractor f or neck pain Diagnosis 1 Pain Neck (M54.2) Referral Organization [facility] Referring Provider First Name Sweta Referring Provider Last Name Valle Referring Provider Speciality Family Pra ctice Referred Provider Specialty Chiropractor General Notes [facility], [address], [address], [place], [place], phone: [phone], fax: [phone], Sweta Roblero 01/13/2025 10:43:15 AM EDT > referral faxed to: [phone] Referral Priority Routine Medications Medication SIG (Take, Route, Frequency, Duration) Notes Start Date End Date Status hydrOXYzine HCl 25 MG Tablet 1 tablet as needed Orally Once a day; Duration: 30 days 01/06/2025 Active Xyzal Allergy 24HR 5 MG Tablet 1 tablet in the evening Orally Once a day Active EpiPen 2-Kory 0.3 MG/0.3ML Solution Auto-injector as directed intramuscularly once prn; Duration: 1 days 02/07/2022 Activ e Atorvastatin Calcium 20 MG Tablet 1 tablet Orally Once a day A ctive Phentermine HCl 37.5 MG Capsule 1 capsule Orally Once a day; Duration: 90 days 10/29/2024 Active Estradiol 0.0375 MG/24HR Patch Twice Weekly 1 patch to skin Transdermal Two times a Week; Duration: 90 days 08/04/2024 Active Wixela Inhub 250-50 MCG/ACT Aerosol Powder Breath Activated 1 puff Inhalation Twice a day; Duration: 30 days needs to schedule an appointment Active Magnesium 400 MG Tablet 1 tab PO once a day As needed Active Zoo Friends Multi Gummies 1 QD Active Clindamycin Phos-Benzoyl Perox 1.2-5 % Gel 1 application after washing in the evening Externally Once a day; Duration: 90 days 02/05/2024 Active Nystatin-Triamcinolone 862542-0.1 UNIT/GM Ointment 1 application Externally Twice a day; Duration: 30 days 08/04/2024 Active Albuterol Sulfate HFA 108 (90 Base) MCG/ACT Aerosol Solution 2 PUFFS INHALED every 4 hour prn; Duration: 90 days Acti ve Vyvanse 10 MG Capsule 1 capsule in the m orning Orally Once a day; Duration: 30 days 01/06/2025 Active Montelukast Sodium 10 MG Tablet 1 tab(s) orally once a day; Duration: 90 days 05/03/2023 Active Dupixent 200 MG/1.14ML Solution Prefilled Syringe as directed Subcutaneous Act jaya Vitamin D (Cholecalciferol) 25 MCG (1000 UT) Tablet 1 tablet QD Active Immunizations Vaccine Route Administration Date Status Comme nts TDAP history Unknown 07/12/2014 Administered TDAP >7 PURCHASED (ADACEL) IM Intramuscular 07/02/2024 Administered PREVNAR 20 PURCHASED IM Intramuscular 07/02/2024 Administered FLULAVAL PURCHASED IM Intramuscular 02/16/2021 Administere d FLUBLOK PURCHASED IM Intramuscular 03/13/2018 Administered FLUBLOK PURCHASED IM Intramuscular 03/08/2022 Administered FLUBLOK PURCHASED IM Intramuscular 02/26/2024 Administered COVID-19 Vaccine (Moderna), History Unknown 06/22/2020 Administered COVID-19 Vaccine (Moderna), History Unknown 07/20/2020 Administered COVID Vacc BIVALENT 12+ Pfizer IM Intramuscular 02/07/2022 Administered COVID Vacc 12+ Pfizer IM Intramuscular 05/26/2021 Administered lot# [id number] PER MIIS- IE Social History Social History Additional Details Category Social Info Options Details Social History 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, 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, 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 Exercise: not much, was do ing yoga Caffeine: one large cup a day Marital Status: Children: Daughter - Meghan ine 20 years old in college at [employer], 2 sons - Gabrielle age 17 and Jorge 12 Pets: Dogs:1 Church: orthodox lives in [facility] nts live with her in the summer Ed: BA Section Notes: diet: vegetarian- lots of da iry diet: vegetarian- lots of da iry diet: vegetarian- lots of da iry diet: vegetarian- lots of da iry diet: vegetarian- lots of da iry diet: vegetarian- lots of da iry diet: vegetarian- lots of da iry diet: vegetarian- lots of da iry diet: vegetarian- lots of da iry diet: vegetarian- lots of da iry diet: vegetarian- lots of da iry diet: vegetarian- lots of da iry diet: vegetarian- lots of da iry diet: vegetarian- lots of da iry diet: vegetarian- lots of da iry diet: vegetarian- lots of da iry diet: vegetarian- lots of da iry diet: vegetarian- lots of da iry diet: vegetarian- lots of da iry diet: vegetarian- lots of da iry diet: vegetarian- lots of da iry diet: vegetarian- lots of da iry diet: vegetarian- lots of da iry diet: vegetarian- lots of da iry diet: vegetarian- lots of da iry diet: vegetarian- lots of da iry diet: vegetarian- lots of da iry diet: vegetarian- lots of da iry diet: vegetarian- lots of da iry diet: vegetarian- lots of da iry diet: vegetarian- lots of da iry diet: vegetarian- lots of da iry diet: vegetarian- lots of da iry diet: vegetarian- lots of da iry diet: vegetarian- lots of da iry diet: vegetarian- lots of da iry diet: vegetarian- lots of da iry diet: vegetarian- lots of da iry diet: vegetarian- lots of da iry diet: vegetarian- lots of da iry diet: vegetarian- lots of da iry diet: vegetarian- lots of da iry diet: vegetarian- lots of da iry diet: vegetarian- lots of da iry diet: vegetarian- lots of da iry diet: vegetarian- lots of da iry diet: vegetarian- lots of da iry diet: vegetarian- lots of da iry diet: vegetarian- lots of da iry diet: vegetarian- lots of da iry diet: vegetarian- lots of da iry diet: vegetarian- lots of da iry diet: vegetarian- lots of da iry diet: vegetarian- lots of da iry diet: vegetarian- lots of da iry diet: vegetarian- lots of da iry diet: vegetarian- lots of da iry Problems Problem Type SNOMED Code ICD Code Onset Dates Problem Status W/U Status Risk Notes Problem Anxiety state (256848236) Anxiety (unspecified) (F41.9) Active confirmed Problem Constipation (96048092) Constipation, unspecified (K59.00) Active confirmed Problem Neck pain (47774000) Pain Neck (M54.2) Active confirmed Problem Adrenocortical insufficiency, other (E27.49) Active confirmed Problem Vitamin D deficiency (57008651) Vitamin D deficiency, unspecified (E55.9) Active confirmed Problem Obesity (596568974) Other obesity (E66.8) Active confirmed Problem Psychologic dyspareunia (78517048) Dyspareunia not due to a substance or known physiological condition (F52.6) Active confirmed Problem Tension-type headache (630216224) Tension-type headache, unspecified, not intractable (G44.209) Active confirmed Problem Headache disorder (511389871) Headache syndrome, other (G44.89) Active confirmed Problem Insomnia (205278129) Insomnia due to medical condition (G47.01) Active confirmed Problem Conductive hearing loss (65782673) Hearing loss, Conductive, unspecified (H90.2) Active confirmed Problem Intracranial aneurysm (disorder) (403003177) Cerebral aneurysm, nonruptured (I67.1) Active confirmed Problem Allergic rhinitis (86278998) Allergic rhinitis, Other (J30.89) Active confirmed Problem Mild intermittent asthma (617034495) Asthma Mild intermittent, uncomplicated (J45.20) Active confirmed Problem Hemorrhoids (42618182) Hemorrhoids other (K64.8) Active confirmed Problem Atopic dermatitis (86364787) Atopic dermatitis, unspecified (L20.9) Active confirmed Problem Solitary sacroiliitis (925325105) Sacroiliitis, not elsewhere classified (M46.1) Active confirmed Problem Menopause (821991530) Menopausal and female climacteric states (N95.1) Active confirmed Problem Body mass index 30.00 to 34.99 (772322697686023) BMI 32.0-32.9, adult (Z68.32) Active confirmed Problem Hysterectomy (252975211) Acquired absence of both cervix and uterus (Z90.710) Active confirmed Problem Acquired absence of uterus (436522946) Acquired absence of uterus with remaining cervical stump (Z90.711) Active confirmed Problem Food allergy (235070664) Allergy to other foods (Z91.018) Active confirmed Problem Attention deficit hyperactivity disorder (833418243) ADHD, unspecified type (F90.9) Active confirmed Problem Gastro-esophageal reflux disease without esophagitis (617364881) Gastro-esophageal reflux disease without esophagitis (K21.9) Active confirmed Problem 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, 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 confirmed Problem Premenstrual dysphoric disorder (246897) Premenstrual dysphoric disorder (F32.81) Active confirmed Problem 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 (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) Active confirmed Problem Fatty liver (687605323) Fatty Liver (K76.0) Active confirmed Vital Signs Temperature 96.8 degrees Fahrenheit 01/06/2025 Oximetry 97 01/06/2025 Blood pressure diastolic 80 mm Hg 01/06/2025 Height 63.5 in 01/06/2025 Blood pressure systolic 128 mm Hg 01/06/2025 Weight 185.2 lbs 01/06/2025 BMI 32.29 kg/m2 01/06/2025 Procedures Procedure Date Ordered Date Performed Result Body Sit e Spirometry 07/02/2024 N/A Encounters Encounter Location Date Provider Diagnosis [facility] [address] [place] [address] 01/06/2025 Sweta Valle [place] [address] [place] [address] 02/05/2024 Charity Cook [place] [address] [place] [address] 02/05/2024 Yelenaeliu Longo [place] [address] [place] [address] 02/06/2024 Yelenaeliu Longo [place] [address] [place] [address] 02/27/2024 Yelena Longo BMI 34.0-34.9, adult Z68.34 [place] [address] [place] [address] 02/28/2024 Yelena Longo ADHD, unspecified ty pe F90.9 [place] [address] [place] [address] 04/27/2024 Sweta Valle Asthma Mild intermittent, uncomplicated J45.20 [facility] [address] [place] [address] 05/08/2024 Charity Cook ADHD, unspecified ty pe F90.9 [place] [address] [place] [address] 07/02/2024 Sweta Valle [place] [address] [place] [address] 07/03/2024 Sweta Valle [place] [address] [place] [address] 07/17/2024 Sweta Valle Acne unspecified L70 .[address] [place] [address] [place] [address] 07/30/2024 Charity Cook [place] [address] [place] [address] 08/03/2024 Sweta Valle [place] [address] [place] [address] 08/04/2024 Charity Cook [place] [address] [place] [address] 08/25/2024 Sweta Valle Asthma Mild intermittent, uncomplicated J45.20 [facility] [address] [place] [address] 09/30/2024 Sweta Valle BMI 31.0-31.9, adult Z68.31 [facility] [place] [address] [place] [address] 10/29/2024 Sweta Valle [facility] [place] [address] [place] [address] 11/01/2024 Sweta Valle [place] [address] [place] [address] 12/30/2024 Sweta Valle Asthma Mild intermittent, uncomplicated J45.20 [facility] [address] [place] [address] 01/06/2025 Sweta Valle [place] [address] [place] [address] 05/08/2024 Sweta Valle No Show or Late Canc el NS.LTCX [place] [address] [place] [address] 07/02/2024 Sweta Valle Asthma Mild intermittent, uncomplicated [...] and Menopausal and female climacteric states N95.1 [facility] [address] [place] [address] 01/06/2025 Sweta Valle ADHD, unspecified ty pe F90.9 ; Anxiety (unspecified) F41.9 ; 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.01 ; Fatty Liver K76.0 and BMI 32.0-32.9, adult Z68.32 [facility] [address] [place] [address] 09/30/2024 Sweta Valle Asthma Mild intermittent, uncomplicated J45.20 ; ADHD, unspecified type F90.9 ; BMI 32.0-32.9, adult Z68.32 and Osteopenia NOS M85.[address] [facility] [address] [place] [address] 10/14/2024 Sweta Valle BMI 31.0-31.9, adult Z68.31 and Fatty Liver K76.[address] [facility] [address] [place] [address] 08/04/2024 Charity Cook Osteopenia NOS M85.8 0 ; Menopausal and female climacteric states N95.1 and Eczema NOS L25.[address] [place] [address] [place] [address] 02/05/2024 Yelena Longo Acne unspecified L70 .9 ; Asthma Mild intermittent, uncomplicated J45.20 and Hyperlipidemia, unspecified E78.5 [facility] [address] [place] [address] 02/26/2024 Yelena Longo ADHD, unspecified ty pe F90.9 ; Pain back, unspecified M54.9 ; Eczema NOS L25.9 ; BMI 34.0-34.9, adult Z68.34 and Encounter for immunization Z23 [place] [address] [place] [address] 10/29/2024 Sweta Valle BMI 32.0-32.9, adult Z68.32 [...] - Z68.31) She will look into the cisimple ulisses to track her food intake. Protein [...] fried or fatty or greasy foods. 10/29/2024 Menopausal and female climacteric states (ICD-10 - N95.1) 10/29/2024 BMI 32.0-32.9, adult (ICD-10 - Z68.32) We will increase phentermine as above. She will let us know if she can get zepbound with savings card and if it isn't we will try wegovy 01/06/2025 Anxiety (unspecified) (ICD-10 - F41.9) 01/06/2025 ADHD, unspecified type (ICD-10 - F90.9) Amphetamine-Dextr oamphetamine 10 MG Tablet twice a day - Discontinue Adderall 10mg - Start Vyvanse 10mg in the morning - Follow up in 3 months to assess efficacy 02/05/2024 Asthma Mild intermittent, uncomplicated (ICD-10 - J45.20) Stable 02/05/2024 Acne unspecified (ICD-10 - L70.9) Discussed topical treatment options. Rx sent 02/26/2024 ADHD, unspecified type (ICD-10 - F90.9) Stable 02/26/2024 Pain back, unspecified (ICD-10 - M54.9) Can book with [facility] for chiro. Instructed on how to get ppw and book with hr receptionist 05/08/2024 No Show or Late Cancel (ICD-10 - NS.LTCX) 07/02/2024 CPE (ICD-10 - Z00.00) Please allow [...] least 2x per week. Fatty fish include: Holland, Rogers, Mackeral, Sardines, Tuna, [place]wood [place], Hallibut. 6. Make sure you are getting enough protein each day. You need 0.8 to 1.5 mg/kg depending on your activity level and health. 7. Use this USDA calculator for finding calories needed per day to support current weight, as well as finding other personalized nutrient needs, like protein and vitamins. https://www.nal.u sda.gov/human-nut lhncso-mnc-mnfu-s afety/dri-calcula tor 8. Limit processed foods and [...] 13. Find ways to manage stress. Resources: https://www.[facility].[place].[facility]/olivia moise/staying-hea lthy https://diabetes. org/food-nutritio n https://nutrition source.[facility]/wp-content /uploads// UBMmsfj3191-0847. pdf My Plate https://www.Hythiam.gov/whatsonmyp late?utm_source=G oogleSEM&utm_medi um=[facility]&utm_campai gn=uplevel-mypl.. . On line Exercise https://Worldrat/exe rcise-wellness/?c mp=SVV-PSH-TGW-Ex erciseWellness-.. . https://wwwKaufmann Mercantile/HelpHive /blog/free-home-w orkouts/ https://www.nhs.u k/conditions/nhs- fitness-studio/ 07/02/2024 Asthma Mild intermittent, uncomplicated (ICD-10 - [...] Asthma has improved. Stopped wixela,doing singulair only 08/04/2024 Menopausal and female climacteric states (ICD-10 - N95.1) s 08/04/2024 Osteopenia NOS (ICD-10 - M85.80) Patient [...] Rx sent for MHT with instructions s 02/27/2024 BMI 34.0-34.9, adult (ICD-10 - Z68.34) 02/28/2024 ADHD, unspecified type (ICD-10 - F90.9) 04/27/2024 Asthma Mild intermittent, uncomplicated (ICD-10 - J45.20) 05/08/2024 ADHD, unspecified type (ICD-10 - F90.9) 07/17/2024 Acne unspecified (ICD-10 - L70.9) 08/25/2024 Asthma Mild intermittent, uncomplicated (ICD-10 - J45.20) 09/30/2024 BMI 31.0-31.9, adult (ICD-10 - Z68.31) 12/30/2024 Asthma Mild intermittent, uncomplicated (ICD-10 - J45.20) 08/04/2024 Eczema NOS (ICD-10 - L25.9) s 07/02/2024 Nonalcoholic steatohepatitis ([place]) (ICD-10 - K75.81) Continue to work with GI. Avoid alcohol, fried, fatty or greasy foods 02/05/2024 Hyperlipidemia, unspecified (ICD-10 - E78.5) Discussed statin. Advised she start 02/26/2024 Eczema NOS (ICD-10 - L25.9) Moderate/severe dyshidrotic eczema. Will switch to clobetasol ointment. Can consider kenalog injection if no resolution 01/06/2025 Insomnia due to medical condition (ICD-10 - G47.01) - Start Hydroxyzine 25mg at night as needed - Advised to journal thoughts before bed 10/29/2024 Fatty Liver (ICD-10 - K76.0) Fatty [...] Avoid fried or fatty or greasy foods. 09/30/2024 BMI 32.0-32.9, adult (ICD-10 - Z68.32) [...] intake of vitamin d rich foods. https://nutrition source.[facility]/vitamin-d/ 10/29/2024 Allergic rhinitis, Other (ICD-10 - J30.89) Stop taking sonia with zyrtec. Rec xyzal instead. Continue flonase and add pattaday drops. Will send to Dr. Martin in [place] for referral 01/06/2025 Fatty Liver (ICD-10 - K76.0) - Continue monitoring liver function - Advised to avoid fried, fatty, greasy foods - Recommended to try GABRIELLE-E supplement if available - Follow up with GI doctor for ultrasound results and barium swallow 07/02/2024 Adrenocortical insufficiency, other (ICD-10 - E27.49) 02/26/2024 BMI 34.0-34.9, adult (ICD-10 - Z68.34) Will renew phentermine rx for now 07/02/2024 MTHFR Deficiency (ICD-10 - E72.12) Food [...] vegetables (turnip greens, spinach, amari lettuce, asparagus, Herculaneum sprouts, broccoli) Beans Peanuts Snohomish seeds Fresh fruits, fruit juices Whole grains [...] loss; pale skin; mouth sores. (Source: https://nutrition source.[facility]/folic-acid /) 02/26/2024 Encounter for immunization (ICD-10 - Z23) 10/29/2024 Pain Neck (ICD-10 - M54.2) Pt is requesting referral to [facility] Chiropractor for her neck 01/06/2025 BMI 32.0-32.9, adult (ICD-10 - Z68.32) - Continue Phentermine 37mg in the morning - Combined follow-up for ADHD and weight management in 3 months 07/02/2024 Encounter for immunization (ICD-10 - Z23) [...] dairy products and cereals. Cod liver oil Rogers Swordfish Tuna fish [place] juice fortified with vitamin D Dairy and plant milks fortified with vitamin D Sardines Beef liver Egg yolk Fortified cereals (Source: https://nutrition source.[facility]/vitamin-d/ ) 07/02/2024 ADHD, unspecified type [...] and female climacteric states (ICD-10 - N95.1) 01/06/2025 Other - Resend chiropractic referral to [facility] in [place], [place] Plan Of Treatment Pending Test Test Name Order Date X ray : Spines, lumbosacral 06/22/2021 X ray : Knee, right 01/18/2020 Mammogram 01/18/2021 Mammogram 02/07/2022 Spirometry 07/24/2023 Spirometry 05/29/2023 Spirometry 05/03/2023 X ray : Spines, thoracic spine Colonoscopy 03/08/2022 Colonoscopy 02/07/2022 Colonoscopy 01/18/2021 GGTP 01/01/2020 Ultrasound : Trans Vaginal 04/22/2020 PAP, cervical; HPV Hybrid Capture High R isk DNA Probe any Dx 12/31/2016 Mammogram, routine annual screening 12/19 -ANTINUCLEAR ANTIBODIES TITER AND PATTER N 01/29/2020 FREE T3 01/01/2020 VITAMIN B12 01/18/2020 HSCRP 01/01/2020 COMPREHENSIVE METABOLIC PANL 01/18/2021 COMPREHENSIVE METABOLIC PANL 02/07/2022 COMPREHENSIVE METABOLIC PANL 10/28/2018 COMPREHENSIVE METABOLIC PANL 11/11/2018 COMPREHENSIVE METABOLIC PANL 01/06/2018 COMPREHENSIVE METABOLIC PANL 01/18/2020 COMPREHENSIVE METABOLIC PANL 01/12/2019 COMPREHENSIVE METABOLIC PANL 07/05/2022 COMPREHENSIVE METABOLIC PANL 05/03/2023 LIPID PANEL 05/03/2023 LIPID PANEL 01/12/2019 LIPID PANEL 01/18/2020 LIPID PANEL 02/07/2022 LIPID PANEL 01/18/2021 TSH WITH REFLEX TO T4 02/07/2022 TSH WITH REFLEX TO T4 01/06/2018 TSH WITH REFLEX TO T4 01/12/2019 ESTRADIOL 07/05/2022 ESTRADIOL 02/07/2022 FSH 02/07/2022 FSH 07/05/2022 LH 07/05/2022 LH 02/07/2022 PROGESTERONE 02/07/2022 PROGESTERONE 07/05/2022 TSH 01/18/2020 Vitamin D25 OH 01/18/2020 Vitamin D25 OH 01/12/2019 Vitamin D25 OH 05/03/2023 Vitamin D25 OH 02/07/2022 FREE T4 01/01/2020 CBC AUTO DIFF 01/18/2021 CBC AUTO DIFF 02/07/2022 CBC AUTO DIFF 01/12/2019 CBC AUTO DIFF 07/05/2022 CBC AUTO DIFF 05/03/2023 CBC AUTO DIFF 01/18/2020 MRI Brain W/O Contrast 02/07/2022 GGTP 11/11/2018 GGTP 10/28/2018 HOMOCYSTEINE, PLASMA 01/01/2020 MRA : Head without contrast 02/07/2022 DHEA SULFATE 01/01/2020 COMP MET PANEL 07/02/2024 Hemoglobin A1c 07/02/2024 LIPID PANEL 07/02/2024 Cortisol AM 07/02/2024 Phosphorus 07/02/2024 Alb,Hemanth,DHEAS,E2,FSH,LH,PTH,Prog,SHBG,T est-F,Test-T 02/26/2019 Clinical Information (AOE) 02/26/2019 PREGNENOLONE, LC/MS/MS 01/01/2020 Covid-19 PCR (use this one) 05/18/2021 Rapid Covid 19 05/18/2021 QUANTIFERON TB GOLD PLUS (4 TUBES) 07/05 DEXA Bone density 07/02/2024 TSH WITH REFLEX TO FT4 05/03/2023 Vitamin D 07/02/2024 PTH 07/02/2024 Next Appt Details Provider Name:Sweta Valle, 04/09/2025 04:00:00 PM, [address], [address], Insurance Providers Payer Name Payer Address Payer Phone Subscriber Number Group Number Insured Name Patient Relationship to Insured Coverage Start Date Coverage End Date [employer] (HMO) [address] [address] [place] [address] [id number] LASHONDA ARREGUIN Self - patient is the insured Medical (General) History Medical History History ICD Code Seasonal allergies Fatty liver Vitamin D deficiency Raynaud's phenomenon - hx po s LARS low titer, saw rheum, was told no f/up necessary Tennis elbow (R) - improved with myofasc ial release GERD 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
--- OUTSIDE RECORDS SUMMARY | 2025-01-14 10:54 | XMS_ITS | Encounter Summary ---
Author Organization [facility] Address [facility] [address] [place] [address] Phone Care Team Providers Care Retail Route Supervisor Name Role Phone Isabel Chan ZAIRA Unavailable [phone] Susie Kirk MD Unavailable [phone] Charity Cook MD Primary Care Provider + Charity Cook MD Unavailable [phone] Encounter Details Date Type Department Care Team (Late st Contact Info) Description 01/19/2021 Procedure Pass [facility] - [address] [place] [address] Social History Tobacco Use Types Packs/Day Years [...] documented as of this encounter Care Teams Retail Route Supervisor Relationship Specialty Start Date End Date Charity Cook MD [address] [place] [address] PCP - General Family Medicine 01/28/18 Isabel Chan CNM [address] [place] [address] Historical LMR Provider 03/07/17 2 Susie Kirk MD [address] [place] [address], 2[address] [place] [address] [email or web address] Historical LMR Provider 03/07/17 05/27/21 Charity Cook MD [address] [place] [address] Insurance Assigned Provider 09/20/18 05/27/21 documented as of this encounter Additional Source Comments The information contained in this document represents components of the legal health record. It is not the complete legal health record.[facility]
--- OUTSIDE RECORDS SUMMARY | 2025-01-14 10:54 | XMS_ITS | Encounter Summary ---
Author Organization [facility] Address [email or web address] [place] [address] Phone Care Team Providers Care Claims Clerk Name Role Phone Isabel Chan Gordo MENESES Unavailable [phone] Susie Kirk MD Unavailable [phone] Charity Cook MD Primary Care Provider + Charity Cook MD Unavailable [phone] Encounter Details Date Type Department Care Team (Late st Contact Info) Description 01/19/2021 Ancillary Orders Virtual Department [address] [place] [address] Yelena Leung PA [address] [place] [address] [email or web address] Breast screening Social History Tobacco Use Types [...] PASTRANA IMG MG EXAMS Final Resul t documented in this encounter Visit Diagnoses Diagnosis [...] documented as of this encounter Care Teams Claims Clerk Relationship Specialty Start Date End Date Charity Cook MD [address] [place] [address] PCP - General Family Medicine 01/28/18 Isabel Chan CNM [address] [place] [address] Historical LMR Provider 03/07/17 2 Susie Kirk MD [address] [place] [address], 2nd [place] [address] [email or web address] Historical LMR Provider 03/07/17 05/27/21 Charity Cook MD [address] [place] [address] Insurance Assigned Provider 09/20/18 05/27/21 documented as of this encounter Additional Source Comments The information contained in this document represents components of the legal health record. It is not the complete legal health record.[facility]
== END 2025-01-14 09:45 | disposition home or self-care (01) ==
LOC: HO.XRAY 09:44
PROVIDERS: PCP Family Medicine; Visit Provider Internal Medicine
DX: R11.2 Nausea with vomiting, unspecified (principal)
CPT/HCPCS: 74221

== ENCOUNTER → 2025-01-14 09:46 | Outpatient (BNV) | payer OTHER, SELFPAY | PROVIDERS: PCP Family Medicine; Visit Provider Radiology Diagnostic Radiology | DX: R11.2 Nausea with vomiting, unspecified (principal) | CPT/HCPCS: 74221 ==

== ENCOUNTER 2025-03-03 08:04 | Outpatient (REF) | payer OTHER, SELFPAY ==
--- NOTE | ~2025-03-03 | US_ITS ---
CLINICAL HISTORY: R11.2 - Nausea with vomiting, unspecified US abdomen complete Comparison: 11/26/2022 Findings: The visualized pancreas is normal. Liver measures 18.7 cm in length and demonstrates normal echogenicity. There is no intrahepatic bile duct dilatation. The common duct is 2 mm in diameter. The gallbladder is normal. There is no sonographic Galvez sign. The right kidney is 12 cm in length. The left kidney is 10.6 cm in length. Unremarkable kidneys. No hydronephrosis. The spleen is normal. Spleen measures 8.8 cm in length. No ascites. IMPRESSION: Hepatomegaly. This document has been electronically signed by: Teresa Rodrigues MD on 03/04/2025 12:45:15
== END 2025-03-03 08:05 | disposition home or self-care (01) ==
LOC: HO.US 08:04
PROVIDERS: PCP Family Medicine; Visit Provider Internal Medicine
DX: R10.13 Epigastric pain (principal); R11.2 Nausea with vomiting, unspecified
CPT/HCPCS: 76700

== ENCOUNTER → 2025-03-03 08:07 | Outpatient (BNV) | payer OTHER, SELFPAY | PROVIDERS: PCP Family Medicine; Visit Provider Radiology Diagnostic Radiology | DX: R16.0 Hepatomegaly, not elsewhere classified (principal) | CPT/HCPCS: 76700 ==

== ENCOUNTER 2025-03-08 15:50 | Outpatient (AMB) | payer OTHER, SELFPAY ==
--- OUTSIDE RECORDS SUMMARY | 2024-05-08 11:30 | XMS_ITS ---
Author Organization [facility] ame Address [address] [place] [address] Care Team Providers Care Claim Investigator Name Role Phone Charity Cook Primary Care Provider Sweta Valle Unavailable [phone] Yelena Longo Unavailable [phone] REASON FOR VISIT CPE Encounters Encounter Location Date Provider Diagnosis [facility] [address] [place] [address] 05/08/2024 Yelena Longo Plan Of Treatment Next Appt Details Provider Name:Sweta Valle, 04/09/2025 04:00:00 PM, [address] [place], [address], Progress Notes * LASHONDA ARREGUINDOB: [birth year] (50 yo F)Acc No.[id number]:05/08/2024 Progress Notes Patient: LASHONDA FISH Provider: Robinson Leung PA-C :1975 A ge:49 Y S ex:Female Date:05/08/2024 C HN#:[id number] Address:[address] [place] [address] [id number] Pcp:Charity Cook Subjective: * Chief Complaints: * C PE Billing Information: * Procedure Codes: Care Plan Details* * Electronic signature of Sarah Longo PA-C on 03/08/2025 at 08:10 PM EDT Sign off status: Pending * Provider: Robinson Leung PA-C Date: 1 07/09/2023 Generated for Jazmine zhou/Sunshine/Nataly on: 1 08:10 PM EDT
--- OUTSIDE RECORDS SUMMARY | 2024-09-30 12:45 | XMS_ITS ---
Author Organization [facility] ame Address [address] [place] [address] Care Team Providers Care Air Quality Specialist Name Role Phone Charity Cook Primary Care Provider Sweta Valle Unavailable [phone] Allergies Allergen (clinical drug ingredient) Drug/Non Drug Allergy documented on EMR Reaction Allergy Type Onset Date Status cantaloupe allergenic extract CANTALOUPE (uncoded) Unknown Allergy Active crab allergenic extract CRAB (uncoded) Unknown Allergy Active egg yolk (chicken) allergenic extract EGG WHITES (uncoded) Unknown Allergy Active GREEN BEANS (uncoded) Unknown Allergy Active Peanut PEANUT (uncoded) Anaphylactic shock Allergy Active Shellfish (FN) SHELLFISH (uncoded) Unknown Allergy Active TUNA (uncoded) Unknown Allergy Activ e Latex Latex Unknown Allergy Active Tree Nuts Unknown Allergy Active REASON FOR VISIT f/u weight, requesting refills on: epi-pen, adderall, estradiol, montelukast, albuterol - rx's pulled, not sent Medications Medication SIG (Take, Route, Frequency, Duration) Notes Start Date End Date Status Nystatin-Triamcinolon e 034456-4.1 UNIT/GM Ointment 1 application Externally Twice a day; Duration: 30 days 08/04/2024 Active Fluticasone-Salmetero l 113-14 MCG/ACT Aerosol Powder Breath Activated 1 puff Inhalation Twice a day; Duration: 90 days 09/30/2024 Active Wixela Inhub 250-50 MCG/ACT Aerosol Powder Breath Activated INHALE 1 PUFF INTO THE LUNGS TWICE A DAY FOR 30 DAYS; Duration: 30 Not-Taking/IA N Magnesium TABLET 1 PO QD Act jaya Zoo Friends Multi Gummies 1 QD Active ZyrTEC Allergy 10 MG Tablet 1 tab(s) orally once a day Active Phentermine HCl 15 MG Capsule 1 capsule Orally Once a day; Duration: 90 days 07/02/2024 Active Clindamycin Phos-Benzoyl Perox 1.2-5 % Gel 1 application after washing in the evening Externally Once a day; Duration: 90 days 02/05/2024 Active Amphetamine-Dextroamp hetamine 10 MG Tablet 1 tab(s) orally 2 times a day; Duration: 90 days 09/30/2024 Active Estradiol 0.0375 MG/24HR Patch Twice Weekly 1 patch to skin Transdermal Two times a Week; Duration: 90 days 08/04/2024 Active EpiPen 2-Kory 0.3 MG/0.3ML Solution Auto-injector as directed intramuscularly once prn; Duration: 1 days 02/07/2022 Active Atorvastatin Calcium 20 MG Tablet 1 tablet Orally Once a day Active Vitamin D (Cholecalciferol) 25 MCG (1000 UT) Tablet 1 tablet QD Active Albuterol Sulfate HFA 108 (90 Base) MCG/ACT Aerosol Solution 2 PUFFS INHALED every 4 hour prn; Duration: 90 days Active Montelukast Sodium 10 MG Tablet 1 tab(s) orally once a day; Duration: 90 days 05/03/2023 Active Social History Social History Additional Details Category Social Info Options Details Social History Ed: HERI lives in [facility] [place] live with her in the summer Religious: holiness Pets: Dogs:1 Children: Daughter - Meghan blackburn 20 years old in college at [employer], 2 sons - Shelton age 17 and Jorge 12 Marital Status: Caffeine: one large cup a day Exercise: not much, was do ing yoga 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, 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, 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 Section Notes: diet: vegetarian- lots of da robbin Vital Signs Temperature 97.0 degrees Fahrenheit 10/01/19 25 Blood pressure systolic 140 mm Hg 10/01/19 25 Blood pressure diastolic 88 mm Hg 025 Height 63.5 in 09/30/2024 Weight 187.8 lbs 09/30/2024 BMI 32.74 kg/m2 09/30/2024 Oximetry 99 09/30/2024 Encounters Encounter Location Date Provider Diagnosis [facility] [address] [place], [place] [address] 09/30/2024 Sweta Valle Asthma Mild intermittent, uncomplicated J45.20 ; ADHD, unspecified type F90.9 ; BMI 32.0-32.9, adult Z68.32 and Osteopenia NOS M85.80 Assessments Encounter Date Diagnosis (ICD Code) Assessment Notes Treatment Notes Treatment Clinical Notes Section Notes 09/30/2024 Asthma Mild intermittent, uncomplicated (ICD-10 - J45.20) 1. In the last 4 week, how often did your asthma symptoms (such as wheezing, coughing, chest tightness, or shortness of breath) prevent you from getting as much done at work, school, or home? 4 2. During the last 4 week, how often did you have shortness of breath? 4 3. During the last 4 week, how often did you wake up at night because of your asthma? 3-4 4. During the last 4 week, how often did you use your rescue inhaler or nebulizer (quick-relief medication)? it is 5. How would you rate your asthma control during the past week? 3 ACT score: 19 Not controlled. Will restart wixela. 09/30/2024 ADHD, unspecified type (ICD-10 - F90.9) Rarely takes her medication. End of school year and feels good. Disc how mindfulness can help her adhd without medications. Non-medication approaches to supporting attention reviewed in detail including: daily aerobic exercise, rosa in AM; regular sleep and eating schedule; Avoidance of MJ, ETOH and other recreational drugs; limiting technology exposure; and mindfulness practice, even 10 a day, rosa in AM. 09/30/2024 BMI 32.0-32.9, adult (ICD-10 - Z68.32) PRescriber to reach out to pharm rep for help. It has already been approved but having difficulty at the pharmacy. 09/30/2024 Osteopenia NOS (ICD-10 - M85.80) make sure to eat calcium rich foods 2-3x per day. weight bearing exercise. Please increase your vitamin d to 2000 units per day. Increase your exposure to sunlight by 15-30 minutes a day and increase your intake of vitamin d rich foods. [email or web address]/[email or web address] -d/ Plan Of Treatment Medication Medication Name Sig Start Date Stop Date Notes Fluticasone-Salmeterol 113-14 MCG/ACT Aerosol Powder Breath Activated 1 puff Inhalation Twice a day; Duration: 90 days 09/30/2024 Amphetamine-Dextroamphetami ne 10 MG Tablet 1 tab(s) orally 2 times a day; Duration: days 09/30/2024 Estradiol 0.0375 MG/24HR Patch Twice Weekly 1 patch to skin Transdermal Two times a Week; Duration: 90 days 08/04/2024 EpiPen 2-Kory 0.3 MG/0.3ML Solution Auto-injector as directed intramuscularly once prn; Duration: 02/07/2022 Albuterol Sulfate HFA 108 (90 Base) MCG/ACT Aerosol Solution 2 PUFFS INHALED every 4 hour prn; Duration: days Montelukast Sodium 10 MG Tablet 1 tab(s) orally once a day; Duration: days 05/03/2023 Treatment Notes Assessment Notes Asthma Mild intermittent, uncomplicated 1. In the last 4 week, how often did your asthma symptoms (such as wheezing, coughing, chest tightness, or shortness of breath) prevent you from getting as much done at work, school, or home? 4 2. During the last 4 week, how often did you have shortness of breath? 4 3. During the last 4 week, how often did you wake up at night because of your asthma? 3-4 4. During the last 4 week, how often did you use your rescue inhaler or nebulizer (quick-relief medication)? it is 5. How would you rate your asthma control during the past week? 3 ACT score: 19 Not controlled. Will restart wixela. ADHD, unspecified type Rarely takes her medication. End of school year and feels good. Disc how mindfulness can help her adhd without medications. Non-medication approaches to supporting attention reviewed in detail including: daily aerobic exercise, rosa in AM; regular sleep and eating schedule; Avoidance of MJ, ETOH and other recreational drugs; limiting technology exposure; and mindfulness practice, even 10 a day, rosa in AM. BMI 32.0-32.9, adult PRescriber to reach out to pharm rep for help. It has already been approved but having difficulty at the pharmacy. Osteopenia NOS make sure to eat calcium rich foods 2-3x per day. weight bearing exercise. Please increase your vitamin d to 2000 units per day. Increase your exposure to sunlight by 15-30 minutes a day and increase your intake of vitamin d rich foods. [email or web address]/ Next Appt Details Follow Up: 3 months adhd, we ight, 1-2 weeks meal planning, Reason: Provider Name:Sweta Valle, 04/09/2025 04:00:00 PM, [address], [place], [id number], History and Physical Notes * Examination Category Sub-Category Detail Notes Category Not es General Examination HEENT: Head - NC/AT, clear c onjunctiva Neck, Thyroid : supple Lungs: No use of accessory muscles, no audible wheezes, no stridor Extremities: no clubbing, no rose a General Appearance: Well appearing and i n no acute distress Skin Lips and nail beds p ink Neurologic Exam: non-focal exam Musculoskeletal Normal gait and stat ion Progress Notes * KAIT ARREGUINDOB: [birth year] (50 yo F)Acc No.[id number]:09/30/2024 Progress Note Patient: KAIT FISH Provider: Cleo Valle MD :1975 A ge:49 Y S ex:Female Date:09/30/2024 Address:[address] [place] [address] [phone] Pcp:Charity Cook Subjective: * Chief Complaints: * F /u weightRequesting refills on: epi-pen, adderall, estradiol, montelukast, albuterol - rx's pulled, not sent * HPI: I nterim History: Kait, a 49-year-old female patient presenting today for follow-up weight adhd: 40 adhd, feels like she is worse, hard time relaxing at the end of the day, way longer than it use to, no recent med change except estrogen patch, takes magnesium at night but holds it b/c of diarrhea, misses 2nd dose of adderall a lot weight: thinking a referral to [facility] weight management, on phenteramine, no cp/palpitations/sob/n/v/d/abd pain. * ROS: S ee HPI. Other systems reviewed and noncontributory except for as noted above. 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 * Surgical History: wisdom teeth 1991 hysterectomy 09/2020 Surgical History verified. * Hospitalization/Major Diagno stic Procedure: Denies Past Hospitalization. Hospitalization Verified. * Family History: F ather: alive 76 yrs, high cholesterolCongestive Heart failure. M other: alive 79 yrs, high cholesterol, diagnosed with Diabetes. M aternal Grand Father: Prostate cancer, diagnosed with Cancer. M aternal Grand Mother: bladder cancer, diagnosed with Cancer. P aternal Grand Mother: diagnosed with Cancer. 1 brother(s) - healthy. 2 son(s) , 1 daughter(s) - healthy. . F amily History Verified.. Maternal 1st cousin with stage 4 breast ca in 30s paternal aunt schizophrenia, 1st cousin bipolar, other cousin might be bpd Mother: anyeursm Father: Afib, pacemaker. * Social History: Tabitha graff: in [place], parents live with her in the summer. Ed: BA. Smoking: no . M arital Status: . Children: Daughter - Bonnie 20 years old in college at [employer], 2 sons - Shelton age 17 and Jorge 12. 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 Religious: holiness. Exercise: not much, was doing yoga. Caffeine: one large cup a day. Pets: Dogs:1. Social History Verified. diet: vegetarian- lots of dairy. * Medications: T akingAtorvastatin Calcium 20 MG Tablet 1 tablet Orally Once a day Vitamin D (Cholecalciferol) 25 MCG (1000 UT) Tablet 1 tablet QD Magnesium TABLET 1 PO QD Zoo Friends Multi Gummies 1 QD ZyrTEC Allergy 10 MG Tablet 1 tab(s) orally once a day Albuterol Sulfate HFA 2 PUFFS INHALED QID PRN Amphetamine-Dextroamphetamine 10 MG Tablet 1 tab(s) orally 2 times a day Phentermine HCl 15 MG Capsule 1 capsule Orally Once a day Clindamycin Phos-Benzoyl Perox 1.2-5 % Gel 1 application after washing in the evening Externally Once a day Estradiol 0.0375 MG/24HR Patch Twice Weekly 1 patch to skin Transdermal Two times a Week Nystatin-Triamcinolone 454776-0.1 UNIT/GM Ointment 1 application Externally Twice a day Montelukast Sodium 10 MG Tablet 1 tab(s) orally once a day EpiPen 2-Kory 0.3 MG/0.3ML Solution Auto-injector as directed intramuscularly once prn Taking Atorvastatin Calcium 20 MG Tablet 1 tablet Orally Once a day Taking Vitamin D (Cholecalciferol) 25 MCG (1000 UT) Tablet 1 tablet QD Taking Magnesium TABLET 1 PO QD Taking Zoo Friends Multi Gummies 1 QD Taking ZyrTEC Allergy 10 MG Tablet 1 tab(s) orally once a day Taking Albuterol Sulfate HFA 2 PUFFS INHALED QID PRN Taking Amphetamine-Dextroamphetamine 10 MG Tablet 1 tab(s) orally 2 times a day Taking Phentermine HCl 15 MG Capsule 1 capsule Orally Once a day Taking Clindamycin Phos-Benzoyl Perox 1.2-5 % Gel 1 application after washing in the evening Externally Once a day Taking Estradiol 0.0375 MG/24HR Patch Twice Weekly 1 patch to skin Transdermal Two times a Week Taking Nystatin-Triamcinolone 396651-0.1 UNIT/GM Ointment 1 application Externally Twice a day Taking Montelukast Sodium 10 MG Tablet 1 tab(s) orally once a day Taking EpiPen 2-Kory 0.3 MG/0.3ML Solution Auto- injector as directed intramuscularly once prn Not-Taking/PRNWixela Inhub 250-50 MCG/ACT Aerosol Powder Breath Activated INHALE 1 PUFF INTO THE LUNGS TWICE A DAY FOR 30 DAYS Not-Taking/PRN Wixela Inhub 250-50 MCG/ACT Aerosol Powder Breath Activated INHALE 1 PUFF INTO THE LUNGS TWICE A DAY FOR 30 DAYS DiscontinuedTriamcinolone Acetonide 0.1 % Cream 1 ulisses applied topically 3 times a day Clobetasol Propionate 0.05 % Ointment 1 application Externally Twice a day Medication List reviewed and reconciled with the patientDiscontinued Triamcinolone Acetonide 0.1 % Cream 1 ulisses applied topically 3 times a day Discontinued Clobetasol Propionate 0.05 % Ointment 1 application Externally Twice a day Medication List reviewed and reconciled with the patient * Allergies: P EANUT: Anaphylactic shockTree NutsEGG WHITESCRABTUNAGREEN BEANSCANTALOUPELatexSHELLFISHyesAllergies Verified. Objective: * Vitals: I nitials:me, Ht: 63.5 in, Wt: 187.8 lbs, BMI: 32.74 Index, Temp: 97.0 F, Temp Route: T, HR: 97 /min, PulseOx: 99, BP: 140/88 mm Hg. * Examination: G eneral Examination: General Appearance: W ell appearing and in no acute distress. S kin L ips and nail beds pink. H EENT: H ead - NC/AT, clear conjunctiva. N liss, Thyroid : s upple. L ungs: N o use of accessory muscles, no audible wheezes, no stridor. E xtremities: n o clubbing, no edema . N eurologic Exam: n on-focal exam. M usculoskeletal N ormal gait and station. Assessment: * Assessment: 1. A sthma Mild intermittent, uncomplicated - J45.20 (Primary) 2 . A DHD, unspecified type - F90.9 3 . B CA 32.0-32.9, adult - Z68.32 4 .?Osteopenia NOS - M85.80 Plan: * Treatment: 2. A DHD, unspecified type Refill Amphetamine-Dextroamphetamine Tablet, 10 MG, 1 tab(s), orally, 2 times a day, 90 days, 180 Tablet, Refills 0. Notes: Rarely takes her medication. End of school year and feels good. Disc how mindfulness can help her adhd without medications. Non-medication approaches to supporting attention reviewed in detail including: daily aerobic exercise, rosa in AM; regular sleep and eating schedule; Avoidance of MJ, ETOH and other recreational drugs; limiting technology exposure; and mindfulness practice, even 10 a day, rosa in AM. ? 3. B CA 32.0-32.9, adult Notes: PRescriber to reach out to pharm rep for help. It has already been approved but having difficulty at the pharmacy. 4. O steopenia NOS Refill Estradiol Patch Twice Weekly, 0.0375 MG/24HR, 1 patch to skin, Transdermal, Two times a Week, 90 days, 28, Refills 1. Notes: make sure to eat calcium rich foods 2-3x per day. weight bearing exercise. Please increase your vitamin d to 2000 units per day. Increase your exposure to sunlight by 15-30 minutes a day and increase your intake of vitamin d rich foods. [email or web address] * Procedure Codes: 9 9214 Office Visit 30-39 [id number] Complex e/m visit add on * Follow Up: 3 months adhd, weight, 1-2 weeks meal planning Billing Information: * Procedure Codes: 05504 Office Visit 30-39 Mins. G2211 Complex e/m visit add on. Care Plan Details* * Electronic signature of Lucrecia Valle MD on 03/08/2025 at 08:10 PM EDT Sign off status: Pending * Provider: Cleo Valle MD Date: 0 09/30/2024 Generated for Jazmine zhou/Sunshine/Edgaritting on: 1 08:10 PM EDT
--- OUTSIDE RECORDS SUMMARY | 2024-10-14 10:00 | XMS_ITS ---
Author Organization [facility] ame Address [address] [place] [address] Care Team Providers Care Hospital Security Officer Name Role Phone Charity Cook Primary Care Provider Sweta Valle Unavailable [phone] Allergies Allergen (clinical drug ingredient) Drug/Non Drug [...] Nuts Unknown Allergy Active REASON FOR VISIT meal plan (IH) Medications Medication SIG (Take, Route, Frequency, Duration) Notes Start Date End Date Status Atorvastatin Calcium 20 MG Tablet 1 tablet Orally Once a day A ctive Magnesium TABLET 1 PO QD Act jaya Vitamin D (Cholecalciferol) 25 MCG (1000 UT) Tablet 1 tablet QD Active Zepbound 2.5 MG/0.5ML Solution Auto-injector 0.5 mL Subcutaneous once a week; Duration: 90 days 10/14/2024 Active Wixela Inhub 250-50 MCG/ACT Aerosol Powder Breath Activated INHALE 1 PUFF INTO THE LUNGS TWICE A DAY FOR 30 DAYS; Duration: 30 Active Fluticasone-Salmeterol 113-14 MCG/ACT Aerosol Powder Breath Activated 1 puff Inhalation Twice a day; Duration: 90 days 09/30/2024 Active EpiPen 2-Kory 0.3 MG/0.3ML Solution Auto-injector as directed intramuscularly once prn; Duration: 1 days 02/07/2022 Activ e Estradiol 0.0375 MG/24HR Patch Twice Weekly 1 patch to skin Transdermal Two times a Week; Duration: 90 days 08/04/2024 Active Amphetamine-Dextroampheta mine 10 MG Tablet 1 tab(s) orally 2 times a day; Duration: 90 days 09/30/2024 Active Montelukast Sodium 10 MG Tablet 1 tab(s) orally once a day; Duration: 90 days 05/03/2023 Active Albuterol Sulfate HFA 108 (90 Base) MCG/ACT Aerosol Solution 2 PUFFS INHALED every 4 hour prn; Duration: 90 days Acti ve Nystatin-Triamcinolone 963993-5.1 UNIT/GM Ointment 1 application Externally Twice a day; Duration: 30 days 08/04/2024 Active ZyrTEC Allergy 10 MG Tablet 1 tab(s) orally once a day A ctive Clindamycin Phos-Benzoyl Perox 1.2-5 % Gel 1 application after washing in the evening Externally Once a day; Duration: 90 days 02/05/2024 Active Phentermine HCl 15 MG Capsule 1 capsule Orally Once a day; Duration: 90 days 07/02/2024 Active Zoo Friends Multi Gummies 1 QD Active Social History Social History Additional Details Category Social Info Options Details Social History Ed: HERI lives in [place] [facility] [place] live with her in the summer 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 Pets: Dogs:1 Children: Daughter - Meghan blackburn 20 years old in college at [employer], 2 sons - Shelton age 17 and Jorge 12 Marital Status: Caffeine: one large cup a day Exercise: not much, was do ing yoga 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, 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, 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 Section Notes: diet: vegetarian- lots of da iry Problems Problem Type SNOMED Code ICD Code Onset Dates Problem Status W/U Status Risk Notes Problem Fatty liver (303605015) Fatty Liver (K76.0) Active confirmed Vital Signs Temperature 98.4 degrees Fahrenheit 10/15/19 25 Blood pressure systolic 130 mm Hg 10/15/19 25 Blood pressure diastolic 86 mm Hg 025 Height 63.5 in 10/14/2024 Weight 183 lbs 10/14/2024 BMI 31.91 kg/m2 10/14/2024 Oximetry 98 10/14/2024 Encounters Encounter Location Date Provider Diagnosis [facility] [address] [place] [address] 10/14/2024 Sweta Valle BMI 31.0-31.9, adult Z68.31 and Fatty Liver K76.0 Assessments Encounter Date Diagnosis (ICD Code) Assessment Notes Treatment Notes Treatment Clinical Notes Section Notes 10/14/2024 BMI 31.0-31.9, adult (ICD-10 - Z68.31) She will look into the SemiLev ulisses to track her food intake. Protein list and Elaine meal planning pamphlet handout given to pt Discussed the following goals: Carb goal per day: Breakfast - 15-30g Lunch and dinner - 30-45g Snacks 15-20g Calorie goal to lose weight: 1805 calories a day Protein per day: 66-85g Water: 8-12 cups a day restart zepbound 2.5 mg weekly Patient started on a new medication today. Reviewed side effects. Discussed not to drive, make life altering decisions, take of children, ect, until they know how they will react to the medication 10/14/2024 Fatty Liver (ICD-10 - K76.0) Fatty liver: Foods to include: - Fruits and vegetables: A wide variety of colorful options, including berries, leafy greens, and cruciferous vegetables. - Whole grains: Brown rice, quinoa, oats, and whole wheat bread. - Lean protein: Poultry, fish (especially fatty fish like salmon), beans, and lentils. - Healthy fats: Avocados, olive oil, nuts, and seeds. - Coffee: Up to three cups per day may be beneficial. Foods to limit or avoid: - Saturated and trans fats: Red meat, processed meats, fried foods, and baked goods made with saturated fats. - Added sugars: Sugary drinks, candy, and processed foods with added sugars. - Alcohol: Avoid or limit alcohol consumption. - Excessive grains: Limit intake to 3-4 servings per day. Avoid fried or fatty or greasy foods. Plan Of Treatment Medication Medication Name Sig Start Date Stop Date Notes Zepbound 2.5 MG/0.5ML Solution Auto-injector 0.5 mL Subcutaneous once a week; Duration: 90 days 10/14/2024 Treatment Notes Assessment Notes BMI 31.0-31.9, adult She will look into the SemiLev ulisses to track her food intake. Protein list and Elaine meal planning pamphlet handout given to pt Discussed the following goals: Carb goal per day: Breakfast - 15-30g Lunch and dinner - 30-45g Snacks 15-20g Calorie goal to lose weight: 1805 calories a day Protein per day: 66-85g Water: 8-12 cups a day restart zepbound 2.5 mg weekly Patient started on a new medication today. Reviewed side effects. Discussed not to drive, make life altering decisions, take of children, ect, until they know how they will react to the medication Fatty Liver Fatty liver: Foods to include: - Fruits and vegetables: A wide variety of colorful options, including berries, leafy greens, and cruciferous vegetables. - Whole grains: Brown rice, quinoa, oats, and whole wheat bread. - Lean protein: Poultry, fish (especially fatty fish like salmon), beans, and lentils. - Healthy fats: Avocados, olive oil, nuts, and seeds. - Coffee: Up to three cups per day may be beneficial. Foods to limit or avoid: - Saturated and trans fats: Red meat, processed meats, fried foods, and baked goods made with saturated fats. - Added sugars: Sugary drinks, candy, and processed foods with added sugars. - Alcohol: Avoid or limit alcohol consumption. - Excessive grains: Limit intake to 3-4 servings per day. Avoid fried or fatty or greasy foods. Next Appt Details Follow Up: schedule for adhd , add zf/u zepbound to DEC appt, Reason: Provider Name:Sweta Valle, 04/09/2025 04:00:00 PM, [address], [place], [id number], History and Physical Notes * HPI (History of Present Illness) Category Sub-Category Detail Notes Category Not es Constitutional Exercise walking and this week she has been hiking Examination Category Sub-Category Detail Notes Category Not es General Examination HEENT: Head - NC/AT, clear c onjunctiva Neck, Thyroid : supple Lungs: No use of accessory muscles, no audible wheezes, no stridor Extremities: no clubbing, no rose a General Appearance: Well appearing and i n no acute distress Skin Lips and nail beds p ink Neurologic Exam: non-focal exam Breasts : R axilla: 1cm mobile , rubbery lymph node Musculoskeletal Normal gait and stat ion Progress Notes * KAIT ARREGUINDOB: [birth year] (50 yo F)Acc No.[id number]:10/14/2024 Progress Note Patient: KAIT FISH Provider: Cleo Valle MD :1975 A ge:49 Y S ex:Female Date:10/14/2024 Address:[address] [place] [id number] Pcp:Charity Cook Subjective: * Chief Complaints: * m eal plan (IH) * HPI: I nterim History: Kait, a 49-year-old female patient presenting today to discuss meal planning eating better portion sizes, more fruits/veggies, more water not exercising. C onstitutional: c/o Exercise w alking and this week she has been hiking.? * ROS: S ee HPI. Other systems reviewed and noncontributory except for as noted above. 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 * Surgical History: wisdom teeth 1992 hysterectomy 09/2020 Surgical History verified. * Hospitalization/Major [...] pacemaker. * Social History: Tabitha graff: in [place], parents live with her in the summer. Ed: BA. Smoking: no . M arital Status: . Children: Daughter - Bonnie 20 years old in college at [employer], 2 sons - Shelton age 17 and Jorge 12. 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 Exercise: not much, was doing yoga. Caffeine: [...] Tablet 1 tab(s) orally once a day Phentermine HCl 15 MG Capsule 1 capsule Orally Once a day Clindamycin Phos- Benzoyl Perox 1.2-5 % Gel 1 application after washing in the evening Externally Once a day Nystatin-Triamcinolone 681620-1.1 UNIT/GM Ointment 1 application Externally Twice a day Albuterol Sulfate HFA 108 (90 Base) MCG/ACT Aerosol Solution 2 PUFFS INHALED every 4 hour prn Montelukast Sodium 10 MG Tablet 1 tab(s) orally once a day Amphetamine-Dextroamphetamine 10 MG Tablet 1 tab(s) orally 2 times a day Estradiol 0.0375 MG/24HR Patch Twice Weekly 1 patch to skin Transdermal Two times a Week EpiPen 2-Kory 0.3 MG/0.3ML Solution Auto-injector as directed intramuscularly once prn Fluticasone-Salmeterol 113-14 MCG/ACT Aerosol Powder Breath Activated 1 puff Inhalation Twice a day Wixela Inhub 250-50 MCG/ACT Aerosol Powder Breath Activated INHALE 1 PUFF INTO THE LUNGS TWICE A DAY FOR 30 DAYS Medication List reviewed and reconciled with the patientTaking Atorvastatin Calcium 20 MG Tablet 1 tablet Orally Once a day Taking Vitamin D (Cholecalciferol) 25 MCG (1000 UT) Tablet 1 tablet QD Taking Magnesium TABLET 1 PO QD Taking Zoo Friends Multi Gummies 1 QD Taking ZyrTEC Allergy 10 MG Tablet 1 tab(s) orally once a day Taking Phentermine HCl 15 MG Capsule 1 capsule Orally Once a day Taking Clindamycin Phos-Benzoyl Perox 1.2-5 % Gel 1 application after washing in the evening Externally Once a day Taking Nystatin-Triamcinolone 032031-9.1 UNIT/GM Ointment 1 application Externally Twice a day Taking Albuterol Sulfate HFA 108 (90 Base) MCG/ACT Aerosol Solution 2 PUFFS INHALED every 4 hour prn Taking Montelukast Sodium 10 MG Tablet 1 tab(s) orally once a day Taking Amphetamine-Dextroamphetamine 10 MG Tablet 1 tab(s) orally 2 times a day Taking Estradiol 0.0375 MG/24HR Patch Twice Weekly 1 patch to skin Transdermal Two times a Week Taking EpiPen 2-Kory 0.3 MG/0.3ML Solution Auto-injector as directed intramuscularly once prn Taking Fluticasone-Salmeterol 113-14 MCG/ACT Aerosol Powder Breath Activated 1 puff Inhalation Twice a day Taking Wixela Inhub 250-50 MCG/ACT Aerosol Powder Breath Activated INHALE 1 PUFF INTO THE LUNGS TWICE A DAY FOR 30 DAYS Medication List reviewed and reconciled with the patient * Allergies: P EANUT: Anaphylactic shockTree NutsEGG WHITESCRABTUNAGREEN BEANSCANTALOUPELatexSHELLFISHyesAllergies Verified. Objective: * Vitals: I nitials:TW, Ht: 63.5 in, Wt: 183 lbs, BMI: 31.91 Index, Temp: 98.4 F, Temp Route: T, HR: 86 /min, PulseOx: 98, BP: 130/86 mm Hg. * Examination: G eneral Examination: General Appearance: W ell appearing and in no acute distress. S kin L ips and nail beds pink. H EENT: H ead - NC/AT, clear conjunctiva. N liss, Thyroid : s upple. B reasts : R axilla: 1cm mobile, rubbery lymph node. L ungs: No use of accessory muscles, no audible wheezes, no stridor. E xtremities: n o clubbing, no edema . N eurologic Exam: n on-focal exam. M usculoskeletal N ormal gait and station. Assessment: * Assessment: 1. B MT 31.0-31.9, adult - Z68.31 (Primary) 2 . F atty Liver - K76.0 ? Plan: * Treatment: 2. F atty Liver Notes: Fatty liver: Foods to include: - Fruits and vegetables: A wide variety of colorful options, including berries, leafy greens, and cruciferous vegetables. - Whole grains: Brown rice, quinoa, oats, and whole wheat bread. - Lean protein: Poultry, fish (especially fatty fish like salmon), beans, and lentils. - Healthy fats: Avocados, olive oil, nuts, and seeds. - Coffee: Up to three cups per day may be beneficial. Foods to limit or avoid: - Saturated and trans fats: Red meat, processed meats, fried foods, and baked goods made with saturated fats. - Added sugars: Sugary drinks, candy, and processed foods with added sugars. - Alcohol: Avoid or limit alcohol consumption. - Excessive grains: Limit intake to 3-4 servings per day. Avoid fried or fatty or greasy foods. * Procedure Codes: 9 9214 Office Visit 30-39 [id number] Complex e/m visit add on * Follow Up: s chedule for adhd, add zf/u zepbound to DEC appt Billing Information: * Procedure Codes: 54151 Office Visit 30-39 Mins. G2211 Complex e/m visit add on. Care Plan Details* * Electronic signature of Lucrecia Valle MD on 03/08/2025 at 08:10 PM EDT Sign off status: Pending * Provider: Cleo Valle MD Date: 0 10/14/2024 Generated for Jazmine zhou/Sunshine/eTransmitting on: 1 08:10 PM EDT
--- OUTSIDE RECORDS SUMMARY | 2024-10-29 10:15 | XMS_ITS ---
Author Organization [facility] ame Address [address] [place] [address] Care Team Providers Care Business Analyst Intern Name Role Phone Charity Cook Primary Care Provider Sweta Valle Unavailable [phone] Allergies Allergen (clinical drug ingredient) Drug/Non Drug [...] Allergy Active Tree Nuts Unknown Allergy Active Reason For Referral Reason Allergy management Diagnosis 1 Allergic rhinitis, O ther (J30.89) Referral Organization [facility] Referring Provider First Name Sweta Referring Provider Last Name Leonard Referring Provider Speciality Family Pra ctice Referred Provider LESLEY MARTIN Referred Provider Specialty Allergy/Immu nology General Notes Sweta Roblero 10/18 10:13:28 AM > referral faxed to: [phone] Clinical Notes Provider Name: LESLEY GUZMAN, Provider UPIN: grp npi [id number], Provider , Provider Speciality: Allergy/Immunology, Address1: [address] [place] [address], Address2: [facility], [facility], [facility], Zip: [place], [address], , Referral Priority Routine REASON FOR VISIT discuss Zepbound (doxy)- CE, Zepbound not covered by insurance, having a bit of allergy flare sincemid September -lots of eye irritation, needs new rx for estradiol- if possible supply, needs referral to chiro- [facility] of [facility] chiropractic, no access to vitals Medications Medication SIG (Take, Route, Frequency, Duration) Notes Start Date End Date Status EpiPen 2-Kory 0.3 MG/0.3ML Solution Auto-injector as directed intramuscularly once prn; Duration: 1 days 02/07/2022 Active Amphetamine-Dextroamph etamine 10 MG Tablet 1 tab(s) orally 2 times a day; Duration: 90 days 09/30/2024 Active Wixela Inhub 250-50 MCG/ACT Aerosol Powder Breath Activated INHALE 1 PUFF INTO THE LUNGS TWICE A DAY FOR 30 DAYS; Duration: 30 Active Zepbound 2.5 MG/0.5ML Solution Auto-injector 0.5 mL Subcutaneous once a week; Duration: 90 days not started 10/14/2024 Active Nystatin-Triamcinolone 409017-1.1 UNIT/GM Ointment 1 application Externally Twice a day; Duration: 30 days 08/04/2024 Active Albuterol Sulfate HFA 108 (90 Base) MCG/ACT Aerosol Solution 2 PUFFS INHALED every 4 hour prn; Duration: 90 days Active Phentermine HCl 15 MG Capsule 1 capsule Orally Once a day; Duration: 90 days 07/02/2024 Active Clindamycin Phos-Benzoyl Perox 1.2-5 % Gel 1 application after washing in the evening Externally Once a day; Duration: 90 days 02/05/2024 Active Montelukast Sodium 10 MG Tablet 1 tab(s) orally once a day; Duration: 90 days 05/03/2023 Active Phentermine HCl 37.5 MG Capsule 1 capsule Orally Once a day; Duration: 90 days 10/29/2024 Active Zepbound 2.5 MG/0.5ML Solution Auto-injector 0.5 mL Subcutaneous once a week; Duration: 90 days 10/29/2024 Active ZyrTEC Allergy 10 MG Tablet 1 tab(s) orally once a day Active Magnesium 400 MG Tablet 1 tab PO once a day As needed Active Zoo Friends Multi Gummies 1 QD Active Estradiol 0.0375 MG/24HR Patch Twice Weekly 1 patch to skin Transdermal Two times a Week; Duration: 90 days 08/04/2024 Active Atorvastatin Calcium 20 MG Tablet 1 tablet Orally Once a day Active Vitamin D (Cholecalciferol) 25 MCG (1000 UT) Tablet 1 tablet QD Active Aida Allergy 180 MG Tablet 1 tablet Swallow whole with water; do not take with fruit juices. Orally Once a day As needed Active Social History Social History Additional Details Category Social Info Options Details Social History Ed: HERI lives in [place] with her in the summer Sabianism: restorationism Pets: Dogs:1 Children: Daughter - Meghan blackburn 20 years old in college at [employer], 2 sons - Shelton age 17 [...] Problem Status W/U Status Risk Notes Problem Neck pain (92556788) Pain Neck (M54.2) Active confirmed Vital Signs Height 63.5 in 10/29/2024 Weight 185 lbs 10/29/2024 BMI 32.25 kg/m2 10/29/2024 Encounters Encounter Location Date Provider Diagnosis [facility] [address] [place] [address] 10/29/2024 Sweta Valle BMI 32.0-32.9, adult Z68.32 ; Menopausal and female climacteric states N95.1 ; Fatty Liver K76.0 ; Allergic rhinitis, Other J30.89 and Pain Neck M54.2 Assessments Encounter Date Diagnosis (ICD Code) Assessment Notes Treatment Notes Treatment Clinical Notes Section Notes 10/29/2024 BMI 32.0-32.9, adult (ICD-10 - Z68.32) We will increase phentermine as above. She will let us know if she can get zepbound with savings card and if it isn't we will try wegovy 10/29/2024 Menopausal and female climacteric states (ICD-10 - N95.1) 10/29/2024 Fatty Liver (ICD-10 - K76.0) Fatty liver: [...] Avoid fried or fatty or greasy foods. 10/29/2024 Allergic rhinitis, Other (ICD-10 - J30.89) Stop taking aida with zyrtec. Rec xyzal instead. Continue flonase and add pattaday drops. Will send to Dr. Martin in [place] for referral 10/29/2024 Pain Neck (ICD-10 - M54.2) Pt is requesting referral to [facility] for her neck Plan Of Treatment Medication Medication Name Sig Start Date Stop Date Notes Phentermine HCl 37.5 MG Capsule 1 capsule Orally Once a day; Duration: 90 days 10/29/2024 Zepbound 2.5 MG/0.5ML Solution Auto-injector 0.5 mL Subcutaneous once a week; Duration: 90 days 10/29/2024 Estradiol 0.0375 MG/24HR Patch Twice Weekly 1 patch to skin Transdermal Two times a Week; Duration: 90 days 08/04/2024 Treatment Notes Assessment Notes BMI 32.0-32.9, adult We will increase phentermine as above. She will let us know if she can get zepbound with savings card and if it isn't we will try wegovy Fatty Liver Fatty liver: Foods to include: [...] Avoid fried or fatty or greasy foods. Allergic rhinitis, Other Stop taking aida with zyrtec. Rec xyzal instead. Continue flonase and add pattaday drops. Will send to Dr. Martin in [place] for referral Pain Neck Pt is requesting ref erral to [facility] Chiropractor for her neck Referrals Referral Date Details 10/29/2024 10/29/2024, Allergy management, LESLEY MARTIN Next Appt Details Follow Up: 3 months fu bmi, phenteramine, +/- glp1, Reason: Provider Name:Sweta Wei Valle, 04/09/2025 04:00:00 PM, [address], [place], [address], History and Physical Notes * HPI (History of Present Illness) Category Sub-Category Detail Notes Category Not es Dermatology She is having a n allergy flare. SHe takes zyrtec which usually works but is not helping at present so she added aida in the morning, zaditor eye drops and flonase Interim History -She is on phentermine. Doing well. Has been on it since 08/2023 -Lost 11lbs since then Examination Category Sub-Category Detail Notes Category Not es General Examination HEENT: Head - NC/AT ,clear conjunctiva, handling secretions normally, speaking in clear sentences Neck, Thyroid : freely moving, no ob vious goiter Lungs: Unlabored, no use of accessory muscles, no audible wheezes, no stridor, no cough General Appearance: Well appearing and i n no acute distress, video encounter Skin Lips pink, skin well perfused, no cyanosis or jaundice, no obvious rash Chest: normal shape and exp ansion Mental Status Exam mood ok, insight goo d, eye contact appropriate Consultation Request Notes Referral Date Referring Provider Referred Provider Not es 10/29/2024 Sweta Valle DAVID Allergy man agement Progress Notes * KAIT ARREGUINDOB: [birth year] (50 yo F)Acc No.[id number]:10/29/2024 Patient: KAIT FISH Provider: Cleo Valle MD :1975 A ge:49 Y S ex:Female Date:10/29/2024 Address:[address] [place] [address], [place], [id number] Pcp:Charity Cook Subjective: * Chief Complaints: * d iscuss Zepbound (doxy)- CEZepbound not covered by insurancehaving a bit of allergy flare since mid September -lots of eye irritationNeeds new rx for estradiol- if possible supplyneeds [facility] * HPI: I nterim History: Kait, 49-year-old presents today to discuss zepbound. -She is on phentermine. Doing well. Has been on it since 08/2023 -Lost 11lbs since then. D ermatology: She is having an allergy flare. SHe takes zyrtec which usually works but is not helping at present so she added aida in the morning, zaditor eye drops and flonase. * ROS: S ee HPI. Other systems reviewed and noncontributory except for as noted above. 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 * Surgical History: wisdom teeth 1992 hysterectomy 09/2020 Surgical History verified. * Hospitalization/Major Diagno stic Procedure: No Hospitalization Documented. Hospitalization Verified. * Family History: F ather: [...] pacemaker. * Social History: Tabitha graff: in [place], parents live with her in the summer. Ed: BA. Smoking: no . M arital Status: . Children: Daughter - Bonnie 20 years old in college at [employer], 2 sons - Shelton age 17 and Jorge 12. 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 Sabianism: restorationism. Exercise: not much, was doing yoga. Caffeine: one large cup a day. Pets: Dogs:1. Social History Verified. diet: vegetarian- lots of dairy. * Medications: T akingAllegra Allergy 180 MG Tablet 1 tablet Swallow whole with water; do not take with fruit juices. Orally Once a day As neededAtorvastatin Calcium 20 MG Tablet 1 tablet Orally Once a day Vitamin D (Cholecalciferol) 25 MCG (1000 UT) Tablet 1 tablet QD Magnesium 400 MG Tablet 1 tab PO once a day As neededZoo Friends Multi Gummies 1 QD ZyrTEC Allergy 10 MG Tablet 1 tab(s) orally once a day Phentermine HCl 15 MG Capsule 1 capsule Orally Once a day Clindamycin Phos-Benzoyl Perox 1.2-5 % Gel 1 application after washing in the evening Externally Once a day Nystatin- Triamcinolone 120053-6.1 UNIT/GM Ointment 1 application Externally Twice a [...] Solution Auto-injector as directed intramuscularly once prn Wixela Inhub 250-50 MCG/ACT Aerosol Powder Breath Activated INHALE 1 PUFF INTO THE LUNGS TWICE A DAY FOR 30 DAYS Zepbound 2.5 MG/0.5ML Solution Auto-injector 0.5 mL Subcutaneous once a week , Notes to Pharmacist: not startedTaking Aida Allergy 180 MG Tablet 1 tablet Swallow whole with water; do not take with fruit juices. Orally Once a day As neededTaking Atorvastatin Calcium 20 MG Tablet 1 tablet Orally Once a day Taking Vitamin D (Cholecalciferol) 25 MCG (1000 UT) Tablet 1 tablet QD Taking Magnesium 400 MG Tablet 1 tab PO once a day As neededTaking Zoo Friends Multi Gummies 1 QD Taking ZyrTEC Allergy 10 MG Tablet 1 tab(s) orally once a day Taking Phentermine HCl 15 MG Capsule 1 capsule Orally Once a day Taking Clindamycin Phos-Benzoyl Perox 1.2-5 % Gel 1 application after washing in the evening Externally Once a day Taking Nystatin-Triamcinolone 744798-1.1 UNIT/GM Ointment 1 application Externally Twice a [...] Auto-injector as directed intramuscularly once prn Taking Wixela Inhub 250-50 MCG/ACT Aerosol Powder Breath Activated INHALE 1 PUFF INTO THE LUNGS TWICE A DAY FOR 30 DAYS Taking Zepbound 2.5 MG/0.5ML Solution Auto-injector 0.5 mL Subcutaneous once a week , Notes to Pharmacist: not startedDiscontinuedFluticasone-Salmeterol 113-14 MCG/ACT Aerosol Powder Breath Activated 1 puff Inhalation Twice a day Medication List reviewed and reconciled with the patientDiscontinued Fluticasone-Salmeterol 113-14 MCG/ACT Aerosol Powder Breath Activated 1 puff Inhalation Twice a day Medication List reviewed and reconciled with the patient * Allergies: P EANUT: Anaphylactic shockTree NutsEGG WHITESCRABTUNAGREEN BEANSCANTALOUPELatexSHELLFISHyesAllergies Verified. Objective: * Vitals: I nitials:CE, Ht: 63.5 in, Wt: 185 lbs, BMI: 32.25 Index. * Examination: G eneral Examination: General Appearance: W ell appearing and in no acute distress, video encounter. S kin L ips pink, skin well perfused, no cyanosis or jaundice, no obvious rash. H EENT: H ead - NC/AT,clear conjunctiva, handling secretions normally, speaking in clear sentences. N liss, Thyroid : f reely moving, no obvious goiter. C hest: n ormal shape and expansion. L ungs: U nlabored, no use of accessory muscles, no audible wheezes, no stridor, no cough. M ental Status Exam m ood ok, insight good, eye contact appropriate.? Assessment: * Assessment: 1. B AK 32.0-32.9, adult - Z68.32 (Primary) 2 . M enopausal and female climacteric states - N95.1 3 . F atty Liver - K76.0 4 . A llergic rhinitis, Other - J30.89 5 . P ain Neck - M54.2 Plan: * Treatment: 2. M enopausal and female climacteric states Refill Estradiol Patch Twice Weekly, 0.0375 MG/24HR, 1 patch to skin, Transdermal, Two times a Week, 90 days, 26, Refills 3. 3. F atty Liver Notes: Fatty liver: Foods [...] Avoid fried or fatty or greasy foods. 4. A llergic rhinitis, Other Notes: Stop taking aida with zyrtec. Rec x yzal instead. Continue flonase and add pattaday drops. Will send to Dr. Martin in [place] for referral ? Referral To:LESLEY MARTIN Allergy/Immunology Reason:Allergy management 5. P ain Neck Notes: Pt is requesting referral to [facility] Chiropractor for her neck * Procedure Codes: 9 9214 Office Visit 30-39 [id number] Complex e/m visit add on * Follow Up: 3 months fu bmi, phenteramine, +/- glp1 Billing Information: * Procedure Codes: 35998 Office Visit 30-39 Mins. G2211 Complex e/m visit add on. * Electronic signature of Lucrecia Valle MD on 03/08/2025 at 08:10 PM EDT Sign off status: Pending * Provider: Cleo Valle MD Date: 0 10/29/2024 Generated for Jazmine zhou/Sunshine/Edgaritting on: 1 08:10 PM EDT
--- OUTSIDE RECORDS SUMMARY | 2024-12-31 12:45 | XMS_ITS ---
Author Organization [facility] Address [address] [place] [address] Care Team Providers Care Database Development Project Manager Name Role Phone Charity Cook Primary Care Provider [phone] Sweta Valle Unavailable [phone] REASON FOR VISIT f/u ADHD (IH), FU zepbound Encounters Encounter Location Date Provider Diagnosis [facility] [address] [place] [address] 12/31/2024 Sweta Valle Plan Of Treatment Next Appt Details Provider Name:Sweta Valle, 04/09/2025 04:00:00 PM, [address] [place], [address], Progress Notes * LASHONDA ARREGUINDOB: [birth year] (50 yo F)Acc No.[id number]:12/31/2024 Progress Note Patient: Robinson VIRK LASHONDA Provider: Cleo Valle MD :1975 A ge:49 Y S ex:Female Date:12/31/2024 Address:[address] [place] [address] [place] Pcp:Charity Cook Subjective: * Chief Complaints: * f /u ADHD (IH)FU zepbound Billing Information: * Procedure Codes: Care Plan Details* * Electronic signature of Lucrecia Valle MD on 03/08/2025 at 08:09 PM EDT Sign off status: Pending * Provider: Cleo Valle MD Date: 0 12/31/2024 Generated for Jazmine zhou/Sunshine/Nataly on: 1 08:09 PM PHONG
--- NOTE | 2025-03-08 16:11 | A.OFFVIS_ITS ---
Vital Signs 03/08/25 16:12 Height 5 ft 3.75 in Weight 184 lb 11.958 oz BMI 32.0 BP 116/76 Blood Pressure Location Rt brachial Position Sitting Pulse 98 Intake Visit Reasons: 2m Intake Note: Patient in office today in follow up of labs, US, and barium swallow. CC: Patient denies any new GI symptoms or concerns. Allergies shellfish derived Allergy (Mild, Verified 03/08/25 16:22) Gastrointestinal Upset dupilumab (From [place]) Allergy (Unknown, Verified 03/08/25 16:22) Swelling tree nut Allergy (Verified 03/08/25 16:22) Anaphylaxis enviromental Allergy (Mild, Uncoded 12/30/24 12:58) Itchy Eyes, sneezing, wheezing peanuts Allergy (Mild, Uncoded 12/30/24 12:58) Anaphylaxis eggs Allergy (Unknown, Uncoded 12/30/24 12:58) Gastrointestinal Upset HPI Comments Details: This is a 47-year-old female presents to the office today for follow up for rectal bleeding and fatty liver. Initial visit 03/23/2022: Patient states that for the last few years, ordered of, she has noticed blood streaked on stool and on wiping. This is often associated with hard stool, although has sometimes seen and with the soft stool as well. Does not have any abdominal pain, nausea, vomiting, diarrhea, melena with this. Denies any unintentional weight loss. Family history is pertinent for polyps in father. Patient is unsure of his age of diagnosis. In addition, has been told she has fatty liver disease for the last few years. Most recent LFTs have significantly elevated transaminases with ALT to ALT ratio 2-1 consistent with [place]. Risk factors include obesity, hyperlipidemia, family history of diabetes. 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 Surgical history: Hysterectomy 2020 Colonoscopy 05/03/2022: 6 mm hyperplastic polyp in the sigmoid colon. Adequate preparation. Large internal hemorrhoids. 05/09/23: Patient reports that she continues to see intermittent red blood, but obviously is reassured that this is likely from hemorrhoids as initially expected. Results of recent workup for elevated transaminases also reviewed. Ultrasound consistent with fatty liver. In addition, labs show normal INR, mildly high ferritin with normal saturation, normal A1c, LARS positive but anti liver kidney and anti smooth muscle antibody negative. Patient is not immune to hepatitis-A 08/31/22: Continues with intermittent BRBPR even without straining. Occurs at least once a week. Otherwise no acute GI complaints. LFTs from Jun reviewed transaminases more or less unchanged. Pt has not been able to take Vit E regularly. 11/28/22: Continues with intermittent BRBPR despite taking anusol suppositories. However on further review pt did not complete 5-7 day course but instead took those sporadically PRN. Has been taking fiber. Took Vit E x 3 months. Labs reviewed and LFts continue to be elevated. However reassuringly Fib 4 is low. 12/30/23: Here for video televisit. No acute GI issues. Has been working on her weight and now weighs 185# Labs reviewed, persistent elevation of LFTs, as well as abnormal cholesterol. Has not been started on her statin yet. Vitamin-D remains exceedingly low despite high-dose supplementation. Patient says that she has always had issues with absorbing vitamin-D . Recently started on magnesium and B complex for headaches by Neurology. Previous magnesium supplement would give her diarrhea, but now switched to magnesium glycinate. 12/30/24: Here for 1 year follow up. Reports increased nausea rosa at night which goes away with tums and occ omeprazole. Assoc with abd discomfort. Sometimes has loose stools. Unsure if post prandial since meal times are variable. Also taking a new multivitamin unsure of Herminio and Mg content. 03/08/25: Here for follow up after testing. Labs reviewed, LFTs unchanged. Lipids better! Barium swallow normal. US abd with hepatomegaly but no morphological changes to suggest fibrosis at this time. Pt herself without any acute GI sx. [facility] Medical History Aneurysm Migraine headache without aura Hypersomnia Snoring Migraine Chronic headaches TMJ (temporomandibular joint disorder) Cervicalgia Hyperlipemia Anxiety Depression Sleep problem Asthma Surgical History Hx of colonoscopy H/O: hysterectomy Dema teeth extracted Family History Mother Aneurysm Hyperlipidemia Father Hyperlipidemia Skin cancer Atrial fibrillation Daughter Hyperlipidemia Son SVT (supraventricular tachycardia) Eunfn-Amhuezitx-Ksfmb (WPW) syndrome Social History Are you a primary career and guidance counselor to a significant other at home: No Do you presently have visiting nurse or other home services: No Alcohol intake: never Patient Tobacco Use Status: Never used Tobacco Review of Systems Const All systems reviewed & are unremarkable except as noted in HPI and below Physical Exam Exam Exam: No apparent distress Nonicteric Abdomen soft, nondistended Alert and oriented x3, normal gait Vital Signs: Last Vital Signs Pulse 98 03/08/25 16:12 BP 116/76 03/08/25 16:12 BMI result Body Mass Index 32.0 Assessment & Plan Assessment & Plan (1) Elevated liver enzymes: Code(s): R74.8 - Abnormal levels of other serum enzymes Category: Medical (2) Fatty liver disease, nonalcoholic: Code(s): K76.0 - Fatty (change of) liver, not elsewhere classified Category: Medical Plan Reviewed that LFTs likely 2/2 fatty liver as previously discussed. Congratulated on control of hyperlipidemia. Not prediabetic. BMI remains high at 32. Reviewed at least 10% TBW loss as well as 150 mins/week of moderate intensity exercise. GLP-1A may not get approved in the absence of diabetes. Follow up 1 year Medications: New famotidine 20 mg PO DAILY PRN 90 tabs 0RF heartburn famotidine 20 mg PO DAILY PRN 90 tabs 0RF heartburn Discontinued omeprazole Discontinued Reason: Doctor's Order 20 mg PO DAILY 90 caps 0RF Coding Level of Care Code Est Pt Level 4 (98364) Diagnoses Elevated liver enzymes R74.8 Fatty liver disease, nonalcoholic K76.0
[2025-03-08 16:12] VITALS: BP 116/76; PULSE 98; BMI 32.0
--- OUTSIDE RECORDS SUMMARY | 2025-03-08 20:09 | XMS_ITS | Encounter Summary ---
Author Organization [facility] Address [address] [facility] [address] [place] [address] Phone Care Team Providers Care Electronics Manufacturer Name Role Phone Isabel Chan Gordo MENESES Unavailable [phone] Susie Kirk MD Unavailable [phone] Charity Cook MD Primary Care Provider + Charity Cook MD Unavailable [phone] Encounter Details Date Type Department Care Team (Late st Contact Info) Description 09/04/2020 Prep for Surgery [facility] Obstetrics - Virtual Department [address] [place] [address] Ashleigh Holland MD [address] [facility] [address] [place] [address] [email or web address] Menorrhagia with irregular cycle (Primary Dx); Pre-operative [...] EDT) WBC 10.89 4.00 - 11.00 K/uL [facility] RBC 4.63 3.72 - 5.30 M/uL [facility] HGB 14.7 10.6 - 15.5 g/dL [facility] HCT 43.1 32.0 - 45.0 % [facility] PLT 336 140 - 430 K/uL [facility] MCV 93.1 78.0 - 97.0 fL [facility] MCH 31.7 25.0 - 33.0 pg [facility] MCHC 34.1 32.0 - 36.0 g/dL [facility] RDW 11.9 11.0 - 16.0 % [facility] MPV 10.8 8.4 - 12.8 fl [facility] NRBC 0.00 0 /100 WBCs [facility] ABSOLUTE NRBC 0.00 0 K/uL [facility] Blood 09/26/2020 12:1 1 PM EDT 09/26/2020 12:20 PM EDT Ashleigh Holland MD LAB BLOOD ORDERABLES Final Result [address] [address] * Type and Screen (ABO,Rh,Antibody Screen) (09/26/2020 12:11 PM EDT) ABO/Rh AB Positive [facility] Antibody Screen Negative [facility] Expiration Date of Sample 09/29/2020,2 359 [facility] Resulting Agency [facility] Blood 09/26/2020 12:1 1 PM EDT 09/26/2020 12:19 PM EDT us Ashleigh Holland MD BLOOD BANK TEST ORDERABLES Final Result [address] [address] documented in this encounter Visit Diagnoses Diagnosis [...] documented as of this encounter Care Teams Electronics Manufacturer Relationship Specialty Start Date End Date Charity Cook MD [address] [place] [phone] [email or web address] PCP - General Family Medicine 01/28/18 Isabel Chan CNM [address] [place] [address] Historical LMR Provider 03/07/17 2 Susie Kirk MD [address] [place] [address], [address] [place] [address] [email or web address] Historical LMR Provider 03/07/17 05/27/21 Charity Cook MD [address] [place] [address] [email or web address] Insurance Assigned Provider 09/20/18 05/27/21 documented as of this encounter Additional Source Comments The information contained in this document represents components of the legal health record. It is not the complete legal health record.[facility]
--- OUTSIDE RECORDS SUMMARY | 2025-03-08 20:10 | XMS_ITS | Encounter Summary ---
Author Organization [facility] Address [facility] [address] [place] [address] Phone Care Team Providers Care Tractor Mechanic Helper Name Role Phone Isabel Chan ZAIRA Unavailable [phone] Susie Kirk MD Unavailable [phone] Charity Cook MD Primary Care Provider + Charity Cook MD Unavailable [phone] Encounter Details Date Type Department Care Team (Late st Contact Info) Description 09/27/2020 Procedure Pass [place] Admitting Dept - Virtual Department [address] [place] [address] [phone] Social History Tobacco Use Types Packs/Day Years [...] 10:33 PM EDT Aleyda Shaffer, ANTON * [place] Suicide Severity Rating Scale (Screener/Recent Self-Report) Question [...] documented as of this encounter Care Teams Tractor Mechanic Helper Relationship Specialty Start Date End Date Charity Cook MD [address] [place] [address] PCP - General Family Medicine 01/28/18 Isabel Chan CNM [address] [place] [address] Historical LMR Provider 03/07/17 2 Susie Kirk MD [address] [place] [address], [address] Floor [place], [place] Historical LMR Provider 03/07/17 05/27/21 Charity Cook MD [address] [place], [place] [id number] [email or web address] Insurance Assigned Provider 09/20/18 05/27/21 documented as of this encounter Additional Source Comments The information contained in this document represents components of the legal health record. It is not the complete legal health record.[facility]
--- OUTSIDE RECORDS SUMMARY | 2025-03-08 20:10 | XMS_ITS | Encounter Summary ---
Author Organization [facility] Address [address] [facility] [address] [place] [address] Phone Care Team Providers Care School Cafeteria Cook Head Name Role Phone Isabel Chan Gordo MENESES Unavailable [phone] Susie Kirk MD Unavailable [phone] Charity Cook MD Primary Care Provider + Charity Cook MD Unavailable [phone] Encounter Details Date Type Department Care Team (Late st Contact Info) Description 04/25/2020 Transcribe Orders Virtual Department [address] [place] [address] Joann La PA [address] [place] [address] Menorrhagia with irregular cycle (Primary Dx) Social [...] documented as of this encounter Care Teams School Cafeteria Cook Head Relationship Specialty Start Date End Date Charity Cook MD [address] [place] [address] PCP - General Family Medicine 01/28/18 Isabel Chan CNM [address] [place] [address] Historical LMR Provider 03/07/17 2 Susie Kirk MD [address] [place] [address], 2[address] [place] [address] [email or web address] Historical LMR Provider 03/07/17 05/27/21 Charity Cook MD [address] [place] [address] [email or web address] Insurance Assigned Provider 09/20/18 05/27/21 documented as of this encounter Additional Source Comments The information contained in this document represents components of the legal health record. It is not the complete legal health record.[facility]
--- OUTSIDE RECORDS SUMMARY | 2025-03-08 20:10 | XMS_ITS | Encounter Summary ---
Author Organization [facility] Address [address] [place] [address] Phone Care Team Providers Care Candy Catcher Name Role Phone Isabel Chan Gordo MENESES Unavailable [phone] Susie Kirk MD Unavailable [phone] Charity Cook MD Primary Care Provider + Charity Cook MD Unavailable [phone] Encounter Details Date Type Department Care Team (Latest Contact Info) Description 05/18/2021 Transcribe Orders Virtual Department [address] [place] [address] Rafa De Leon MD, MPH [address] [place] [address] [email or web address] Exposure to COVID-19 virus (Primary [...] COVID Testing Status In-house testing being performed [facility] Symptomatic? NO [facility] Other 05/18/2021 2:47 PM EST 05/18/2021 9:22 PM EST us Rafagaetano De Leon MD, MPH BODY FLUIDS AND STOOLS ORDERABLES Final Result [address] [address] documented in this encounter Visit Diagnoses Diagnosis [...] documented as of this encounter Care Teams Candy Catcher Relationship Specialty Start Date End Date Charity Cook MD [address] [place] [address] [email or web address] PCP - General Family Medicine 01/28/18 Isabel Chan CNM [address] [place] [address] Historical LMR Provider 03/07/17 2 Susie Kirk MD [address] [place] [address], 2nd [place] [address] [email or web address] Historical LMR Provider 03/07/17 05/27/21 Charity Cook MD [address] [place], [place] [id number] [email or web address] Insurance Assigned Provider 09/20/18 05/27/21 documented as of this encounter Additional Source Comments The information contained in this document represents components of the legal health record. It is not the complete legal health record.[facility]
--- OUTSIDE RECORDS SUMMARY | 2025-03-08 20:11 | XMS_ITS | Patient Health Record ---
Author Organization [facility] ame Address [address] [place] [address] Care Team Providers Care Archival Records Clerk Name Role Phone Charity Cook Primary Care Provider [phone] Sweta Valle Unavailable [phone] Yelena Longo Unavailable [phone] Allergies Allergen (clinical drug ingredient) Drug/Non Drug [...] Unknown Allergy Active Reason For Referral Reason atopic dermatitis [place] Location Diagnosis 1 Atopic dermatitis, u nspecified (L20.9) Referral [facility] Referring Provider First Name Sweta Referring Provider Last Name Leonard [facility] Referred Provider Jonathan Russell(CLOSED L OCATION), Dermatology General Notes Sweta Roblero 06/20 01:19:51 PM > referral faxed to: [phone] Heidi 07/07/2024 08:17:41 AM >refaxed to: [phone] Clinical Notes Provider Name: Marci Looney, Provider ID Number: , Provider UPIN: , Provider NPI: , Provider Facility: , Provider Speciality: , Address1: [address] [place] [address] [address], Address2: [facility], Zip: [place], [address], , Appt. Date/Time: , Referral Priority Routine Reason Allergy management Diagnosis 1 Allergic rhinitis, O ther (J30.89) Referral [facility] Referring Provider First Name Sweta Referring Provider Last Name Leonard Referring Provider [facility] ctice Referred Provider LESLEY MARTIN Referred Provider Specialty Allergy/Immu nology General Notes Sweta Roblero 10/18 10:13:28 AM > referral faxed to: [phone] Clinical Notes Provider Name: LESLEY GUZMAN, Provider UPIN: grp npi [id number], Provider , Provider Speciality: Allergy/Immunology, Address1: [address] [place] [address] [address], Address2: [facility], [facility], Zip: [place], [address], , Referral Priority Routine Reason [facility] f or neck pain Diagnosis 1 Pain Neck (M54.2) Referral [facility] Referring Provider First Name Sweta Referring Provider Last Name Leonard Referring Provider [facility] ctice Referred Provider Specialty Chiropractor General Notes [facility], [address], [address], [place], [place], phone: [phone], fax: [phone], Sweta Roblero 01/13/2025 10:43:15 AM EDT > referral faxed to: [phone] Referral Priority Routine Medications Medication SIG (Take, [...] tablet Orally Once a day A ctive Estradiol 0.0375 MG/24HR Patch Twice Weekly 1 patch to skin Transdermal Two times a Week; Duration: 90 days 08/04/2024 Active Amphetamine-Dextroampheta mine 10 MG Tablet 1 tablet Orally Twice a day; Duration: 90 days 03/05/2025 Active Magnesium 400 MG Tablet 1 tab PO once a day As needed Active Zoo Friends Multi Gummies 1 QD Active Clindamycin Phos-Benzoyl Perox 1.2-5 % Gel 1 application after washing in the evening Externally Once a day; Duration: 90 days 02/05/2024 Active Nystatin-Triamcinolone 847525-1.1 UNIT/GM Ointment 1 application Externally Twice a day; Duration: 30 days 08/04/2024 Active Albuterol Sulfate HFA 108 (90 Base) MCG/ACT Aerosol Solution 2 PUFFS INHALED every 4 hour prn; Duration: 90 days Acti ve Montelukast Sodium 10 MG Tablet 1 tab(s) orally once a day; Duration: 90 days 05/03/2023 Active Vyvanse 10 MG Capsule 1 capsule in the m orning Orally Once a day; Duration: 30 days 01/26/2025 Active Dupixent 200 MG/1.14ML Solution Prefilled Syringe as directed Subcutaneous Act jaya Wixela Inhub 250-50 MCG/ACT Aerosol Powder Breath Activated 1 puff Inhalation Twice a day; Duration: 30 days needs to schedule an appointment Active Phentermine HCl 37.5 MG Capsule 1 capsule Orally Once a day; Duration: 90 days 01/26/2025 Active Vitamin D (Cholecalciferol) 25 MCG (1000 UT) Tablet 1 tablet QD Active Immunizations Vaccine Route Administration Date Status Comme nts COVID Vacc BIVALENT 12+ Pfizer IM Intramuscular 02/07/2022 Administered COVID-19 Vaccine (Moderna), History Unknown 06/22/2020 Administered COVID-19 Vaccine (Moderna), History Unknown 07/20/2020 Administered COVID Vacc 12+ Pfizer IM Intramuscular 05/26/2021 Administered lot# [id number] PER CTIS- IE FLUBLOK PURCHASED IM Intramuscular 03/13/2018 Administered FLUBLOK PURCHASED IM Intramuscular 03/08/2022 Administered FLUBLOK PURCHASED IM Intramuscular 02/26/2024 Administered FLULAVAL PURCHASED IM Intramuscular 02/16/2021 Administere d PREVNAR 20 PURCHASED IM Intramuscular 07/02/2024 Administered TDAP >7 PURCHASED (ADACEL) IM Intramuscular 07/02/2024 Administered TDAP history Unknown 07/12/2014 Administered Social History Social History Additional Details Category Social Info Options Details Social History 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, 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, 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 Exercise: not much, was do ing yoga Caffeine: one large cup a day Marital Status: Children: Daughter - Meghan blackburn 20 years old in college at [employer], 2 sons - Gabrielle age 17 and Jorge 12 Pets: Dogs:1 Buddhism: orthodox lives in [place] live with her in the summer [...] W/U Status Risk Notes Problem Anxiety state (358014346) Anxiety (unspecified) (F41.9) Active confirmed Problem Constipation (75981239) Constipation, unspecified (K59.00) Active confirmed Problem Neck pain (63128285) Pain Neck (M54.2) Active confirmed Problem Adrenocortical insufficiency, other (E27.49) Active confirmed Problem Vitamin D deficiency (90256575) Vitamin D deficiency, unspecified (E55.9) Active confirmed Problem Obesity (287383374) Other obesity (E66.8) Active confirmed Problem Psychologic dyspareunia (46233542) Dyspareunia not due to a substance or known physiological condition (F52.6) Active confirmed Problem Tension-type headache (139327010) Tension-type headache, unspecified, not intractable (G44.209) Active confirmed Problem Headache disorder (883562319) Headache syndrome, other (G44.89) Active confirmed Problem Insomnia (755917208) Insomnia due to medical condition (G47.01) Active confirmed Problem Conductive hearing loss (87909151) Hearing loss, Conductive, unspecified (H90.2) Active confirmed Problem Intracranial aneurysm (disorder) (813174116) Cerebral aneurysm, nonruptured (I67.1) Active confirmed Problem Allergic rhinitis (67035414) Allergic rhinitis, Other (J30.89) Active confirmed Problem Mild intermittent asthma (867987230) Asthma Mild intermittent, uncomplicated (J45.20) Active confirmed Problem Hemorrhoids (15841810) Hemorrhoids other (K64.8) Active confirmed Problem Atopic dermatitis (91160921) Atopic dermatitis, unspecified (L20.9) Active confirmed Problem Solitary sacroiliitis (387680981) Sacroiliitis, not elsewhere classified (M46.1) Active confirmed Problem Menopause (206534304) Menopausal and female climacteric states (N95.1) Active confirmed Problem Body mass index 30.00 to 34.99 (153084786029320) BMI 32.0-32.9, adult (Z68.32) Active confirmed Problem Hysterectomy (505011073) Acquired absence of both cervix and uterus (Z90.710) Active confirmed Problem Acquired absence of uterus (756573470) Acquired absence of uterus with remaining cervical stump (Z90.711) Active confirmed Problem Food allergy (556461515) Allergy to other foods (Z91.018) Active confirmed Problem Attention deficit hyperactivity disorder (326659730) ADHD, unspecified type (F90.9) Active confirmed Problem Gastro-esophageal reflux disease without esophagitis (457381035) Gastro-esophageal reflux disease without esophagitis (K21.9) Active confirmed Problem 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, 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 confirmed Problem Premenstrual dysphoric disorder (237779) Premenstrual dysphoric disorder (F32.81) Active confirmed Problem 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) MTHFR Deficiency (E72.12) Active confirmed Problem Fatty liver (182177140) Fatty Liver (K76.0) Active confirmed Vital Signs Temperature 96.8 degrees Fahrenheit 01/06/2025 Oximetry 97 01/06/2025 Blood pressure diastolic 80 mm Hg 01/06/2025 Height 63.5 in 01/06/2025 Blood pressure systolic 128 mm Hg 01/06/2025 Weight 185.2 lbs 01/06/2025 BMI 32.29 kg/m2 01/06/2025 Procedures Procedure Date Ordered Date Performed Result Body Sit e Spirometry 07/02/2024 N/A Encounters Encounter Location Date Provider Diagnosis [facility] [address] [place] [address] 04/27/2024 Sweta Valle Asthma Mild intermittent, uncomplicated J45.20 [facility] [address] [place] [address] 05/08/2024 Charity Cook ADHD, unspecified type F90.9 [facility] [address] [place] [address] 07/02/2024 Sweta Valle [facility] [address] [place] [address] 07/03/2024 Sweta Valle [facility] [address] [place] [address] 07/17/2024 Sweta Valle Acne unspecified L70 .9 [facility] [address] [place] [address] 07/30/2024 Charity Cook [facility] [address] [place] [address] 08/03/2024 Sweta Valle [facility] [address] [place] [address] 08/04/2024 Charity Cook [facility] [address] [place] [address] 08/25/2024 Sweta Valle Asthma Mild intermittent, uncomplicated J45.20 [facility] [address] [place] [address] 09/30/2024 Sweta Valle BMI 31.0-31.9, adult Z68.31 [facility] [address] [place] [address] 10/29/2024 Sweta Leonard [facility] [address] [place] [address] 11/01/2024 Sweta Valle [facility] [address] [place] [address] 12/30/2024 Sweta Valle Asthma Mild intermittent, uncomplicated J45.20 [facility] [place] [address] [place] [address] 01/06/2025 Sweta Valle [facility] [address] [place] [address] 01/06/2025 Sweta Valle [facility] [address] [place] [address] 01/25/2025 Sweta Valle ADHD, unspecified ty pe F90.9 ; 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.01 and BMI 32.0-32.9, adult Z68.32 [facility] [address] [place] [address] 02/09/2025 Sweta Valle [facility] [address] [place] [address] 03/04/2025 Charity Cook [facility] [place] [address] [place] [address] 05/08/2024 Sweta Valle No Show or Late Canc el NS.LTCX [place] [address] [place] [address] 07/02/2024 Sweta Valle Asthma Mild intermittent, uncomplicated [...] and Menopausal and female climacteric states N95.1 [facility] [address] [place] [address] 09/30/2024 Sweta Valle Asthma Mild intermittent, uncomplicated J45.20 ; ADHD, unspecified type F90.9 ; BMI 32.0-32.9, adult Z68.32 and Osteopenia NOS M85.80 [facility] [address] [place] [address] 10/14/2024 Sweta Valle BMI 31.0-31.9, adult Z68.31 and Fatty Liver K76.0 [facility] [address] [place] [address] 08/04/2024 Charity Cook Osteopenia NOS M85.80 ; Menopausal and female climacteric states N95.1 and Eczema NOS L25.9 [facility] [address] [place] [address] 01/06/2025 Swetabessy Valle ADHD, unspecified ty pe F90.9 ; Anxiety (unspecified) F41.9 ; 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.01 ; Fatty Liver K76.0 and BMI 32.0-32.9, adult Z68.32 [facility] [address] [place] [address] 10/29/2024 Sweta Valle BMI 32.0-32.9, adult Z68.32 [...] ACT score: 19 Not controlled. Will restart michaelxela. 09/30/2024 ADHD, unspecified type (ICD-10 - F90.9) [...] - Z68.31) She will look into the YouTube ulisses to track her food intake. Protein [...] if it isn't we will try wegovy 05/08/2024 No Show or Late Cancel (ICD-10 [...] 2x per week. Fatty fish include: [place], [place], [place], Sardines, Tuna, [place], Hallibut. 6. Make sure you are getting enough protein each day. You need 0.8 to 1.5 mg/kg depending on your activity level and health. 7. Use this USDA calculator for finding calories needed per day to support current weight, as well as finding other personalized nutrient needs, like protein and vitamins. https://www.nal.u sda.gov/human-nut ylgbcq-dgs-taal-s afety/dri-calcula tor 8. Limit processed foods and [...] 13. Find ways to manage stress. Resources: https://www.[facility]. [facility] .deep[place].edu/olivia moise/darrius-jess lthy https://diabetes. org/food-nutritio n https://nutrition source.[facility]/wp-content /uploads// DOVouoe9235-8564. pdf My Plate https://www.ROI land investmentpla Accedo.gov/whatsonmyp late?utm_source=G oogleSEM&utm_medi um=[facility]&utm_campai gn=uplevel-mypl.. . On line Exercise https://AppShare/exe rcise-wellness/?c mp=RUT-KSZ-ZZW-Ex erciseWellness-.. . https://wwwKanichi Research Services/OfferWire /blog/free-home-w orkouts/ https://www.nhs.u k/conditions/nhs- fitness-studio/ 07/02/2024 Asthma [...] Rx sent for MHT with instructions s 01/06/2025 Anxiety (unspecified) (ICD-10 - F41.9) disc square breathing then 54438 in the moment to stop if fromspiraling out of control. disc doing nightly body scans then leaves on a stream. 01/06/2025 ADHD, unspecified type (ICD-10 - F90.9) Amphetamine-Dextr oamphetamine 10 MG Tablet twice a day - Discontinue Adderall 10mg - Start Vyvanse 10mg in the morning - Follow up in 3 months to assess efficacy 04/27/2024 Asthma Mild intermittent, uncomplicated (ICD-10 - J45.20) 05/08/2024 ADHD, unspecified type (ICD-10 - F90.9) 07/17/2024 Acne unspecified (ICD-10 - L70.9) 08/25/2024 Asthma Mild intermittent, uncomplicated (ICD-10 - J45.20) 09/30/2024 BMI 31.0-31.9, adult (ICD-10 - Z68.31) 12/30/2024 Asthma Mild intermittent, uncomplicated (ICD-10 - J45.20) 01/25/2025 ADHD, unspecified type (ICD-10 - F90.9) 01/25/2025 Insomnia due to medical condition (ICD-10 - G47.01) 08/04/2024 Eczema NOS (ICD-10 - L25.9) s 01/06/2025 Insomnia due to medical condition (ICD-10 - G47.01) - Start Hydroxyzine 25mg at night as needed - Advised to journal thoughts before bed To help with insomnia that prevents you from falling asleep try working on sleep hygiene: 1. Have a routine each night to prepare for bed. Examples chamille tea, lavendar bubble bath, soft music, reading, meditation. 2. No screens within 1 hour of bed time. 3. Have regular bed times and wake up times, even on weekends. 4. Limit caffeine and nicotine after dinner. 5. Try doing a body scan (look on youtube) when you first go to bed. Consider doing mindfulness for insomnia or color noises found on youtube. 6. Keep your bedroom cool, dark, and quiet to promote restful sleep. 7. Ensure your mattress and pillows are comfortable and supportive. 8. Use your bedroom exclusively for sleeping and sex to strengthen the association between your bed and sleep. 9. If you can't fall asleep after about 15 to 20 minutes, get out of bed and do a quiet, relaxing task until you feel sleepy To help you fall back to sleep if you wake up during the night: 1. Try an extended release melatonin or magnesium glycinate, found over the counter. 2. Try a body scan found on youtube. 3. Cognitive behavioral therapy for insomnia (CBT-I), including stimulus control (e.g., getting out of bed when unable to sleep, using the bed only for sleep and sex) and sleep restriction, is the first-line approach to help fall back asleep after waking during the night. 4. Work on sleep hygiene. 5. Find ways to deal with stress in a healthy way: mindfulness, exercise, journaling, eating healthy. 6. Store clocks out of sight. 7. Get daily sun exposure. 8. Avoid fatty, spicy, acidic and heavy meals after 6 pm. 07/02/2024 Nonalcoholic steatohepatitis ([place]) (ICD-10 - K75.81) Continue to work with GI. Avoid alcohol, fried, fatty or greasy foods 10/29/2024 Fatty Liver (ICD-10 - K76.0) Fatty [...] vitamin d rich foods. https://nutrition source.[facility]/vitamin-d/ 10/29/2024 Allergic rhinitis, Other (ICD-10 - J30.89) Stop taking sonia with zyrtec. Rec xyzal instead. Continue flonase and add pattaday drops. Will send to Dr. Martin in [place] for referral 07/02/2024 Adrenocortical insufficiency, other (ICD-10 - E27.49) 01/06/2025 Fatty Liver (ICD-10 - K76.0) - Continue monitoring liver function - Advised to avoid fried, fatty, greasy foods - Recommended to try GABRIELLE-E supplement if available - Follow up with GI doctor for ultrasound results and barium swallow 01/25/2025 BMI 32.0-32.9, adult (ICD-10 - Z68.32) 07/02/2024 MTHFR Deficiency (ICD-10 - E72.12) Food [...] vegetables (turnip greens, spinach, amari lettuce, asparagus, [place] sprouts, broccoli) Beans Peanuts [place] seeds Fresh fruits, fruit juices Whole grains [...] skin; mouth sores. (Source: https://nutrition source.[facility]/folic-acid /) 01/06/2025 BMI 32.0-32.9, adult (ICD-10 - Z68.32) - Continue Phentermine 37mg in the morning - Combined follow-up for ADHD and weight management in 3 months To help with weight loss: Movement: Your goal is 150 minutes a week with your heart rate elevated and a being a little short of breath. Weights: Use weights or resistance bands 2x per week. Muscle sams more calories than fat. [facility] has on line exercise programs at https://[facility] campuskvaaa-gyarqd-agrt er.Lazarus Effect.[facility]/ At that same link are lots of other informative programs. You will be asked to join the group but it does not mean you have to have weight loss surgery or even go see the Weight Center. Diet: Focus on getting enough protein each day. Calculate your protein goal at https://www.Scil Proteins. CytoSolva.Crispy Driven Pixels/human-nut atbmjb-tzp-cpcr-s [facility]/margaretcalcjonathan delgado. It will also calculate your calorie goal to MAINTAIN weight. To loose weight, subtract 200-500 calories a day. Your next focus should be on making sure you drink 8-12 cups of water each day. Avoid processed foods, especially white rice, white bread, pastries and white pasta. Avoid sugary drinks, including diet sodas and fruit juice. Avoid or at limit, artificial sweetners like splenda, sweet and low and equal. Finally, work on getting 3 vegetable servings and 2 fruit servings each day. One of the fruit servings should be berries. Try to eat low glycemic fruits and vegetables. Aim for 30 grams of fiber a day, from healthyfoods. Nutrition IX Track ulisses (looks like a green apple with a calendar inside it), will track your food, protein, carbs, etc, for free. The following website will help you determine how many calories and protein you need to MAINTAIN weight. Once calculated, subtract 200-500 calories per day to LOOSE weight. https://www.Scil Proteins. CytoSolva.Crispy Driven Pixels/human-nut otlhgu-owd-vwzh-s [facility]/i-calcjonathan delgado Medications: Candidates for pharmacologic therapy include adults with a body mass index (BMI) greater than 30 kg/m2, or a BMI of 27 to 29.9 kg/m2 with comorbidities, who have not met weight loss goals (loss of at least 5 percent of total body weight at three to six months) with a comprehensive lifestyle intervention. Medication options: Injectable: Tirzepatide/Mounj nadege/Zepbound, Semaglutide/Ozemp ic/Wegovy, Liraglutide/Victo za, Dulaglutide/[place], Exenatide/Byetta Oral medications: Phenteramine, Phentarimine-Clifton rimate, Naltrexone/Buprop ion, Orlistat, oral Semaglutide, SGLT2 inhibitors (Bexagliflozin,Ca naflozin, Dapagliflozin, Empagliflozin, Ertugliflozin, Sotagliflozin), Metformin There are risks, benefits and side effects to each medication. Some of these help with diabetes, help decrease cardiovascular disease We should also review your medication list to see if you are on medications that can be playing a role in weight gain. If so, we should look to see if their is a weight neutral medication to switch to. [facility] resources: At [facility] have a [facility] group. We also can refer you to a lidder/nutriti onal specialist. There is some evidence that acupuncture can help with weight loss as well. 10/29/2024 Pain Neck (ICD-10 - M54.2) Pt is requesting referral to [facility] for her neck 07/02/2024 Encounter for immunization (ICD-10 - Z23) [...] dairy products and cereals. Cod liver oil Hitchins Swordfish Tuna fish Wilson juice fortified with vitamin D Dairy and plant milks fortified with vitamin D Sardines Beef liver Egg yolk Fortified cereals (Source: https://nutrition source.[facility]/vitamin-d/ ) 07/02/2024 ADHD, unspecified type (ICD-10 - [...] 01/06/2025 Other - Resend chiropractic referral to [facility] in [place], [place] Plan Of Treatment Pending Test Test Name Order Date X ray : Spines, lumbosacral 06/22/2021 X ray : Knee, right 01/18/2020 Mammogram 02/07/2022 Mammogram 01/18/2021 Spirometry 05/03/2023 Spirometry 05/29/2023 Spirometry 07/24/2023 X ray : Spines, thoracic spine Colonoscopy 02/07/2022 Colonoscopy 01/18/2021 Colonoscopy 03/08/2022 GGTP 01/01/2020 Ultrasound : Trans Vaginal 04/22/2020 PAP, cervical; HPV Hybrid Capture High R isk DNA Probe any Dx 12/31/2016 Mammogram, routine annual screening 12/19 -ANTINUCLEAR ANTIBODIES TITER AND PATTER N 01/29/2020 FREE T3 01/01/2020 VITAMIN B12 01/18/2020 HSCRP 01/01/2020 COMPREHENSIVE METABOLIC PANL 05/03/2023 COMPREHENSIVE METABOLIC PANL 01/12/2019 COMPREHENSIVE METABOLIC PANL 01/06/2018 COMPREHENSIVE METABOLIC PANL 01/18/2021 COMPREHENSIVE METABOLIC PANL 10/28/2018 COMPREHENSIVE METABOLIC PANL 11/11/2018 COMPREHENSIVE METABOLIC PANL 01/18/2020 COMPREHENSIVE METABOLIC PANL 02/07/2022 COMPREHENSIVE METABOLIC PANL 07/05/2022 LIPID PANEL 05/03/2023 LIPID PANEL 02/07/2022 LIPID PANEL 01/18/2020 LIPID PANEL 01/12/2019 LIPID PANEL 01/18/2021 TSH WITH REFLEX TO T4 01/12/2019 TSH WITH REFLEX TO T4 01/06/2018 TSH WITH REFLEX TO T4 02/07/2022 ESTRADIOL 07/05/2022 ESTRADIOL 02/07/2022 FSH 07/05/2022 FSH 02/07/2022 LH 07/05/2022 LH 02/07/2022 PROGESTERONE 07/05/2022 PROGESTERONE 02/07/2022 TSH 01/18/2020 Vitamin D25 OH 01/18/2020 Vitamin D25 OH 02/07/2022 Vitamin D25 OH 05/03/2023 Vitamin D25 OH 01/12/2019 FREE T4 01/01/2020 CBC AUTO DIFF 01/12/2019 CBC AUTO DIFF 05/03/2023 CBC AUTO DIFF 01/18/2021 CBC AUTO DIFF 07/05/2022 CBC AUTO DIFF 01/18/2020 CBC AUTO DIFF 02/07/2022 MRI Brain W/O Contrast 02/07/2022 GGTP 10/28/2018 GGTP 11/11/2018 HOMOCYSTEINE, PLASMA 01/01/2020 MRA : Head without [...] 04:00:00 PM, [address], [place], [id number], Insurance Providers Payer Name Payer Address Payer Phone Subscriber Number Group Number Insured Name Patient Relationship to Insured Coverage Start Date Coverage End Date [employer] [place] ([place]) [address] [address] [place] [address] [id number] LASHONDA ARREGUIN Self - patient is the [...]
--- OUTSIDE RECORDS SUMMARY | 2025-03-08 20:11 | XMS_ITS | Encounter Summary ---
Author Organization [facility] Address [address] [place] [address] Phone Care Team Providers Care Conveyor Man Name Role Phone Isabel Chan Gordo MENESES Unavailable [phone] Susie Kirk MD Unavailable [phone] Charity Cook MD Primary Care Provider + Charity Cook MD Unavailable [phone] Encounter Details Date Type Department Care Team (Late st Contact Info) Description 01/19/2021 Ancillary Orders Virtual Department [address] [place] [address] Yelena Leung PA [address] [place] [address] [email or web address] Breast screening Social History Tobacco Use Types [...] documented as of this encounter Care Teams Conveyor Man Relationship Specialty Start Date End Date Charity Cook MD [address] [place] [address] PCP - General Family Medicine 01/28/18 Isabel Chan CNM [address] [place] [address] Historical LMR Provider 03/07/17 2 Susie Kirk MD [address] [place] [address], [address] [place] [address] [email or web address] Historical LMR Provider 03/07/17 05/27/21 Charity Cook MD [address] [place] [address] Insurance Assigned Provider 09/20/18 05/27/21 documented as of this encounter Additional Source Comments The information contained in this document represents components of the legal health record. It is not the complete legal health record.[facility]
--- OUTSIDE RECORDS SUMMARY | 2025-03-08 20:11 | XMS_ITS | Encounter Summary ---
Author Organization [facility] Address [address] [place] [address] Phone Care Team Providers Care Middle School Teacher Name Role Phone Charity Cook MD Primary Care Provider + Encounter Details Date Type Department Care Team (Late st Contact Info) Description 10/30/2021 Transcribe Orders Virtual Department [address] [place] [address] Yelena Leung PA [address] [facility] [address] [place] [address] [email or web address] Breast screening (Primary Dx) Social History Tobacco [...] unspecified documented in this encounter Care Teams Middle School Teacher Relationship Specialty Start Date End Date Charity Cook MD [address] [place] [address] PCP - General Family Medicine 01/28/18 documented as of this encounter Additional Source Comments The information contained in this document represents components of the legal health record. It is not the complete legal health record.[facility]
--- OUTSIDE RECORDS SUMMARY | 2025-03-08 20:11 | XMS_ITS | Encounter Summary ---
Author Organization [facility] Address [address] [place] [address] [place] [address] Phone Care Team Providers Care Trust Vault Custodian Name Role Phone Dustin Isabel Gordo MENESES Unavailable [phone] Reagan, Susie A Unavailable [phone] Susie Kirk MD Primary Care Provider [phone] Charity Cook MD Primary Care Provider + Charity Cook MD Unavailable [phone] Encounter Details Date Type Department Care Team (Late st Contact Info) Description 01/07/2018 Ancillary Orders Virtual Department [address] [place] [address] Amanda Pop PA-C [address] [place] [address] [email or web address] Breast screening Social History Tobacco Use [...] were interpreted in conjunction with [employer] Regional Clinical Director computer-aided detection. FINDINGS: Breast density: The breast [...] Images were interpreted inconjunction with [employer] Regional Clinical Director computer-aided detection. FINDINGS: Breast density: The breast [...] A M EST CoV-Risk 09/28/2021 09/28/2021 09/28/2021 7:0 5 PM EDT COVID-19 09/28/2021 09/28/2021 10/19/2021 1:22 AM EDT documented as of this encounter Care Teams Trust Vault Custodian Relationship Specialty Start Date End Date Susie Kirk MD [address] [place] [address] [email or web address] PCP - General 05/23/17 01/27/18 Charity Cook MD [address] [place] [phone] PCP - General Family Medicine 01/28/18 Isabel Chan CNM [address] [place] [address] Historical LMR Provider 03/07/17 2 Susie Kirk MD [address] [place] [address] [email or web address] Historical LMR Provider 03/07/17 05/27/21 Charity Cook MD [address] [place] [address] [email or web address] Insurance Assigned Provider 09/20/18 05/27/21 documented as of this encounter Additional Source Comments The information contained in this document represents components of the legal health record. It is not the complete legal health record.[facility]
--- OUTSIDE RECORDS SUMMARY | 2025-03-08 20:11 | XMS_ITS | Encounter Summary ---
Author Organization [facility] Address [address] [place] [address] Phone Care Team Providers Care White Sugar Supervisor Name Role Phone Isabel Chan ZAIRA Unavailable [phone] Susie Kirk MD Unavailable [phone] Charity Cook MD Primary Care Provider + Charity Cook MD Unavailable [phone] Encounter Details Date Type Department Care Team (Late st Contact Info) Description 01/19/2021 Procedure Pass [facility] - [address] [place] [address] Social History Tobacco Use Types Packs/Day Years [...] documented as of this encounter Care Teams White Sugar Supervisor Relationship Specialty Start Date End Date Charity Cook MD [address] [place] [address] PCP - General Family Medicine 01/28/18 Isabel Chan CNM [address] [place] [address] Historical LMR Provider 03/07/17 2 Susie Kikr MD [address] [place] [address], [address] [place] [address] [email or web address] Historical LMR Provider 03/07/17 05/27/21 Charity Cook MD [address] [place] [address] Insurance Assigned Provider 09/20/18 05/27/21 documented as of this encounter Additional Source Comments The information contained in this document represents components of the legal health record. It is not the complete legal health record.[facility]
--- OUTSIDE RECORDS SUMMARY | 2025-03-08 20:11 | XMS_ITS | Clinical Summary ---
Author Organization [facility] Address [address] [place] [address] Phone Care Team Providers Care Business Banking Representative Name Role Phone Charity Cook MD Primary [...] To prevent constipation 30 tablet 1 Active cyclobenzaprine (FLEXERIL) 5 MG tablet Take 1 tablet (5 mg total) by mouth 3 (three) times a day as needed (muscle spasms). 15 tablet 5 Active Active Problems Problem Noted Date Diagnosed [...] s creening laboratory testing for COVID-19 virus Encounters Date Type Department Care Team Description 02/04/2025 8:30 PM EDT - 02/04/2025 9:57 PM EDT Emergency [facility] [address] [place] [address] Discharge Disposition: Home or Self Care from Last 3 Months Immunizations Immunization Administration Dates Next Due COVID-19 [...] with a working camera? Not on file Intimate Partner Violence Answer Date R ecorded Are you denied basic needs s uch as food, clothing, or medical care? No 02/04/2025 In the past 12 months have y ou been in a relationship with a person who hurts, threatens, or tries to control you? No 02/04/2025 Are you denied basic needs s uch as food, clothing, or medical care? No 02/04/2025 In the past 12 months have y ou been in a relationship with a person who hurts, threatens, or tries to control you? No 02/04/2025 Comments No Sex and Gender Information Value Date Recorded Sex Assigned at Not on file Legal Sex Female 9:30 PM EDT Gender Identity Not on file Sexual Orientation Not on file Occupation Industry Job Start Date Job End Date Working Not on file Not on file Not on file Last Filed Vital Signs Vital Sign Reading Time Taken Comments Blood Pressure 136/85 02/04/2025 9:46 PM EDT Pulse 78 02/04/2025 9:46 PM EDT Temperature 36.2 C (97.1 F) 02/04/2025 9:46 PM EDT Respiratory Rate 16 02/04/2025 9:46 PM EDT Oxygen Saturation 98% 02/04/2025 9:46 PM EDT Inhaled Oxygen Concentration - - Weight 81.6 kg (180 lb) 02/04/2025 7:31 PM EDT Height 161.3 cm (5' 3.5 ) 02/04/2025 7:31 PM EDT Body Mass Index 31.39 02/04/2025 7:31 PM EDT Plan of Treatment Health Maintenance Due Date Last Done Comments DEPRESSION SCREENING 1986 HEPATITIS C SCREENING 01/17/1992 HIV ONE-TIME SCREENING (18-6 5 YEARS) 01/17/1992 SCREENING FOR DIABETES 2009 COLOGUARD 2019 COLONOSCOPY 2019 COLORECTAL CANCER SCREENING 2019 FIT TEST 2019 FOBT 2019 SIGMOIDOSCOPY 2019 VIRTUAL COLONOSCOPY 2019 PAP SMEAR 12/22/2022 12/23/2019, 12/23/2019 MAMMOGRAM 01/25/2023 01/25/2021, 01/28/2018 PNEUMOCOCCAL VACCINES (50+ years) (1 of 1 - PCV) 01/17/2024 ZOSTER VACCINES (1 of 2) 01/17/2024 Adult Td,Tdap Booster 07/12/2024 07/12/2014 , 07/12/2014 INFLUENZA VACCINE (#1) 2024 , 02/07/2020 COVID-19 VACCINE (4 - 2024-2 6 season) 2025 05/26/2021, 07/20/2020, 06/22/2020 LIPID PANEL 01/21/2025 01/22/2020, 09/22/2015 RSV VACCINE (1 - 1-dose 75+ series) 2049 SMOKING STATUS SCREENING (On ce After 26 [...] this topic Medical Devices Implanted Type Area Inker And Opaquer Device Identifier Shelf Expiration Date Model / [...] dense, which could obscurea lesion on mammography. us Yelena PASTRANA IMG MG EXAMS Final Resul t * Pap Smear (12/23/2019 12:00 AM EDT) 12/23/2019 12/24/2019 1:5 2 PM EDT Narrative SEE NARRATIVE - 12/29/2019 2:25 [place] [address] Convertible Sofa Bedspring Tester: Kelley Dickinson MD [employer] MOLD MAKER Cytology Report FINAL DIAGNOSIS A. PAP SMEAR [...] 52, 56, 58, 59, 66, 68) by [employer]! 360 HR-HPV analysis. Clinical correlation is advised. This HPV test was performed at [facility], [address] [place] [address]. This test has been FDA approved for [facility] cervical cytology specimens. The accuracy and precision of this test for all other specimen sources has been verified in the Cytopathology Laboratory of the [facility] and has not been cleared or approved by the U.S. Food and Drug Administration. Clinical correlation is advised. CLINICAL HISTORY Date of Last Menstrual Period: N/A Contraceptive History: Hormonal Progesterone: oral Other Clinical Conditions: Screening Pap SPECIMEN SOURCE A: PAP SMEAR (SUREPATH) CE Patient Name: KAIT RAMIREZ : 1975 (Age: 44) Sex: F Institution: [facility] Location: [facility] Date of Collection: 12/23/2019 Date of Reported: 12/28/2019 16:20 Results to: Ashleigh Holland MD us Ashleigh Holland MD CYTOLOGY ORDERABLES Edited Result - Final SEE NARRATIVE * Outside LDL (09/22/2015) LDL - External 103 50 - 250 mg/ml us Historical Provider LAB BLOOD ORDERABLES Reina l Result from Last 3 Months or Most Recently Relevant to Health Maintenance Insurance [employer]AT[employer]RAT[employer] Advance Directives For more information, please contact: [phone] (9AM - 5PM [facility], Saturday-Saturday) Documents on File Type Date Recorded Patient Food Vendor Expl anation Healthcare Proxy 09/09/2020 2:11 PM * Full Code (Latest Code Status on File) Date Activated Date Inactivated Comments 09/27/2020 6:16 AM Question Answer Comments Code Status Confirmed With: Patient Care Teams Business Banking Representative Relationship Specialty Start Date End Date Charity Cook MD [address] [place] [address] [email or web address] PCP - General Family Medicine 01/28/18 Additional Source Comments The information contained in this document represents components of the legal health record. It is not the complete legal health record.[facility]
== END 2025-03-08 16:34 | disposition home or self-care (01) ==
LOC: HO.HGI 15:51
PROVIDERS: Visit Provider Internal Medicine
DX: R74.8 Abnormal levels of other serum enzymes (principal); K76.0 Fatty (change of) liver, not elsewhere classified
CPT/HCPCS: 99214